=== PATIENT | female | born 1965 | race Hispanic/Latino ===

== ENCOUNTER 2018-01-12 00:54 | Emergency (ER) | payer SELFPAY ==
[2018-01-12] MEDS ORDERED: DIPHENHYDRAMINE 50 MG/ML VIAL ONE (01:56)
[2018-01-12] MEDS ORDERED: KETOROLAC 30 MG/ML INJ ONE (01:56)
[2018-01-12] MEDS ORDERED: NA CHLORIDE 0.9% 1,000 ML ONE (01:56)
[2018-01-12] MEDS ORDERED: METOCLOPRAMIDE 10 MG/2mL INJ ONE (01:56)
--- NOTE | 2018-01-12 02:37 | ER ---
Nurse's Notes [facility] Name: Della Cortez Age: 52 yrs Sex: Female : 1965 Arrival Date: 01/12/2018 Time: 01:04 Bed 17 Private MD: Diagnosis: Migraine Presentation: 01/12 01:19 Presenting complaint: Patient states: "I have had a migraine since yesterday at noon, I bs1 have a history of migraines, I am very sensitive to light and I am nauseous.". Transition of care: patient was not received from another setting of care. Onset of symptoms was January 11, 2018 at 12:00. Initial Sepsis Screen: Does the patient meet any 2 criteria? No. Patient's initial sepsis screen is negative. Does the patient have a suspected source of infection? No. Patient's initial sepsis screen is negative. Care prior to arrival: None. 01:19 Method Of Arrival: Ambulatory bs1 01:19 Acuity: MURRAY 4 bs1 Triage Assessment: 01:27 Headache History: The patient has had previous headaches and this one is similar to bs1 previous episodes. General: Appears in no apparent distress. uncomfortable. Pain: Also complains of nausea, inability to concentrate, sensitive to light. Pain: Complains of pain in head- frontal region. 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 - Social history:: Smoking status: Patient/guardian denies using tobacco. Screenin:23 Abuse screen: Denies threats or abuse. Denies injuries from another. Nutritional bs1 screening: No deficits noted. Tuberculosis screening: No symptoms or risk factors identified. Fall Risk None identified. Assessment: 01:25 General: Appears in no apparent distress. uncomfortable, Behavior is calm, cooperative, bs1 appropriate for age. Pain: Complains of pain in head- frontal Pain does not radiate. Pain currently is 10 out of 10 on a pain scale. Quality of pain is described as throbbing, Pain began gradually. Neuro: Level of Consciousness is awake, alert, obeys commands, Oriented to person, place, time, situation, Appropriate for age Instrument Adjuster are equal bilaterally Moves all extremities. Reports headache frontal area. Cardiovascular: Denies chest pain, palpitations, shortness of breath, Heart tones S1 S2 present. Cardiovascular: Capillary refill < 3 seconds Patient's skin is warm and dry. Respiratory: Airway is patent Trachea midline Respiratory effort is even, unlabored, Respiratory pattern is regular, symmetrical, Breath sounds are clear bilaterally. GI: Abdomen is round Bowel sounds present X 4 quads. Reports nausea. : No deficits noted. No signs and/or symptoms were reported regarding the genitourinary system. EENT: Reports sensitivity to light. Derm: Skin is intact, Skin is pink, warm \\T\\ dry. Skin temperature is warm. Musculoskeletal: Circulation, motion, and sensation intact. Capillary refill < 3 seconds, Range of motion: intact in all extremities. Vital Signs: 01:24 BP 128 / 87; Pulse 68; Resp 17; Temp 97.4(T); Pulse Ox 97% on R/A; Weight 83.91 kg; bs1 Height 5 ft. 2 in. (157.48 cm); Pain 10/10; 02:30 BP 101 / 72; Pulse 74; Resp 17; Pulse Ox 100% on R/A; Pain 0/10; bs1 01:24 Body Mass Index 33.84 (83.91 kg, 157.48 cm) bs1 ED Course: 01:04 Patient arrived in ED. es 01:17 Ruben Roth NP is PHCP. pm1 01:17 Joesph Wood MD is Attending Physician. pm1 01:19 Shelly Skinner RN is Primary Nurse. bs1 01:21 Triage completed. bs1 01:27 Patient has correct armband on for positive identification. Bed in low position. Call bs1 light in reach. Side rails up X 1. Pulse ox on. NIBP on. 01:28 Arm band placed on left wrist. bs1 02:02 Inserted saline lock: 22 gauge in right antecubital area, using aseptic technique. bs1 02:52 No provider procedures requiring assistance completed. bs1 02:53 IV discontinued, bleeding controlled, No redness/swelling at site. Pressure dressing bs1 applied. Administered Medications: 02:02 Drug: Reglan 10 mg Route: IVP; Site: right antecubital; bs1 02:54 Follow up: Response: No adverse reaction bs1 02:02 Drug: Benadryl 25 mg Route: IVP; Site: right antecubital; bs1 02:54 Follow up: Response: No adverse reaction bs1 02:02 Drug: TORadol 30 mg Route: IVP; Site: right antecubital; bs1 02:54 Follow up: Response: No adverse reaction; Pain is decreased bs1 02:02 Drug: NS 0.9% 1000 ml Route: IV; Rate: 1000 ml; Site: right antecubital; bs1 02:53 Follow up: IV Status: Order to discontinue infusion; IV Intake: 700ml bs1 Intake: 02:53 IV: 700ml; Total: 700ml. bs1 Outcome: 02:36 Discharge ordered by MD. pm1 02:53 Discharged to home ambulatory. bs1 02:53 Condition: stable 02:53 Discharge instructions given to patient, Instructed on discharge instructions, follow up and referral plans. medication usage, Demonstrated understanding of instructions, follow-up care, medications, Prescriptions given X 1. 02:54 Patient left the ED. bs1 Signatures: Rochelle Fiore Patrick, NP SUIT MAKER pm1 Shelly Skinner RN RN bs1
--- NOTE | 2018-01-12 02:37 | EDPHYS ---
Physician Documentation [facility] Name: Della Cortez Age: 52 yrs Sex: Female : 1965 Arrival Date: 01/12/2018 Time: 01:04 Bed 17 Private MD: ED Physician Joesph Wood HPI: 01/12 01:49 This 52 yrs old Female presents to ER via Ambulatory with complaints of pm1 Headache. 01:49 The patient complains of pain to the forehead and right eye. The patient describes the pm1 headache as aching, constant. Onset: The symptoms/episode began/occurred yesterday. Associated signs and symptoms: Pertinent positives: nausea, Pertinent negatives: altered mental status, fever, vomiting. Severity of symptoms: in the emergency department the pain is actually worse. Headache History: The patient has had previous headaches and this one is similar to previous episodes. The symptoms are alleviated by nothing. the symptoms are aggravated by lights. The patient has experienced similar episodes in the past, and the symptoms today are exactly the same, to previous migraine headaches. The patient has not recently seen a physician. 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 - Social history:: Smoking status: Patient/guardian denies using tobacco. ROS: 01:49 Constitutional: Negative for fever, chills, and weight loss, Eyes: Negative for injury, pm1 pain, redness, and discharge, ENT: Negative for injury, pain, and discharge, Neck: Negative for injury, pain, and swelling, Cardiovascular: Negative for chest pain, palpitations, and edema, Respiratory: Negative for shortness of breath, cough, wheezing, and pleuritic chest pain, Abdomen/GI: Negative for abdominal pain, nausea, vomiting, diarrhea, and constipation, Back: Negative for injury and pain, MS/Extremity: Negative for injury and deformity, Skin: Negative for injury, rash, and discoloration. :49 Neuro: Positive for headache. Exam: :49 Constitutional: This is a well developed, well nourished patient who is awake, alert, pm1 and in no acute distress. Head/Face: Normocephalic, atraumatic. Eyes: Pupils equal round and reactive to light, extra-ocular motions intact. Lids and lashes normal. Conjunctiva and sclera are non-icteric and not injected. Cornea within normal limits. Periorbital areas with no swelling, redness, or edema. ENT: Nares patent. No nasal discharge, no septal abnormalities noted. Tympanic membranes are normal and external auditory canals are clear. Oropharynx with no redness, swelling, or masses, exudates, or evidence of obstruction, uvula midline. Mucous membranes moist. Neck: Trachea midline, no thyromegaly or masses palpated, and no cervical lymphadenopathy. Supple, full range of motion without nuchal rigidity, or vertebral point tenderness. No Meningismus. Chest/axilla: Normal chest wall appearance and motion. Nontender with no deformity. No lesions are appreciated. Cardiovascular: Regular rate and rhythm with a normal S1 and S2. No gallops, murmurs, or rubs. Normal PMI, no JVD. No pulse deficits. Respiratory: Lungs have equal breath sounds bilaterally, clear to auscultation and percussion. No rales, rhonchi or wheezes noted. No increased work of breathing, no retractions or nasal flaring. Abdomen/GI: Soft, non-tender, with normal bowel sounds. No distension or tympany. No guarding or rebound. No evidence of tenderness throughout. Back: No spinal tenderness. No costovertebral tenderness. Full range of motion. Skin: Warm, dry with normal turgor. Normal color with no rashes, no lesions, and no evidence of cellulitis. MS/ Extremity: Pulses equal, no cyanosis. Neurovascular intact. Full, normal range of motion. :49 Neuro: Orientation: is normal, Mentation: is normal, Cranial nerves: CN II- XII are normal as tested, Cerebellar function: normal finger to nose testing, Motor: moves all fours, Sensation: is normal, no obvious gross deficits. Vital Signs: 01:24 BP 128 / 87; Pulse 68; Resp 17; Temp 97.4(T); Pulse Ox 97% on R/A; Weight 83.91 kg; bs1 Height 5 ft. 2 in. (157.48 cm); Pain 10/10; 02:30 BP 101 / 72; Pulse 74; Resp 17; Pulse Ox 100% on R/A; Pain 0/10; bs1 01:24 Body Mass Index 33.84 (83.91 kg, 157.48 cm) bs1 MDM: 01:21 Patient medically screened. darline 01:49 Data reviewed: vital signs. Data interpreted: Pulse oximetry: on room air is 97 %. pm1 Interpretation: normal. 02:36 Counseling: I had a detailed discussion with the patient and/or guardian regarding: the pm1 historical points, exam findings, and any diagnostic results supporting the discharge/admit diagnosis, the need for outpatient follow up, to return to the emergency department if symptoms worsen or persist or if there are any questions or concerns that arise at home. Administered Medications: 02:02 Drug: Reglan 10 mg Route: IVP; Site: right antecubital; bs1 02:54 Follow up: Response: No adverse reaction bs1 02:02 Drug: Benadryl 25 mg Route: IVP; Site: right antecubital; bs1 02:54 Follow up: Response: No adverse reaction bs1 02:02 Drug: TORadol 30 mg Route: IVP; Site: right antecubital; bs1 02:54 Follow up: Response: No adverse reaction; Pain is decreased bs1 02:02 Drug: NS 0.9% 1000 ml Route: IV; Rate: 1000 ml; Site: right antecubital; bs1 02:53 Follow up: IV Status: Order to discontinue infusion; IV Intake: 700ml bs1 Disposition: 18 02:36 Discharged to Home. Impression: Migraine. - Condition is Stable. - Discharge Instructions: Migraine Headache. - Prescriptions for Fiorinal 50- 325-40 mg Oral Capsule - take 1 capsule by ORAL route every 4 hours As needed - not to exceed 6 capsules per day; 20 capsule. - Medication Reconciliation Form, Thank You Letter, Work release form form. - Follow up: Emergency Department; When: As needed; Reason: Worsening of condition. Follow up: Private Physician; When: 2 - 3 days; Reason: Recheck today's complaints, Continuance of care, Re-evaluation by your physician. - Problem is new. - Symptoms have improved. Addendum: 01/13/2018 07:27 Co-signature as Attending Physician, Joesph Wood MD I agree with the assessment and c hampton plan of care. Signatures: Joesph Wood, Ruben Haynes MD, cha, FORMING YARDAGE CONTROL OPERATOR FORMING YARDAGE CONTROL OPERATOR pm1 Shelly Skinner, RN RN bs1
[2018-01-12 03:14] VITALS: BP 128/87; TEMP 97.4; O2SAT 97
== END 2018-01-12 02:54 | disposition home or self-care (01) ==
LOC: ER 00:54
DX: G43.909 Migraine, unspecified, not intractable, without status migrainosus (principal); E11.9 Type 2 diabetes mellitus without complications; Z88.0 Allergy status to penicillin; Z88.1 Allergy status to other antibiotic agents
CPT/HCPCS: 96361; 96374; 96375; 99284; J2765; J7030

== ENCOUNTER 2018-04-12 05:30 | Emergency (ER) | payer SELFPAY ==
--- NOTE | 2018-04-12 06:27 | ER ---
Nurse's Notes [facility] Name: Della Cortez Age: 52 yrs Sex: Female : 1965 Arrival Date: 04/12/2018 Time: 05:34 Bed 8 Private MD: out of town, doctor Diagnosis: Type 2 diabetes mellitus with diabetic polyneuropathy Presentation: 04/12 05:42 Presenting complaint: Patient states: I've been having pain in my fingers and hands for tl2 about 3 days and now it's going up to my arms. My diabetes doctor said I'm developing nerve damage, but I haven't been able to get an appointment. Transition of care: patient was not received from another setting of care. Onset of symptoms was April 09, 2018. Risk Assessment: Do you want to hurt yourself or someone else? Patient reports no desire to harm self or others. Initial Sepsis Screen: Does the patient meet any 2 criteria? No. Patient's initial sepsis screen is negative. Does the patient have a suspected source of infection? No. Patient's initial sepsis screen is negative. Care prior to arrival: None. 05:42 Method Of Arrival: Ambulatory tl2 05:42 Acuity: MURRAY 4 tl2 Triage Assessment: 05:46 General: Appears in no apparent distress. uncomfortable, Behavior is calm, cooperative, tl2 appropriate for age. Pain: Complains of pain in right hand, left hand, right arm and left arm. Historical: - Allergies: 05:46 PENICILLINS; tl2 05:46 Levaquin; tl2 - Home Meds: 05:46 Metformin Oral [Active]; aspirin 81 mg Oral chew 1 tab once daily [Active]; tl2 - PMHx: 05:46 Diabetes - NIDDM; Migraines; Arthritis; tl2 - Immunization history:: Adult Immunizations up to date. - Social history:: Smoking status: Patient/guardian denies using tobacco. - Ebola Screening: : No symptoms or risks identified at this time. Screenin:47 Abuse screen: Denies threats or abuse. Nutritional screening: No deficits noted. tl2 Tuberculosis screening: No symptoms or risk factors identified. Fall Risk None identified. Assessment: 06:00 General: Appears in no apparent distress. uncomfortable, Behavior is calm, cooperative, bp appropriate for age. Pain: Complains of pain in right hand and left hand. Neuro: Level of Consciousness is awake, alert, obeys commands, Oriented to person, place, time, situation, Appropriate for age. Cardiovascular: No deficits noted. Respiratory: Airway is patent Respiratory effort is even, unlabored, Respiratory pattern is regular, symmetrical. GI: No signs and/or symptoms were reported involving the gastrointestinal system. : No signs and/or symptoms were reported regarding the genitourinary system. EENT: No deficits noted. Derm: No deficits noted. Musculoskeletal: Circulation, motion, and sensation intact. Range of motion: intact in all extremities. 07:03 Reassessment: Patient appears in no apparent distress at this time. Patient and/or tw2 family updated on plan of care and expected duration. Pain level reassessed. Patient is alert, oriented x 3, equal unlabored respirations, skin warm/dry/pink. Vital Signs: 05:46 BP 127 / 72; Pulse 65; Resp 18; Temp 97.7(O); Pulse Ox 97% on R/A; Weight 86.18 kg; tl2 Height 5 ft. 2 in. (157.48 cm); Pain 7/10; 06:44 BP 108 / 69; Pulse 72; Resp 16; Pulse Ox 99% on R/A; mt 05:46 Body Mass Index 34.75 (86.18 kg, 157.48 cm) tl2 ED Course: 05:34 Patient arrived in ED. es 05:35 out of town, doctor is Private Physician. es 05:36 Shaun Thomas, RN is Primary Nurse. bp 05:43 Triage completed. tl2 05:46 Arm band placed on right wrist. tl2 05:47 Patient has correct armband on for positive identification. Bed in low position. Call tl2 light in reach. Side rails up X 1. 06:10 [facility]endano [facility] jr8 06:10 Trevor Benavides MD is Attending Physician. jr8 07:02 No provider procedures requiring assistance completed. Patient did not have IV access tw2 during this emergency room visit. Administered Medications: No medications were administered Outcome: 06:27 Discharge ordered by . jr8 07:02 Discharged to home ambulatory. tw2 07:02 Condition: stable 07:02 Discharge instructions given to patient, Instructed on discharge instructions, follow up and referral plans. medication usage, Demonstrated understanding of instructions, follow-up care, medications, Prescriptions given X 1. 07:03 Patient left the ED. tw2 Signatures: Rochelle Fiore Josh, PA PA jr8 Radha Dunn RN RN tw2 Otilia Bledsoe RN RN tl2 Errol Shineah Shaun Alvarado RN RN bp
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
[2018-04-12 07:09] VITALS: TEMP 97.7
[2018-04-12 07:10] VITALS: BP 108/69; O2SAT 99
== END 2018-04-12 07:03 | disposition home or self-care (01) ==
LOC: ER 05:30
DX: E11.42 Type 2 diabetes mellitus with diabetic polyneuropathy (principal); Z79.84 Long term (current) use of oral hypoglycemic drugs; Z88.1 Allergy status to other antibiotic agents; Z88.0 Allergy status to penicillin; Z79.82 Long term (current) use of aspirin
CPT/HCPCS: 99282

== ENCOUNTER 2018-05-19 08:57 | Emergency (ER) | payer SELFPAY ==
[2018-05-19] MEDS ORDERED: METOCLOPRAMIDE 10 MG/2mL INJ ONE (09:41)
[2018-05-19] MEDS ORDERED: NA CHLORIDE 0.9% 1,000 ML ONE (09:41)
[2018-05-19] MEDS ORDERED: DIPHENHYDRAMINE 50 MG/ML VIAL ONE (09:41)
--- NOTE | 2018-05-19 10:53 | RAD REPORT ---
EXAM DESCRIPTION: RAD - Chest Pa And Lat (2 Views) - 05/19/2018 9:47 am CLINICAL HISTORY: cough, fever Chest pain. COMPARISON: Chest Single View dated 09/10/2017; Chest Pa And Lat (2 Views) dated 07/13/2017; Chest S meghann View dated 06/02/2017; Chest Single View dated 05/06/2017 FINDINGS: The lungs are clear of acute infiltrate. Small granuloma likely present left lung base lat erally. The heart is normal in size. No displaced fractures. IMPRESSION: No acute or concerning finding suspected.
--- NOTE | 2018-05-19 11:26 | ER ---
Nurse's Notes [facility] Name: Della Cortez Age: 52 yrs Sex: Female : 1965 Arrival Date: 05/19/2018 Time: 08:59 Bed 14 Private MD: out of town, doctor Diagnosis: Acute pharyngitis;Acute sinusitis Presentation: 05/19 09:08 Presenting complaint: Patient states: Pt reports sore throat, productive cough, vishnu ear ph pain, headache, mild SOB, dizziness, fever, and nausea x 3 days. TMAX 101, denies V/D. Transition of care: patient was not received from another setting of care. Onset of symptoms was May 19, 2018. Risk Assessment: Do you want to hurt yourself or someone else? Patient reports no desire to harm self or others. Initial Sepsis Screen: Does the patient meet any 2 criteria? No. Patient's initial sepsis screen is negative. Does the patient have a suspected source of infection? No. Patient's initial sepsis screen is negative. Care prior to arrival: Medication(s) given: Theraflu at 0400. 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 - Social history:: Smoking status: Patient/guardian denies using tobacco. - Ebola Screening: : No symptoms or risks identified at this time. Screenin:02 Abuse screen: Denies threats or abuse. Nutritional screening: No deficits noted. rb1 Tuberculosis screening: No symptoms or risk factors identified. Fall Risk None identified. Assessment: 09:02 General: Appears uncomfortable, Behavior is calm, cooperative, Reports fever for rb1 feeling ill for > 3 days, Last . Pain: Complains of pain in head Pain currently is 9 out of 10 on a pain scale. Neuro: Level of Consciousness is awake, alert, obeys commands, Oriented to person, place, time, situation. Cardiovascular: Capillary refill < 3 seconds is brisk in bilateral fingers. Respiratory: Airway is patent Respiratory effort is even, unlabored, Respiratory pattern is regular, symmetrical. Respiratory: Reports cough that is productive, yellow sputum Sputum is yellow. GI: No signs and/or symptoms were reported involving the gastrointestinal system. : No signs and/or symptoms were reported regarding the genitourinary system. Derm: Skin is dry, Skin is normal, Skin temperature is warm. 10:00 Reassessment: Patient appears in no apparent distress at this time. Patient and/or rb1 family updated on plan of care and expected duration. Pain level reassessed. Patient is alert, oriented x 3, equal unlabored respirations, skin warm/dry/pink. Patient states feeling better. 11:00 Reassessment: Patient appears in no apparent distress at this time. No changes from rb1 previously documented assessment. 11:30 Reassessment: Patient appears in no apparent distress at this time. Patient and/or rb1 family updated on plan of care and expected duration. Pain level reassessed. Patient is alert, oriented x 3, equal unlabored respirations, skin warm/dry/pink. Vital Signs: 09:10 BP 126 / 79; Pulse 89; Resp 18; Temp 98.0(TE); Pulse Ox 97% on R/A; Weight 83.91 kg; ph Height 5 ft. 2 in. (157.48 cm); Pain 9/10; 10:01 BP 106 / 92; Pulse 79; Resp 17; Pulse Ox 97% on R/A; dh3 10:51 BP 114 / 64; Pulse 83; Resp 16; Pulse Ox 99% on R/A; dh3 11:30 BP 119 / ???; Pulse 68; Resp 16; Pulse Ox 100% on R/A; rb1 09:10 Body Mass Index 33.84 (83.91 kg, 157.48 cm) ph ED Course: 08:59 Patient arrived in ED. sb2 09:00 out of town, doctor is Private Physician. sb2 09:02 Galindo Avina PA is PHCP. jmm 09:02 Joesph Wood MD is Attending Physician. jmm 09:02 Patient has correct armband on for positive identification. Bed in low position. Call rb1 light in reach. Side rails up X 1. Pulse ox on. NIBP on. 09:10 Triage completed. ph 09:13 Arm band placed on Patient placed in an exam room, on a stretcher. ph 09:18 Magda Rosen, RN is Primary Nurse. rb1 09:25 Missed attempt(s): 20 gauge in right hand. Bleeding controlled, band aid applied, dh3 catheter tip intact. 09:30 Inserted saline lock: 20 gauge in left antecubital area, using aseptic technique. Blood dh3 collected. 09:33 Strep swab sent to lab. dh3 09:44 X-ray completed. Patient tolerated procedure well. Patient moved to radiology via tm4 wheelchair. Patient moved back from radiology. 09:45 Chest Pa And Lat (2 Views) XRAY In Process Unspecified. EDMS 11:58 No provider procedures requiring assistance completed. IV discontinued, intact, hb bleeding controlled, No redness/swelling at site. Pressure dressing applied. Administered Medications: 09:26 CANCELLED (Duplicate Order): NS 0.45 % with KCl 20 mEq/L 1000 ml IV at 125 ml/hr once [facility] 09:50 Drug: Reglan 10 mg Route: IVP; Site: left antecubital; rb1 10:10 Follow up: Response: No adverse reaction rb1 09:50 Drug: diphenhydrAMINE 12.5 mg Route: IVP; Site: left antecubital; rb1 10:10 Follow up: Response: No adverse reaction rb1 09:50 Drug: NS 0.9% 1000 ml Route: IV; Rate: 1 bolus; Site: left antecubital; rb1 11:08 Follow up: IV Status: Completed infusion rb1 Outcome: 11:26 Discharge ordered by . [facility] 11:58 Discharged to home ambulatory. hb 11:58 Condition: stable 11:58 Discharge instructions given to patient, Instructed on discharge instructions, follow up and referral plans. medication usage, Demonstrated understanding of instructions, follow-up care, medications, Prescriptions given X 2. 11:59 Patient left the ED. hb Signatures: Dispatcher [employer] EDMS Mickail, JOSSY Medley Tracy 4 Reena Kang RN RN ph Magda Rosen, RN RN rb1 Eliz Sparks RN RN [facility] Ayanna Osuna 2
--- NOTE | 2018-05-19 11:26 | EDPHYS ---
Physician Documentation [facility] Name: Della Cortez Age: 52 yrs Sex: Female : 1965 Arrival Date: 05/19/2018 Time: 08:59 Bed 14 Private MD: out of town, doctor ED Physician Joesph Wood HPI: 05/19 09:10 This 52 yrs old Female presents to ER via Ambulatory with complaints of Flu jmm Symptoms. 09:10 The patient or guardian reports cough. Onset: The symptoms/episode began/occurred jmm gradually, 3 day(s) ago. Associated signs and symptoms: Pertinent positives: fever, sore throat. This is a 52 year old female with a history of DM, vertigo, that presents to the ED with sore throat, headache, and cough beginning 3 days ago. Patient states her roommate has similar symptoms. Patient states having a low grade fever at home. Patient also complains of sinus congestion and pressure. . 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 - Social history:: Smoking status: Patient/guardian denies using tobacco. - Ebola Screening: : No symptoms or risks identified at this time. ROS: 09:10 Neck: Negative for injury, pain, and swelling, Cardiovascular: Negative for chest pain, jmm palpitations, and edema. 09:10 Abdomen/GI: Negative for abdominal pain, nausea, vomiting, diarrhea, and constipation, MS/Extremity: Negative for injury and deformity, Skin: Negative for injury, rash, and discoloration. 09:10 Constitutional: Positive for fever. 09:10 ENT: Positive for sore throat. 09:10 Respiratory: Positive for cough. 09:10 Neuro: Positive for headache. 09:10 All other systems are negative. Exam: 09:10 Head/Face: atraumatic. [facility] 09:10 Constitutional: The patient appears in no acute distress, alert, awake. 09:10 ENT: TM's: are normal, Examination of the other ear shows no obvious abnormality, Posterior pharynx: is normal, Uvula: normal, swelling, is not appreciated, erythema, is not appreciated. 09:10 Neck: ROM/movement: is normal. 09:10 Cardiovascular: Rate: normal, Rhythm: regular. 09:10 Respiratory: the patient does not display signs of respiratory distress, Respirations: normal. 09:10 Abdomen/GI: Inspection: abdomen appears normal, Bowel sounds: normal, Palpation: abdomen is soft and non-tender. 09:10 Back: ROM is normal. 09:10 Musculoskeletal/extremity: ROM: intact in all extremities. 09:10 Skin: Appearance: Color: normal in color. 09:10 Neuro: Orientation: is normal, Mentation: is normal, Memory: is normal. 09:10 Neuro: Motor: is normal. 09:10 Psych: Behavior/mood is pleasant, cooperative. Vital Signs: 09:10 BP 126 / 79; Pulse 89; Resp 18; Temp 98.0(TE); Pulse Ox 97% on R/A; Weight 83.91 kg; ph Height 5 ft. 2 in. (157.48 cm); Pain 9/10; 10:01 BP 106 / 92; Pulse 79; Resp 17; Pulse Ox 97% on R/A; dh3 10:51 BP 114 / 64; Pulse 83; Resp 16; Pulse Ox 99% on R/A; dh3 11:30 BP 119 / ???; Pulse 68; Resp 16; Pulse Ox 100% on R/A; rb1 09:10 Body Mass Index 33.84 (83.91 kg, 157.48 cm) ph MDM: 09:10 Patient medically screened. darline 10:54 Data reviewed: vital signs, nurses notes. Counseling: I had a detailed discussion with daniel the patient and/or guardian regarding: the historical points, exam findings, and any diagnostic results supporting the discharge/admit diagnosis, the presence of at least one elevated blood pressure reading (>120/80) during this emergency department visit, lab results, radiology results, the need for outpatient follow up, to return to the emergency department if symptoms worsen or persist or if there are any questions or concerns that arise at home. Response to treatment: the patient's symptoms have markedly improved after treatment. 05/19 09:26 Order name: Strep; Complete Time: 10:22 jm 05/19 10:09 Order name: Throat Culture EDMS 05/19 09:26 Order name: Chest Pa And Lat (2 Views) XRAY; Complete Time: 10:54 jm Administered Medications: : CANCELLED (Duplicate Order): NS 0.45 % with KCl 20 mEq/L 1000 ml IV at 125 ml/hr once [facility] 09:50 Drug: Reglan 10 mg Route: IVP; Site: left antecubital; rb1 10:10 Follow up: Response: No adverse reaction [facility] 09:50 Drug: diphenhydrAMINE 12.5 mg Route: IVP; Site: left antecubital; rb1 10:10 Follow up: Response: No adverse reaction [facility] 09:50 Drug: NS 0.9% 1000 ml Route: IV; Rate: 1 bolus; Site: left antecubital; rb1 11:08 Follow up: IV Status: Completed infusion rb1 Disposition: 05/20 06:38 Co-signature as Attending Physician, Joesph Wood MD I agree with the assessment and darline plan of care. Disposition: 05/19/18 11:26 Discharged to Home. Impression: Acute pharyngitis, Acute sinusitis. - Condition is Stable. - Discharge Instructions: Pharyngitis, Sinusitis, Adult. - Prescriptions for Zithromax Z- Jaron 250 mg Oral Tablet - take 1 tablet by ORAL route as directed for 5 days Day 1 - take two (2) tablets one time. Day 2, 3, 4 , 5 take one (1) tablet once daily.; 6 tablet. Meclizine 25 mg Oral Tablet - take 1 tablet by ORAL route every 8 hours As needed; 30 tablet. - Medication Reconciliation Form, Thank You Letter, Antibiotic Education, Prescription Opioid Use form. - Follow up: Private Physician; When: 2 - 3 days; Reason: Recheck today's complaints, Continuance of care, Re-evaluation by your physician. Signatures: Dispatcher [employer] Joesph Mckeon MD MD cha Mickail, Joel, PA PA jmm Hall, Patricia, RN RN Magda Rosen, RN RN [facility] Eliz Sparks RN RN Corrections: (The following items were deleted from the chart) 05/19 09:26 09:26 NS 0.45 % with KCl 20 mEq/L 1000 ml IV at 125 ml/hr once ordered. daniel sanchez 11:59 11:26 05/19/2018 11:26 Discharged to Home. Impression: Acute pharyngitis; Acute hb sinusitis. Condition is Stable. Forms are Medication Reconciliation Form, Thank You Letter, Antibiotic Education, Prescription Opioid Use. Follow up: Private Physician; When: 2 - 3 days; Reason: Recheck today's complaints, Continuance of care, Re-evaluation by your physician. daniel
[2018-05-19 12:06] VITALS: TEMP 98
[2018-05-19 12:09] VITALS: BP 114/64; O2SAT 99
== END 2018-05-19 11:59 | disposition home or self-care (01) ==
LOC: ER 08:57
DX: J02.9 Acute pharyngitis, unspecified (principal); J01.90 Acute sinusitis, unspecified; Z88.1 Allergy status to other antibiotic agents; Z88.0 Allergy status to penicillin; M19.90 Unspecified osteoarthritis, unspecified site; E11.9 Type 2 diabetes mellitus without complications; Z79.84 Long term (current) use of oral hypoglycemic drugs; G43.909 Migraine, unspecified, not intractable, without status migrainosus
CPT/HCPCS: 71046; 87070; 87081; 96361; 96374; 96375; 99284; J2765; J7030

== ENCOUNTER 2018-10-17 21:13 | Emergency (ER) | payer SELFPAY ==
[2018-10-17 21:50] LABS: Urine Blood 1+ (NEG); Urine Glucose 1+ (NEG); Urine Protein TRACE (NEG)
[2018-10-17] MEDS ORDERED: KETOROLAC 30 MG/ML INJ ONE (21:51)
[2018-10-17] MEDS ORDERED: ONDANSETRON 4 MG/2 ML VIAL ONE (21:51)
[2018-10-17] MEDS ORDERED: NA CHLORIDE 0.9% 1,000 ML ONE (21:51)
[2018-10-17] MEDS ORDERED: MORPHINE 4 MG/ML SYR ONE (21:51)
[2018-10-17 21:59] LABS: Absolute Monocytes 0.6 K/uL (0.1-1.3); Absolute Neutrophil 3.3 K/uL (1.8-8.0); Basophils % 0.7 % (0-1.3); Eosinophils % 3.5 % (0-4.4); Hematocrit 44.5 % (36.0-45.0); Lymphocytes % 48.6 % (15.3-44.8); MPV 10.1 fL (7.6-11.3); Monocytes % 6.9 % (3.3-12.3); RBC Red Blood Cell Count 4.63 M/uL (3.86-4.86)
[2018-10-17 22:25] LABS: Albumin 4.1 g/dL (3.4-5.0); Bilirubin Total 0.7 mg/dL (0.2-1.0); Potassium 4.1 mmol/L (3.5-5.1); Protein, Total 8.1 g/dL (6.4-8.2)
[2018-10-17] MEDS ORDERED: SMZ./TMP. 800/160 MG TABLET ONE (23:02)
[2018-10-17] MEDS ORDERED: CEFTRIAXONE/SWI 1gm 1 GM/10 ML SYR ONE (23:02)
--- NOTE | 2018-10-17 23:18 | EDPHYS ---
Physician Documentation [facility] Name: Della Cortez Age: 53 yrs Sex: Female : 1965 Arrival Date: 10/17/2018 Time: 21:15 Bed 28 Private MD: Joesph Soliman HPI: 10/17 21:29 This 53 yrs old Female presents to ER via Unassigned with complaints of Hip darline Pain, Fall Injury - 8 days ago. 21:29 The patient or guardian reports decreased range of motion, an injury, pain. that darline occurred at home, sustained from a fall, There is no obvious deformity, The patient is able to self ambulate. The patient is able to bear partial body weight. There is no radiation of the patient's discomfort. The complaints affect the left lower back and left gluteus kayden. Onset: The symptoms/episode began/occurred 8 day(s) ago. Modifying factors: The symptoms are alleviated by remaining still, the symptoms are aggravated by nothing, any movement, internal rotation. Associated signs and symptoms: Loss of consciousness: the patient experienced no loss of consciousness, Pertinent positives: None. The patient has not experienced similar symptoms in the past. 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 - Social history:: Smoking status: Patient uses tobacco products, 3 sticks a day, Patient/guardian denies using alcohol, street drugs, IV drugs. - Family history:: not pertinent. - Ebola Screening: : No symptoms or risks identified at this time. ROS: 21:30 Constitutional: Negative for fever, chills, and weight loss, Eyes: Negative for injury, darline pain, redness, and discharge, ENT: Negative for injury, pain, and discharge, Neck: Negative for injury, pain, and swelling, Cardiovascular: Negative for chest pain, palpitations, and edema, Respiratory: Negative for shortness of breath, cough, wheezing, and pleuritic chest pain, Abdomen/GI: Negative for abdominal pain, nausea, vomiting, diarrhea, and constipation, Back: Negative for injury and pain, : Negative for injury, bleeding, discharge, and swelling, Skin: Negative for injury, rash, and discoloration, Neuro: Negative for headache, weakness, numbness, tingling, and seizure, Psych: Negative for depression, anxiety, suicide ideation, homicidal ideation, and hallucinations, Allergy/Immunology: Negative for hives, rash, and allergies, Endocrine: Negative for neck swelling, polydipsia, polyuria, polyphagia, and marked weight changes, Hematologic/Lymphatic: Negative for swollen nodes, abnormal bleeding, and unusual bruising. 21:30 MS/extremity: Positive for decreased range of motion, pain, tenderness, of the coccyx, left lower back and left gluteus kayden. Exam: 21:30 Constitutional: This is a well developed, well nourished patient who is awake, alert, darline and in no acute distress. Head/Face: Normocephalic, atraumatic. Eyes: Pupils equal round and reactive to light, extra-ocular motions intact. Lids and lashes normal. Conjunctiva and sclera are non-icteric and not injected. Cornea within normal limits. Periorbital areas with no swelling, redness, or edema. ENT: Nares patent. No nasal discharge, no septal abnormalities noted. Tympanic membranes are normal and external auditory canals are clear. Oropharynx with no redness, swelling, or masses, exudates, or evidence of obstruction, uvula midline. Mucous membranes moist. Neck: Trachea midline, no thyromegaly or masses palpated, and no cervical lymphadenopathy. Supple, full range of motion without nuchal rigidity, or vertebral point tenderness. No Meningismus. Chest/axilla: Normal chest wall appearance and motion. Nontender with no deformity. No lesions are appreciated. Cardiovascular: Regular rate and rhythm with a normal S1 and S2. No gallops, murmurs, or rubs. Normal PMI, no JVD. No pulse deficits. Respiratory: Lungs have equal breath sounds bilaterally, clear to auscultation and percussion. No rales, rhonchi or wheezes noted. No increased work of breathing, no retractions or nasal flaring. Abdomen/GI: Soft, non-tender, with normal bowel sounds. No distension or tympany. No guarding or rebound. No evidence of tenderness throughout. Pelvic Exam: Normal external genitalia. Speculum exam with closed cervical os, no discharge or bleeding noted. Bimanual exam with normal adnexa, no adnexal or cervical motion tenderness. Normal uterus. Female : Normal external genitalia. Skin: Warm, dry with normal turgor. Normal color with no rashes, no lesions, and no evidence of cellulitis. MS/ Extremity: Pulses equal, no cyanosis. Neurovascular intact. Full, normal range of motion. Neuro: Awake and alert, GCS 15, oriented to person, place, time, and situation. Cranial nerves II-XII grossly intact. Motor strength 5/5 in all extremities. Sensory grossly intact. Cerebellar exam normal. Normal gait. Psych: Awake, alert, with orientation to person, place and time. Behavior, mood, and affect are within normal limits. 21:30 Back: ROM is painful, normal spinal alignment noted, CVA tenderness, is absent, vertebral tenderness, is not appreciated, muscle spasm, is appreciated in the left low back, left mid back, right mid back and right low back. Vital Signs: 21:30 BP 112 / 68; Pulse 74; Resp 18; Temp 98; Pulse Ox 100% on R/A; Weight 83.91 kg; Height mg2 5 ft. 2 in. (157.48 cm); Pain 9/10; 22:35 BP 111 / 64; Pulse 69; Resp 18; Pulse Ox 100% on R/A; Pain 5/10; mg2 23:12 BP 118 / 70; Pulse 65; Resp 18; Pulse Ox 100% on R/A; Pain 4/10; mg2 21:30 Body Mass Index 33.84 (83.91 kg, 157.48 cm) mg2 MDM: 21:19 Patient medically screened. [facility] 21:32 Data reviewed: vital signs, nurses notes, lab test result(s), EKG, radiologic studies, [facility] CT scan, plain films. 10/17 21:29 Order name: CBC with Diff; Complete Time: 22:15 [facility] 10/17 21:29 Order name: Comprehensive Metabolic Panel; Complete Time: 22:34 [facility] 10/17 21:29 Order name: Pelvis XRAY [facility] 10/17 21:35 Order name: Urine Culture [facility] 10/17 21:39 Order name: Urine Dipstick--Ancillary (enter results); Complete Time: 22:15 [facility] 10/17 21:39 Order name: Urine --Ancillary (enter results); Complete Time: 22:15 [facility] 10/17 21:29 Order name: CT Lumbar Spine Wo Con [facility] 10/17 21:29 Order name: CT Pelvis wo Cont [facility] 10/17 21:29 Order name: Urine Dipstick-Ancillary (obtain specimen); Complete Time: 21:45 [facility] Administered Medications: 21:52 Drug: TORadol 30 mg Route: IVP; Site: left antecubital; mg2 23:04 Follow up: Response: No adverse reaction; Marked relief of symptoms mg2 21:52 Drug: morphine 2 mg Route: IVP; Site: left antecubital; mg2 23:03 Follow up: Response: No adverse reaction; Marked relief of symptoms mg2 21:52 Drug: Zofran 4 mg Route: IVP; Site: left antecubital; mg2 23:03 Follow up: Response: No adverse reaction; Nausea is decreased mg2 21:53 Drug: NS 0.9% 1000 ml Route: IV; Rate: 1 bolus; Site: left antecubital; mg2 22:30 Follow up: Response: No adverse reaction; IV Status: Completed infusion mg2 22:47 Drug: morphine 2 mg Route: IVP; Site: left antecubital; mg2 23:04 Follow up: Response: No adverse reaction; Pain is decreased mg2 22:59 Drug: Bactrim (160 mg-800 mg (DS) 1 tablet Route: PO; mg2 23:10 Follow up: Response: No adverse reaction; Medication administered at discharge. mg2 23:02 Drug: Rocephin - (cefTRIAXone) 1 grams Route: IVPB; Infused Over: 30 mins; Site: left mg2 antecubital; 23:10 Follow up: Response: No adverse reaction; IV Status: Completed infusion mg2 Disposition: 10/17/18 23:17 Discharged to Home. Impression: Fall due to bumping against object, Contusion of left hip, Cystitis, Type 2 diabetes mellitus, Other ovarian cysts - 3.3 cm dermoid. - Condition is Stable. - Discharge Instructions: Contusion, Dysuria, Fall Prevention in the Home, Ovarian Cyst, Ovarian Cyst, [id number], Fall Prevention in the Home, [id number]. - Prescriptions for Tylenol- Codeine #3 300-30 mg Oral Tablet - take 2 tablet by ORAL route every 6 hours As needed; 30 tablet. Motrin IB 200 mg Oral Tablet - take 2 tablet by ORAL route every 6 hours As needed as needed with food; 40 tablet. Bactrim DS 800- 160 mg Oral Tablet - take 1 tablet by ORAL route every 12 hours for 7 days; 14 tablet. - Medication Reconciliation Form, Thank You Letter, Antibiotic Education, Prescription Opioid Use form. - Follow up: Private Physician; When: 2 - 3 days; Reason: Recheck today's complaints, Continuance of care, Re-evaluation by your physician. Follow up: Kathryn Richards MD; Reason: Recheck today's complaints, Re-evaluation by your physician. - Problem is new. - Symptoms have improved. Signatures: Dispatcher [employer] EDJoesph Goodman MD MD cha Gardose, Michele, RN RN mg2 Corrections: (The following items were deleted from the chart) 23:31 23:17 10/17/2018 23:17 Discharged to Home. Impression: Fall due to bumping against mg2 object; Contusion of left hip; Cystitis; Type 2 diabetes mellitus; Other ovarian cysts - 3.3 cm dermoid. Condition is Stable. Discharge Instructions: Contusion, Dysuria, Fall Prevention in the Home, Fall Prevention in the Home, [id number]. Prescriptions for Tylenol-Codeine #3 300-30 mg Oral Tablet - take 2 tablet by ORAL route every 6 hours As needed; 30 tablet, Motrin IB 200 mg Oral Tablet - take 2 tablet by ORAL route every 6 hours As needed as needed with food; 40 tablet, Bactrim DS 800-160 mg Oral Tablet - take 1 tablet by ORAL route every 12 hours for 7 days; 14 tablet. and Forms are Medication Reconciliation Form, Thank You Letter, Antibiotic Education, Prescription Opioid Use. Follow up: Private Physician; When: 2 - 3 days; Reason: Recheck today's complaints, Continuance of care, Re-evaluation by your physician. Follow up: Kathryn Richards; Reason: Recheck today's complaints, Re-evaluation by your physician. Problem is new. Symptoms have improved. darline
--- NOTE | 2018-10-17 23:18 | ER ---
Nurse's Notes [facility] Name: Della Coretz Age: 53 yrs Sex: Female : 1965 Arrival Date: 10/17/2018 Time: 21:15 Bed 28 Private MD: Diagnosis: Fall due to bumping against object;Contusion of left hip;Cystitis;Type 2 diabetes mellitus;Other ovarian cysts-3.3 cm dermoid Presentation: 10/17 21:30 Presenting complaint: Patient states: i slipped at home 8 days ago and sustained injury mg2 in the left hip. Transition of care: patient was not received from another setting of care. 21:55 Onset of symptoms was October 09, 2018. Risk Assessment: Do you want to hurt yourself mg2 or someone else? Patient reports no desire to harm self or others. Initial Sepsis Screen: Does the patient meet any 2 criteria? No. Patient's initial sepsis screen is negative. Does the patient have a suspected source of infection? No. Patient's initial sepsis screen is negative. Care prior to arrival: None. 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 - Social history:: Smoking status: Patient uses tobacco products, 3 sticks a day, Patient/guardian denies using alcohol, street drugs, IV drugs. - Family history:: not pertinent. - Ebola Screening: : No symptoms or risks identified at this time. Screenin:02 Abuse screen: Denies threats or abuse. Denies injuries from another. Nutritional mg2 screening: No deficits noted. Tuberculosis screening: No symptoms or risk factors identified. Fall Risk IV access (20 points). Assessment: 22:03 General: Appears in no apparent distress. uncomfortable, Behavior is calm, cooperative. mg2 Pain: Complains of pain in left hip lower back Pain does not radiate. Pain currently is 9 out of 10 on a pain scale. Quality of pain is described as aching, Pain began gradually, 8 days ago Is intermittent. Neuro: Level of Consciousness is awake, alert, obeys commands, Oriented to person, place, time, situation. Cardiovascular: Capillary refill < 3 seconds Patient's skin is warm and dry. Respiratory: Airway is patent Respiratory effort is even, unlabored, Respiratory pattern is regular, symmetrical. GI: No signs and/or symptoms were reported involving the gastrointestinal system. : Urine is clear, Reports pain in right in left flank(s), in lower back. EENT: No signs and/or symptoms were reported regarding the EENT system. Derm: Skin is intact, is healthy with good turgor, Skin is pink, warm \T\ dry. normal. Musculoskeletal: Circulation, motion, and sensation intact. Capillary refill < 3 seconds, Reports pain in right low back and right mid back and left mid back and left low back. 22:36 Reassessment: patient s back from xray. mg2 23:12 Reassessment: Patient appears in no apparent distress at this time. Patient and/or mg2 family updated on plan of care and expected duration. Pain level reassessed. Patient is alert, oriented x 3, equal unlabored respirations, skin warm/dry/pink. Vital Signs: 21:30 BP 112 / 68; Pulse 74; Resp 18; Temp 98; Pulse Ox 100% on R/A; Weight 83.91 kg; Height mg2 5 ft. 2 in. (157.48 cm); Pain 9/10; 22:35 BP 111 / 64; Pulse 69; Resp 18; Pulse Ox 100% on R/A; Pain 5/10; mg2 23:12 BP 118 / 70; Pulse 65; Resp 18; Pulse Ox 100% on R/A; Pain 4/10; mg2 21:30 Body Mass Index 33.84 (83.91 kg, 157.48 cm) mg2 ED Course: 21:15 Patient arrived in ED. am2 21:19 Joesph Wood MD is Attending Physician. [facility] 21:25 Gardose, Titus, RN is Primary Nurse. mg2 21:30 Urine collected: clean catch specimen, clear, leonardo colored. jp3 21:35 Initial lab(s) drawn, by me, sent to lab. jp3 21:36 Radiology exam delayed due to getting blood work drawn and IV at this time. vm2 21:43 Inserted saline lock: 20 gauge in left forearm, using aseptic technique. Blood jp3 collected. 21:44 Bed in low position. Call light in reach. Side rails up X 1. Warm blanket given. Pillow jp3 given. Pulse ox on. NIBP on. 21:45 Urine --Ancillary (enter results) Sent. jp3 21:45 Urine Dipstick--Ancillary (enter results) Sent. jp3 21:45 Urine Culture Sent. jp3 21:45 Comprehensive Metabolic Panel Sent. jp3 21:45 CBC with Diff Sent. jp3 21:[address] vm2 21:57 Triage completed. mg2 22:05 No provider procedures requiring assistance completed. mg2 22:05 Arm band placed on. mg2 22:10 CT Lumbar Spine Wo Con In Process Unspecified. EDMS 22:10 CT Pelvis wo Cont In Process Unspecified. EDMS 22:15 CT completed. Patient tolerated procedure well. Patient moved to radiology. vm2 22:26 Pelvis XRAY In Process Unspecified. EDMS 23:17 Kathryn Richards MD is Referral Physician. darline 23:30 IV discontinued, intact, bleeding controlled, No redness/swelling at site. Pressure mg2 dressing applied. Administered Medications: 21:52 Drug: TORadol 30 mg Route: IVP; Site: left antecubital; mg2 23:04 Follow up: Response: No adverse reaction; Marked relief of symptoms mg2 21:52 Drug: morphine 2 mg Route: IVP; Site: left antecubital; mg2 23:03 Follow up: Response: No adverse reaction; Marked relief of symptoms mg2 21:52 Drug: Zofran 4 mg Route: IVP; Site: left antecubital; mg2 23:03 Follow up: Response: No adverse reaction; Nausea is decreased mg2 21:53 Drug: NS 0.9% 1000 ml Route: IV; Rate: 1 bolus; Site: left antecubital; mg2 22:30 Follow up: Response: No adverse reaction; IV Status: Completed infusion mg2 22:47 Drug: morphine 2 mg Route: IVP; Site: left antecubital; mg2 23:04 Follow up: Response: No adverse reaction; Pain is decreased mg2 22:59 Drug: Bactrim (160 mg-800 mg (DS) 1 tablet Route: PO; mg2 23:10 Follow up: Response: No adverse reaction; Medication administered at discharge. mg2 23:02 Drug: Rocephin - (cefTRIAXone) 1 grams Route: IVPB; Infused Over: 30 mins; Site: left mg2 antecubital; 23:10 Follow up: Response: No adverse reaction; IV Status: Completed infusion mg2 Outcome: 23:17 Discharge ordered by . darline 23:30 Discharged to home via wheelchair. mg2 23:30 Condition: stable 23:30 Discharge instructions given to patient, Instructed on discharge instructions, follow up and referral plans. medication usage, Demonstrated understanding of instructions, follow-up care, medications, Prescriptions given X 3. 23:31 Patient left the ED. mg2 Addendum: 10/21/2018 08:12 Addendum: Culture Results: Positive urine culture. Bacteria is resistant to, has i w intermediate sensitivity, or is not tested against prescribed antibiotics. Report given to JUAN ALBERTO for further evaluation and then to sample examiner for follow up with patient. 16:55 Addendum: Culture Results: Phone call Attempt #1 called in Macrobid 100 mg PO BID X 5 i w days, #10, no refills. Signatures: Dispatcher [employer] EDMS Joesph Wood MD MD cha Williams, Irene, RN MARY Sol Munoz am2 Germania Rangel 2 Titus Chappell RN RN mg2 Wesley Hammond jp3 Corrections: (The following items were deleted from the chart) 10/17 22:02 21:55 Presenting complaint: Patient states: i slipped at home 8 days ago and sustained mg2 injury in the left hip. mg2 22:02 21:55 Transition of care: patient was not received from another setting of care. mg2 mg2 22:48 22:35 Pulse 69bpm; Resp 18bpm; Pulse Ox 100% RA; Pain 5/10; mg2 mg2
[2018-10-17 23:48] VITALS: O2SAT 100
[2018-10-17 23:50] VITALS: TEMP 98
[2018-10-17 23:52] VITALS: BP 118/70
--- NOTE | 2018-10-18 08:43 | RAD REPORT ---
EXAM DESCRIPTION: CT - Pelvis Wo Cont - 10/18/2018 3:51 am CLINICAL HISTORY: PAIN Fall, left hip pain COMPARISON: No comparisons TECHNIQUE: All CT scans are performed using dose optimization technique as appropriate and may inclu de automated exposure control or mA/KV adjustment according to patient size. FINDINGS: No acute fracture, dislocation or aggressive marrow lesion. Both hip joints show arthritic changes without acute process. Sacral ala are intact. No soft tissue mass or hematoma. Small 3 cm right ovarian dermoid. IMPRESSION: No acute fracture or dislocation.
--- NOTE | 2018-10-18 08:45 | RAD REPORT ---
EXAM DESCRIPTION: RAD - Pelvis - 10/17/2018 10:23 pm CLINICAL HISTORY: PAIN Trauma, hip pain COMPARISON: No comparisons FINDINGS: No fracture, dislocation or radiographic evidence of AVN. Mild osteoarthritis of both hips . IMPRESSION: No acute finding demonstrated.
--- NOTE | 2018-10-18 08:45 | RAD REPORT ---
EXAM DESCRIPTION: CT - Spine Lumbar Wo Con - 10/18/2018 3:51 am CLINICAL HISTORY: Radiculopathy. PAIN COMPARISON: No comparisons TECHNIQUE: Axial noncontrast CT imaging of the lumbar spine was performed with coronal and sagittal re-formatted images. All CT scans are performed using dose optimization technique as appropriate and may include automated exposure control or mA/KV adjustment according to patient size. FINDINGS: No acute lumbar spine fracture seen. No aggressive marrow pattern or malalignment. Paraspinal tissues are normal in thickness. No paraspinal abscess or hematoma seen. Degenerative changes present in both sacroiliac joints. Mild spondylosis is present along the lower l umbar levels. IMPRESSION: No acute lumbar spine abnormality. Consider MRI follow-up for assessment of disc disease if clinically desired.
== END 2018-10-17 23:31 | disposition home or self-care (01) ==
LOC: ER 21:13
DX: S70.02XA Contusion of left hip, initial encounter (principal); N30.90 Cystitis, unspecified without hematuria; D27.0 Benign neoplasm of right ovary; E11.9 Type 2 diabetes mellitus without complications; F17.200 Nicotine dependence, unspecified, uncomplicated; Z88.1 Allergy status to other antibiotic agents; Z88.0 Allergy status to penicillin; Z79.84 Long term (current) use of oral hypoglycemic drugs; Z79.82 Long term (current) use of aspirin
CPT/HCPCS: 36415; 72131; 72170; 72192; 80053; 81003; 81025; 85025; 87077; 87086; 87088; 87186; 96361; 96374; 96375; 99284; J0696; J2405; J7030

== ENCOUNTER 2018-11-08 15:39 | Emergency (ER) | payer SELFPAY ==
--- NOTE | 2018-11-08 16:19 | EKG ---
Test Date: 2018-11-08 Test Time: 15:48:16 Sheriff: PRABHAKAR MEASUREMENT RESULTS: Intervals: Rate: 65 WV: 160 QRSD: 86 QT: 416 QTc: 432 Welcome: P: 21 WV: 160 QRS: 77 T: 69 INTERPRETIVE STATEMENTS: Normal sinus rhythm Normal ECG Compared to ECG 09/10/2017 10:25:45 No significant changes Electronically Signed On 11-08-18 16:18:04 [employer] MECH[employer]IC by Jayden Frost
[2018-11-08 16:24] LABS: Absolute Lymphocytes (CBC) 4.1 K/uL (0.7-4.9); Absolute Monocytes 0.6 K/uL (0.1-1.3); Absolute Neutrophil 3.4 K/uL (1.8-8.0); Basophils % 1.3 % (0-1.3); Eosinophils % 3.8 % (0-4.4); Hematocrit 43.9 % (36.0-45.0); Lymphocytes % 47.8 % (15.3-44.8); Monocytes % 7.3 % (3.3-12.3); RBC Red Blood Cell Count 4.48 M/uL (3.86-4.86)
[2018-11-08] MEDS ORDERED: DIPHENHYDRAMINE 50 MG/ML VIAL ONE (16:24)
[2018-11-08] MEDS ORDERED: METOCLOPRAMIDE 10 MG/2mL INJ ONE (16:24)
[2018-11-08] MEDS ORDERED: ASPIRIN 325 MG TAB ONE (16:24)
[2018-11-08 16:27] LABS: Protime INR 1.15
[2018-11-08 16:43] LABS: ALT/SGPT 99 U/L (12-78); AST/SGOT 56 U/L (15-37); Albumin 3.8 g/dL (3.4-5.0); Alkaline Phosphatase 155 U/L (45-117); BUN Blood Urea Nitrogen 6 mg/dL (7-18); Bicarbonate 26 mmol/L (21-32); Bilirubin Direct 0.1 mg/dL (0-0.2); Bilirubin Total 0.4 mg/dL (0.2-1.0); Glucose Level 209 mg/dL (74-106); Magnesium 1.9 mg/dL (1.8-2.4); NT PRO-BNP 112 pg/mL (<125); Potassium 3.4 mmol/L (3.5-5.1); Protein, Total 7.6 g/dL (6.4-8.2); Sodium Level 140 mmol/L (136-145); Troponin (Emerg Dept Use Only) < 0.02 ng/mL (0.0-0.045)
--- NOTE | 2018-11-08 16:51 | RAD REPORT ---
EXAM DESCRIPTION: Saúl Single View11/08/2018 4:29 pm CLINICAL HISTORY: Chest pain COMPARISON: April 2018 FINDINGS: The lungs appear clear of acute infiltrate. The heart is normal size IMPRESSION: No acute abnormalities displayed
[2018-11-08] MEDS ORDERED: POTASSIUM CL SA 10 MEQ TAB PO ONE (17:04)
--- NOTE | 2018-11-08 17:08 | RAD REPORT ---
EXAM DESCRIPTION: CT - Head Brain Wo Cont - 11/08/2018 4:40 pm CLINICAL HISTORY: Headache COMPARISON: 2016 TECHNIQUE: Computed axial tomography of the head was obtained. IV contrast was not requested. All CT scans are performed using dose optimization technique as appropriate and may include automated exposure control or mA/KV adjustment according to patient size. FINDINGS: An intracranial bleed is not seen . The ventricles are normal in caliber. No extra-axial fluid collection is noted. Fluid within the sinuses/ mastoids is not seen. IMPRESSION: No acute intracranial abnormality is seen. If patient's symptoms persist MRI of the bra in would be recommended.
--- NOTE | 2018-11-08 17:11 | ER ---
Nurse's Notes [facility] Name: Della Cortez Age: 53 yrs Sex: Female : 1965 Arrival Date: 11/08/2018 Time: 15:41 Bed 15 Private MD: out of town, doctor Diagnosis: Migraine;Chest pain, unspecified Presentation: 11/08 15:46 Presenting complaint: Patient states: left face/head/occipital/neck/arm/chest pain, sv left upper chest wall knot started yesterday. c/o left eye feels heavy. Denies n/v/d/fever/chills. Transition of care: patient was not received from another setting of care. Onset of symptoms was November 07, 2018. Care prior to arrival: None. 15:46 Method Of Arrival: Wheelchair sv 15:46 Acuity: MURRAY 3 sv 15:57 Risk Assessment: Do you want to hurt yourself or someone else? Patient reports no hj desire to harm self or others. Initial Sepsis Screen: Does the patient meet any 2 criteria? No. Patient's initial sepsis screen is negative. Does the patient have a suspected source of infection? No. Patient's initial sepsis screen is negative. Triage Assessment: 15:56 General: Appears in no apparent distress. uncomfortable, Behavior is calm, cooperative, hj appropriate for age. Pain: Complains of pain in chest Pain radiates to left arm. EENT: No signs and/or symptoms were reported regarding the EENT system. Neuro: Level of Consciousness is awake, alert, obeys commands, Oriented to person, place, time, situation, Appropriate for age. Cardiovascular: Capillary refill < 3 seconds Patient's skin is warm and dry. Respiratory: Airway is patent Respiratory effort is even, unlabored, Respiratory pattern is regular, symmetrical. GI: No signs and/or symptoms were reported involving the gastrointestinal system. : No signs and/or symptoms were reported regarding the genitourinary system. Derm: No signs and/or symptoms reported regarding the dermatologic system. Musculoskeletal: No signs and/or symptoms reported regarding the musculoskeletal system. 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 - Social history:: Smoking status: Patient uses tobacco products, denies chronic smoking, but will smoke occasionally, Patient/guardian denies using alcohol. - Ebola Screening: : No symptoms or risks identified at this time. Screenin:56 Abuse screen: Denies threats or abuse. Denies injuries from another. Nutritional hj screening: No deficits noted. Tuberculosis screening: No symptoms or risk factors identified. Fall Risk None identified. Assessment: 16:09 Pain: Pain began 3 hours ago. hj Vital Signs: 15:49 BP 131 / 73; Pulse 68; Resp 20; Pulse Ox 98% ; Weight 86.18 kg; Height 5 ft. 2 in. sv (157.48 cm); 17:11 BP 130 / 74; Pulse 70; Resp 18; Pulse Ox 100% on R/A; hj 15:49 Body Mass Index 34.75 (86.18 kg, 157.48 cm) sv ED Course: 15:41 Patient arrived in ED. mr 15:42 out of town, doctor is Private Physician. mr 15:48 Triage completed. sv 15:49 Dale Avendano PA is PHCP. jr8 15:49 Joesph Wood MD is Attending Physician. jr8 15:49 Arm band placed on. sv 15:50 Jan Ko, MARY is Primary Nurse. hj 15:57 Patient has correct armband on for positive identification. Placed in gown. Bed in low hj position. Call light in reach. Side rails up X 1. satellite project site monitor on. Pulse ox on. NIBP on. 16:03 EKG done, by electrical technician. reviewed by Dale FENTON. sm3 16:09 Patient maintains SpO2 saturation greater than 95% on room air. hj 16:20 No provider procedures requiring assistance completed. Initial lab(s) drawn, by me, hj sent to lab. Inserted saline lock: 22 gauge in right forearm, using aseptic technique. Blood collected. 16:30 XRAY Chest (1 view) In Process Unspecified. EDMS 16:[address] kw1 16:41 CT Head Brain wo Cont In Process Unspecified. EDMS 17:17 IV discontinued, intact, bleeding controlled, No redness/swelling at site. Pressure hj dressing applied. Administered Medications: 16:10 Drug: Aspirin Chewable Tablet 324 mg Route: PO; hj 17:01 Follow up: Response: No adverse reaction hj 16:10 Drug: Reglan 10 mg Route: IVP; Site: left forearm; hj 17:00 Follow up: Response: No adverse reaction hj 16:10 Drug: Benadryl 25 mg Route: IVP; Site: right forearm; hj 17:00 Follow up: Response: No adverse reaction hj 16:49 Drug: Potassium Chloride 20 mEq Route: PO; hj 17:00 Follow up: Response: No adverse reaction Outcome: 17:11 Discharge ordered by . dianna 17:17 Discharged to home ambulatory. 17:17 Condition: stable 17:17 Discharge instructions given to patient, Instructed on discharge instructions, follow up and referral plans. Demonstrated understanding of instructions, follow-up care. 17:18 Patient left the ED. Signatures: Dispatcher [employer] Allegra Johnson, RN Olivia Ferreira Dorifroy, JOSSY Hunter Henry, RN RN hj Wilhelm, Kimberly kw1 Gwen Diaz 3
--- NOTE | 2018-11-08 17:11 | EDPHYS ---
Physician Documentation [facility] Name: Della Cortez Age: 53 yrs Sex: Female : 1965 Arrival Date: 11/08/2018 Time: 15:41 Bed 15 Private MD: out of town, doctor ED Physician Joesph Wood HPI: 11/08 16:05 This 53 yrs old Female presents to ER via Wheelchair with complaints of Chest jr8 Pain, Arm Pain. 16:05 The patient or guardian reports chest pain that is located primarily in the anterior jr8 chest wall, left. Onset: acutely, today, at 03:00. The pain radiates to the left arm. Associated signs and symptoms: Pertinent positives: nausea, shortness of breath. The chest pain is described as a pressure. Duration: The patient or guardian reports a single episode, that is still ongoing, and unchanged. Modifying factors: The symptoms are alleviated by nothing. the symptoms are aggravated by nothing. Severity of pain: At its worst the pain was moderate in the emergency department the pain is unchanged. The patient has not experienced similar symptoms in the past. The patient has not recently seen a physician. Has had headache for the past three days. History of migraines but feels more intense then what she normally has . 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 - Social history:: Smoking status: Patient uses tobacco products, denies chronic smoking, but will smoke occasionally, Patient/guardian denies using alcohol. - Ebola Screening: : No symptoms or risks identified at this time. ROS: 16:05 Eyes: Negative for injury, pain, redness, and discharge, ENT: Negative for injury, jr8 pain, and discharge, Neck: Negative for injury, pain, and swelling, Respiratory: Negative for shortness of breath, cough, wheezing, and pleuritic chest pain, Abdomen/GI: Negative for abdominal pain, nausea, vomiting, diarrhea, and constipation, Back: Negative for injury and pain, MS/Extremity: Negative for injury and deformity, Skin: Negative for injury, rash, and discoloration. 16:05 Cardiovascular: Positive for chest pain, Negative for edema, orthopnea, palpitations, paroxysmal nocturnal dyspnea. 16:05 Neuro: Positive for headache, Negative for altered mental status, dizziness, gait disturbance, hearing loss, loss of consciousness, numbness, seizure activity, speech changes, syncope, near syncope, tingling, tinnitus, tremor, visual changes, weakness. Exam: 16:05 Eyes: Pupils equal round and reactive to light, extra-ocular motions intact. Lids and jr8 lashes normal. Conjunctiva and sclera are non-icteric and not injected. Cornea within normal limits. Periorbital areas with no swelling, redness, or edema. ENT: Nares patent. No nasal discharge, no septal abnormalities noted. Tympanic membranes are normal and external auditory canals are clear. Oropharynx with no redness, swelling, or masses, exudates, or evidence of obstruction, uvula midline. Mucous membranes moist. Neck: Trachea midline, no thyromegaly or masses palpated, and no cervical lymphadenopathy. Supple, full range of motion without nuchal rigidity, or vertebral point tenderness. No Meningismus. Chest/axilla: Normal chest wall appearance and motion. Nontender with no deformity. No lesions are appreciated. Cardiovascular: Regular rate and rhythm with a normal S1 and S2. No gallops, murmurs, or rubs. Normal PMI, no JVD. No pulse deficits. Respiratory: Lungs have equal breath sounds bilaterally, clear to auscultation and percussion. No rales, rhonchi or wheezes noted. No increased work of breathing, no retractions or nasal flaring. Abdomen/GI: Soft, non-tender, with normal bowel sounds. No distension or tympany. No guarding or rebound. No evidence of tenderness throughout. Back: No spinal tenderness. No costovertebral tenderness. Full range of motion. Skin: Warm, dry with normal turgor. Normal color with no rashes, no lesions, and no evidence of cellulitis. MS/ Extremity: Pulses equal, no cyanosis. Neurovascular intact. Full, normal range of motion. Neuro: Awake and alert, GCS 15, oriented to person, place, time, and situation. Cranial nerves II-XII grossly intact. Motor strength 5/5 on right side of body. 4/5 to left hand only. Sensory grossly intact. Cerebellar exam normal. Normal gait. Vital Signs: 15:49 BP 131 / 73; Pulse 68; Resp 20; Pulse Ox 98% ; Weight 86.18 kg; Height 5 ft. 2 in. sv (157.48 cm); 17:11 BP 130 / 74; Pulse 70; Resp 18; Pulse Ox 100% on R/A; hj 15:49 Body Mass Index 34.75 (86.18 kg, 157.48 cm) sv MDM: 15:49 Patient medically screened. jr8 17:09 The patient was given aspirin in the Emergency Department. Data reviewed: vital signs, jr8 nurses notes, lab test result(s), EKG, radiologic studies, CT scan, plain films, and as a result, I will discharge patient. Data interpreted: Pulse oximetry: on room air is 98 %. Interpretation: normal. 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 Response to treatment: the patient's symptoms have markedly improved after treatment. 11/08 16:09 Order name: Basic Metabolic Panel; Complete Time: 16:45 11/08 16:09 Order name: CBC with Diff; Complete Time: 16:39 11/08 16:09 Order name: LFT's; Complete Time: 16:45 8 11/08 16:09 Order name: Magnesium; Complete Time: 16:45 11/08 16:09 Order name: NT PRO-BNP; Complete Time: 16:45 8 11/08 16:09 Order name: PT-INR; Complete Time: 16:39 jr8 11/08 15:49 Order name: EKG; Complete Time: 15:50 sv 11/08 16:09 Order name: Troponin (emerg Dept Use Only); Complete Time: 16:45 11/08 16:09 Order name: XRAY Chest (1 view); Complete Time: 16:55 11/08 16:09 Order name: CT Head Brain wo Cont; Complete Time: 17:09 11/08 15:49 Order name: EKG - Nurse/Tech; Complete Time: 15:50 sv 11/08 16:09 Order name: Cardiac monitoring; Complete Time: 16:10 11/08 16:09 Order name: IV Saline Lock; Complete Time: 16:10 11/08 16:09 Order name: Labs collected and sent; Complete Time: 16:10 11/08 16:09 Order name: O2 Per Protocol; Complete Time: 16:10 11/08 16:09 Order name: O2 Sat Monitoring; Complete Time: 16:10 Administered Medications: 16:10 Drug: Aspirin Chewable Tablet 324 mg Route: PO; hj 17:01 Follow up: Response: No adverse reaction hj 16:10 Drug: Reglan 10 mg Route: IVP; Site: left forearm; hj 17:00 Follow up: Response: No adverse reaction hj 16:10 Drug: Benadryl 25 mg Route: IVP; Site: right forearm; hj 17:00 Follow up: Response: No adverse reaction hj 16:49 Drug: Potassium Chloride 20 mEq Route: PO; hj 17:00 Follow up: Response: No adverse reaction Disposition: 11/08/18 17:11 Discharged to Home. Impression: Migraine, Chest pain, unspecified. - Condition is Stable. - Discharge Instructions: Nonspecific Chest Pain, Migraine Headache, Aspirin and Your Heart. - Medication Reconciliation Form, Thank You Letter, Antibiotic Education, Prescription Opioid Use form. - Work release form (11/10/18 08:56). ms - Follow up: Private Physician; When: 2 - 3 days; Reason: Recheck today's complaints, Continuance of care, Re-evaluation by your physician. - Problem is new. - Symptoms have improved. Addendum: 11/11/2018 05:41 Co-signature as Attending Physician, Joesph Wood MD I agree with the assessment and c hampton plan of care. Signatures: Dispatcher [employer] EDMS Jacinto, Allegra, RN Joesph Mariano MD MD cha Roszak, Josh, PA PA jr8 Jan Ko RN RN Nancy Pierre ms Corrections: (The following items were deleted from the chart) 11/08 17:10 16:05 Onset: acutely, today, jr8 jr8 17:18 17:11 11/08/2018 17:11 Discharged to Home. Impression: Migraine; Chest pain, hj unspecified. Condition is Stable. Forms are Medication Reconciliation Form, Thank You Letter, Antibiotic Education, Prescription Opioid Use. Follow up: Private Physician; When: 2 - 3 days; Reason: Recheck today's complaints, Continuance of care, Re-evaluation by your physician. Problem is new. Symptoms have improved. jr8
[2018-11-08 18:08] VITALS: BP 130/74; O2SAT 100
== END 2018-11-08 17:18 | disposition home or self-care (01) ==
LOC: ER 15:39
DX: G43.909 Migraine, unspecified, not intractable, without status migrainosus (principal); R07.9 Chest pain, unspecified; Z88.1 Allergy status to other antibiotic agents; Z88.0 Allergy status to penicillin; Z79.84 Long term (current) use of oral hypoglycemic drugs; Z79.82 Long term (current) use of aspirin; E11.9 Type 2 diabetes mellitus without complications; Z72.0 Tobacco use
CPT/HCPCS: 36415; 70450; 71045; 80048; 80076; 83735; 83880; 84484; 85025; 85610; 93005; 99285; J2765

== ENCOUNTER 2019-07-08 02:19 | Emergency (ER) | payer SELFPAY ==
[2019-07-08] MEDS ORDERED: NA CHLORIDE 0.9% 1,000 ML ONE (03:18)
[2019-07-08] MEDS ORDERED: MORPHINE 4 MG/ML SYR ONE (03:18)
[2019-07-08] MEDS ORDERED: ONDANSETRON 4 MG/2 ML VIAL ONE (03:19)
[2019-07-08 03:36] LABS: Albumin 3.6 g/dL (3.4-5.0); Bilirubin Direct 0.2 mg/dL (0-0.2); Bilirubin Total 0.3 mg/dL (0.2-1.0); Potassium 3.8 mmol/L (3.5-5.1); Protein, Total 7.1 g/dL (6.4-8.2)
[2019-07-08 03:41] LABS: Absolute Lymphocytes (CBC) 3.4 K/uL (0.7-4.9); Basophils % 0.7 % (0-1.3); Hematocrit 41.3 % (36.0-45.0); Lymphocytes % 46.6 % (15.3-44.8); MPV 10.8 fL (7.6-11.3); RBC Red Blood Cell Count 4.21 M/uL (3.86-4.86)
[2019-07-08 04:08] LABS: Urine Blood NEGATIVE (NEG); Urine Glucose 2+ (NEG); Urine Protein NEGATIVE (NEG); Urine Specific Gravity 1.015 (1.005-1.030)
--- NOTE | 2019-07-08 04:12 | ER ---
Nurse's Notes [facility] Name: Della Cortez Age: 53 yrs Sex: Female : 1965 Arrival Date: 07/08/2019 Time: 02:21 Bed 18 Private MD: Diagnosis: Right flank pain. Elevated liver functions. Uncontrolled diabetes Presentation: 07/08 02:32 Presenting complaint: Patient states: she is having right flank pain since yesterday bb has past hx of kidney stone with lithotripsy and feels like this is similar denies dysuria, denies diarrhea or vomiting has occasional nausea. Transition of care: patient was not received from another setting of care. Onset of symptoms was July 07, 2019. Risk Assessment: Do you want to hurt yourself or someone else? Patient reports no desire to harm self or others. Initial Sepsis Screen: Does the patient meet any 2 criteria? No. Patient's initial sepsis screen is negative. Does the patient have a suspected source of infection? No. Patient's initial sepsis screen is negative. Care prior to arrival: None. 02:32 Method Of Arrival: Ambulatory bb 02:32 Acuity: MURRAY 3 bb Triage Assessment: 02:34 General: Appears uncomfortable, Behavior is calm, cooperative. Pain: Complains of pain bb in right flank Pain currently is 8 out of 10 on a pain scale. Pain began 1 day ago. Neuro: Level of Consciousness is awake, alert, obeys commands, Oriented to person, place, time, situation. Cardiovascular: No deficits noted. Respiratory: Respiratory effort is even, unlabored, Respiratory pattern is regular. GI: No signs and/or symptoms were reported involving the gastrointestinal system. GI: Reports upper abdominal pain. : Denies burning with urination. Derm: Skin is dry, Skin is normal, Skin temperature is warm. Musculoskeletal: Circulation, motion, and sensation intact. 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 - Social history:: Smoking status: Patient uses tobacco products, denies chronic smoking, but will smoke occasionally. - Ebola Screening: : No symptoms or risks identified at this time. Screenin:12 Abuse screen: Denies threats or abuse. Denies injuries from another. Nutritional wh screening: No deficits noted. Tuberculosis screening: No symptoms or risk factors identified. Fall Risk None identified. Assessment: 03:11 General: Appears in no apparent distress. Behavior is calm, cooperative, appropriate wh for age. Pain: Complains of pain in right upper quadrant Pain radiates to back Pain currently is 7 out of 10 on a pain scale. Quality of pain is described as aching, Pain began 1 day ago. Neuro: Level of Consciousness is awake, alert, obeys commands, Oriented to person, place, time, situation, Appropriate for age. Cardiovascular: Heart tones S1 S2. Respiratory: Airway is patent Respiratory effort is even, unlabored, Respiratory pattern is regular, symmetrical. GI: Abdomen is flat, non-distended, Bowel sounds present X 4 quads. Abdomen is tender to palpation in right upper quadrant. : No signs and/or symptoms were reported regarding the genitourinary system. EENT: No signs and/or symptoms were reported regarding the EENT system. Derm: Skin is intact, is healthy with good turgor, Skin is pink, warm \T\ dry. normal. Musculoskeletal: Circulation, motion, and sensation intact. 04:25 Reassessment: Patient appears in no apparent distress at this time. No changes from previously documented assessment. Patient and/or family updated on plan of care and expected duration. Pain level reassessed. Patient is alert, oriented x 3, equal unlabored respirations, skin warm/dry/pink. Patient states feeling better. Patient states symptoms have improved. Vital Signs: 02:34 BP 138 / 60; Pulse 75; Resp 16 S; Temp 98.2(O); Pulse Ox 96% on R/A; Weight 83.91 kg bb (R); Height 5 ft. 2 in. (157.48 cm) (R); Pain 7/10; 04:25 BP 119 / 62; Pulse 59; Resp 18; Pulse Ox 100% on R/A; wh 02:34 Body Mass Index 33.84 (83.91 kg, 157.48 cm) ED Course: 02:21 Patient arrived in ED. ds1 02:33 Triage completed. 02:34 Arm band placed on Patient placed in an exam room, on a stretcher, on pulse oximetry. 02:40 Gal Valdivia MD is Attending Physician. pkmatthias 02:55 Humble Lindsey is Primary Nurse. 03:12 Patient has correct armband on for positive identification. Placed in gown. Bed in low wh position. Call light in reach. Side rails up X 1. Pulse ox on. NIBP on. 03:13 Inserted saline lock: 22 gauge in left antecubital area, using aseptic technique. Blood wh collected. 03:25 CT Stone Protocol In Process Unspecified. EDMS 04:25 No provider procedures requiring assistance completed. IV discontinued, intact, wh bleeding controlled, No redness/swelling at site. Administered Medications: 03:33 Drug: NS 0.9% 1000 ml Route: IV; Rate: 1000 ml; Site: left antecubital; 04:27 Follow up: Response: No adverse reaction; IV Status: Completed infusion 03:33 Drug: morphine 4 mg {Note: RASS 0.} Route: IVP; Site: left antecubital; 04:28 Follow up: Response: No adverse reaction; Pain is decreased; RASS: Alert and Calm (0) 03:33 Drug: Zofran 4 mg Route: IVP; Site: left antecubital; 04:28 Follow up: Response: No adverse reaction; Nausea is decreased Outcome: 04:11 Discharge ordered by . [email or web address] 04:26 Discharged to home ambulatory. 04:26 Condition: good 04:26 Discharge instructions given to patient, Instructed on discharge instructions, follow up and referral plans. no drinking with medication, no driving heavy equipment, medication usage, POC Flank Pain Demonstrated understanding of instructions, follow-up care, medications, POC Prescriptions given X 1. 04:28 Patient left the ED. Signatures: Dispatcher [employer] EDNM Gal Valdivia MD MD pkEvon Grady ds1 Afshan Haywood RN RN Humble Jacob wh
--- NOTE | 2019-07-08 04:13 | EDPHYS ---
Physician Documentation [facility] Name: Della Cortez Age: 53 yrs Sex: Female : 1965 Arrival Date: 07/08/2019 Time: 02:21 Bed 18 Private MD: ED Physician Gal Valdivia HPI: 07/08 02:51 This 53 yrs old Female presents to ER via Ambulatory with complaints of R Side pkl Pain. 02:51 The patient complains of pain in the right flank. The pain does not radiate. Onset: The pkl symptoms/episode began/occurred yesterday. The patient has experienced a previous episode, approximately 7 years ago, Patient had kidney stone and lithotripsy done. Said pain is similar this time. 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 - Social history:: Smoking status: Patient uses tobacco products, denies chronic smoking, but will smoke occasionally. - Ebola Screening: : No symptoms or risks identified at this time. ROS: 02:51 Eyes: Negative for injury, pain, redness, and discharge, ENT: Negative for injury, pkl pain, and discharge, Neck: Negative for injury, pain, and swelling, Cardiovascular: Negative for chest pain, palpitations, and edema, Respiratory: Negative for shortness of breath, cough, wheezing, and pleuritic chest pain, Abdomen/GI: Negative for abdominal pain, nausea, vomiting, diarrhea, and constipation. 02:51 Back: Positive for flank pain, on the right, of the right flank. 02:51 : Negative for urinary symptoms. 02:51 MS/extremity: Negative for acute changes. 02:51 Skin: Negative for rash. 02:51 Neuro: Negative for altered mental status. Exam: 02:51 Head/Face: Normocephalic, atraumatic. Eyes: Pupils equal round and reactive to light, pkl extra-ocular motions intact. Lids and lashes normal. Conjunctiva and sclera are non-icteric and not injected. Cornea within normal limits. Periorbital areas with no swelling, redness, or edema. ENT: Nares patent. No nasal discharge, no septal abnormalities noted. Tympanic membranes are normal and external auditory canals are clear. Oropharynx with no redness, swelling, or masses, exudates, or evidence of obstruction, uvula midline. Mucous membranes moist. Neck: Trachea midline, no thyromegaly or masses palpated, and no cervical lymphadenopathy. Supple, full range of motion without nuchal rigidity, or vertebral point tenderness. No Meningismus. Chest/axilla: Normal chest wall appearance and motion. Nontender with no deformity. No lesions are appreciated. Cardiovascular: Regular rate and rhythm with a normal S1 and S2. No gallops, murmurs, or rubs. Normal PMI, no JVD. No pulse deficits. Respiratory: Lungs have equal breath sounds bilaterally, clear to auscultation and percussion. No rales, rhonchi or wheezes noted. No increased work of breathing, no retractions or nasal flaring. Abdomen/GI: Soft, non-tender, with normal bowel sounds. No distension or tympany. No guarding or rebound. No evidence of tenderness throughout. 02:51 Back: pain, that is moderate, of the right flank. 02:51 : Exam negative for acute changes. 02:51 Musculoskeletal/extremity: Exam is negative for acute changes. 02:51 Skin: Exam negative for rash. 02:51 Neuro: Orientation: is normal, Mentation: is normal, Cranial nerves: grossly normal, Motor: is normal. Vital Signs: 02:34 BP 138 / 60; Pulse 75; Resp 16 S; Temp 98.2(O); Pulse Ox 96% on R/A; Weight 83.91 kg bb (R); Height 5 ft. 2 in. (157.48 cm) (R); Pain 7/10; 04:25 BP 119 / 62; Pulse 59; Resp 18; Pulse Ox 100% on R/A; wh 02:34 Body Mass Index 33.84 (83.91 kg, 157.48 cm) bb MDM: 02:40 Patient medically screened. pkl 04:05 Data reviewed: vital signs, nurses notes, lab test result(s), radiologic studies, CT pkl scan. ED course: Patient feeling better. Discussed lab. and CT scan results with patient. Advised to follow with Dr. Tavera ( Urology ) for her right flank pain and Dr. Cota ( [facility] ) for her elevated liver functions Patient understood instructions. 07/08 02:48 Order name: Urine Dipstick--Ancillary (enter results); Complete Time: 04:13 mw2 07/08 02:48 Order name: Basic Metabolic Panel; Complete Time: 03:52 pkl 07/08 02:48 Order name: CBC with Diff; Complete Time: 03:52 pkl 07/08 02:48 Order name: Creatinine for Radiology; Complete Time: 03:52 pkl 07/08 02:48 Order name: Hepatic Function; Complete Time: 03:52 pkl 07/08 02:48 Order name: Lipase; Complete Time: 03:52 pkl 07/08 02:48 Order name: IV Saline Lock; Complete Time: 03:10 pkl 07/08 02:48 Order name: Labs collected and sent; Complete Time: 03:10 pkl 07/08 02:57 Order name: CT Stone Protocol pkl Administered Medications: 03:33 Drug: NS 0.9% 1000 ml Route: IV; Rate: 1000 ml; Site: left antecubital; 04:27 Follow up: Response: No adverse reaction; IV Status: Completed infusion 03:33 Drug: morphine 4 mg {Note: RASS 0.} Route: IVP; Site: left antecubital; 04:28 Follow up: Response: No adverse reaction; Pain is decreased; RASS: Alert and Calm (0) 03:33 Drug: Zofran 4 mg Route: IVP; Site: left antecubital; 04:28 Follow up: Response: No adverse reaction; Nausea is decreased Disposition: 07/08/19 04:11 Discharged to Home. Impression: Right flank pain. Elevated liver functions. Uncontrolled diabetes. - Condition is Stable. - Prescriptions for Ultram 50 mg Oral Tablet - take 1 tablet by ORAL route every 8-12 hours As needed; 12 tablet. - Medication Reconciliation Form, Thank You Letter, Antibiotic Education, Prescription Opioid Use form. - Follow up: Private Physician; When: 2 - 3 days; Reason: Re-evaluation by your physician. - Problem is new. - Symptoms have improved. Signatures: Dispatcher [employer] EDMS Gal Valdivia MD MD pkl Afshan Haywood, RN RN Humble Jacob Corrections: (The following items were deleted from the chart) 04:28 04:11 07/08/2019 04:11 Discharged to Home. Impression: Right flank pain. Elevated liver wh functions. Uncontrolled diabetes. Condition is Stable. Forms are Medication Reconciliation Form, Thank You Letter, Antibiotic Education, Prescription Opioid Use. Follow up: Private Physician; When: 2 - 3 days; Reason: Re-evaluation by your physician. Problem is new. Symptoms have improved. pkl
[2019-07-08 05:03] VITALS: TEMP 98.2
[2019-07-08 05:04] VITALS: BP 119/62; O2SAT 100
--- NOTE | 2019-07-08 10:07 | RAD REPORT ---
EXAM DESCRIPTION: CT ABDOMEN AND PELVIS WITHOUT CONTRAST CLINICAL HISTORY: Right flank pain. COMPARISON: None. TECHNIQUE: Axial unenhanced CT imaging of the abdomen and pelvis performed. Reformatted coronal and sagittal images reviewed. A dose reduction technique was utilized with automated exposure control according to patient size. FINDINGS: There are several calcified nodules within the left lower lobe up to 7 mm consistent with granulomas. Heart is normal in size. Numerous left hilar calcified lymph nodes are also present. Normal liver. Gallbladder has been resected. Normal spleen, pancreas, adrenal glands. There are a sev eral bilateral nonobstructing renal calculi. The largest is in the left renal pelvis, 4 mm. There is no hydronephrosis. There is no renal mass. Normal caliber aorta and inferior vena cava. No adenopathy . Normal stomach, small bowel loops. Mild sigmoid colon diverticulosis without diverticulitis. Appendix has been resected. No mesenteric adenopathy. No ascites or free air. Normal bladder without stone or adjacent edema.. Uterus is retroverted. Tubal ligation clips are pres ent bilaterally. No pelvic free fluid or adenopathy. L3-4 disc calcifications noted. Normal lumbar alignment. Intact bony pelvis. Normal hips. IMPRESSION: 1. Nonobstructing bilateral renal calculi up to 4 mm. No hydronephrosis. No bladder ston e. 2. Mild sigmoid colon diverticulosis without diverticulitis.. Electronically signed by: Naomi Reynolds DO 07/08/2019 3:37 AM CDT Due to temporary technical issues with the PACS/Fluency reporting system, reports are being signed by the in house radiologist as a courtesy to ensure prompt reporting. The interpreting radiologist is f alexisly responsible for the content of the report.
== END 2019-07-08 04:28 | disposition home or self-care (01) ==
LOC: ER 02:19
DX: R79.89 Other specified abnormal findings of blood chemistry (principal); E11.65 Type 2 diabetes mellitus with hyperglycemia; Z87.442 Personal history of urinary calculi; Z79.82 Long term (current) use of aspirin; Z88.0 Allergy status to penicillin; Z88.1 Allergy status to other antibiotic agents
CPT/HCPCS: 36415; 74176; 76377; 80048; 80076; 81003; 83690; 85025; 96361; 96374; 96375; 99284; J2405; J7030

== ENCOUNTER 2019-07-14 00:02 | Emergency (ER) | payer SELFPAY ==
[2019-07-14] MEDS ORDERED: MORPHINE 4 MG/ML SYR ONE (01:17)
[2019-07-14] MEDS ORDERED: ONDANSETRON 4 MG/2 ML VIAL ONE (01:17)
[2019-07-14 01:20] LABS: Absolute Lymphocytes (CBC) 3.5 K/uL (0.7-4.9); Basophils % 1.3 % (0-1.3); Hematocrit 45.5 % (36.0-45.0); Lymphocytes % 35.8 % (15.3-44.8); MPV 10.3 fL (7.6-11.3); RBC Red Blood Cell Count 4.67 M/uL (3.86-4.86)
[2019-07-14 01:21] LABS: Urine Blood NEGATIVE (NEG); Urine Glucose TRACE (NEG); Urine Protein NEGATIVE (NEG)
[2019-07-14 01:32] LABS: Potassium 3.9 mmol/L (3.5-5.1)
[2019-07-14] MEDS ORDERED: FENTANYL CITR 100 MCG/2 ML ONE (02:18)
--- NOTE | 2019-07-14 03:11 | EDPHYS ---
Physician Documentation [facility] Name: Della Cortez Age: 53 yrs Sex: Female : 1965 Arrival Date: 07/14/2019 Time: 00:05 Bed 18 Private MD: ED Physician Joesph Wood HPI: 07/14 01:42 This 53 yrs old Female presents to ER via Ambulatory with complaints of jr8 Possible Kidney Stone. 01:52 The patient presents with abdominal pain right lower quadrant. Onset: The jr8 symptoms/episode began/occurred gradually, 6 day(s) ago. The symptoms radiate to right back. Associated signs and symptoms: none. The symptoms are described as stabbing. Modifying factors: The symptoms are alleviated by nothing, the symptoms are aggravated by nothing. Severity of pain: At its worst the pain was moderate in the emergency department the pain is unchanged. The patient has experienced a previous episode. The patient has been recently seen by a physician: The patient has been recently seen at the [facility] Emergency Department, this week, for similar complaints labs were performed, CT scan was performed. Patient was diagnosed with non obstructive stone in ED 6 days ago. Came back today for worsening of pain. 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 - Social history:: Smoking status: Patient uses tobacco products, 3 cigarettes per week. - Ebola Screening: : Patient denies travel to an Ebola-affected area in the 21 days before illness onset. ROS: 01:52 Eyes: Negative for injury, pain, redness, and discharge, ENT: Negative for injury, jr8 pain, and discharge, Neck: Negative for injury, pain, and swelling, Cardiovascular: Negative for chest pain, palpitations, and edema, Respiratory: Negative for shortness of breath, cough, wheezing, and pleuritic chest pain, Back: Negative for injury and pain, MS/Extremity: Negative for injury and deformity, Skin: Negative for injury, rash, and discoloration, Neuro: Negative for headache, weakness, numbness, tingling, and seizure. 01:52 Abdomen/GI: Positive for abdominal pain, Negative for nausea, vomiting, and diarrhea, abdominal cramps, abdominal distension, anorexia, dysphagia, hematemesis, black/tarry stool, rectal pain, rectal bleeding, bowel incontinence, flatulence. Exam: 01:52 Eyes: Pupils equal round and reactive to light, extra-ocular motions intact. Lids and jr8 lashes normal. Conjunctiva and sclera are non-icteric and not injected. Cornea within normal limits. Periorbital areas with no swelling, redness, or edema. ENT: Nares patent. No nasal discharge, no septal abnormalities noted. Tympanic membranes are normal and external auditory canals are clear. Oropharynx with no redness, swelling, or masses, exudates, or evidence of obstruction, uvula midline. Mucous membranes moist. Neck: Trachea midline, no thyromegaly or masses palpated, and no cervical lymphadenopathy. Supple, full range of motion without nuchal rigidity, or vertebral point tenderness. No Meningismus. Cardiovascular: Regular rate and rhythm with a normal S1 and S2. No gallops, murmurs, or rubs. Normal PMI, no JVD. No pulse deficits. Respiratory: Lungs have equal breath sounds bilaterally, clear to auscultation and percussion. No rales, rhonchi or wheezes noted. No increased work of breathing, no retractions or nasal flaring. Back: No spinal tenderness. No costovertebral tenderness. Full range of motion. Skin: Warm, dry with normal turgor. Normal color with no rashes, no lesions, and no evidence of cellulitis. MS/ Extremity: Pulses equal, no cyanosis. Neurovascular intact. Full, normal range of motion. Neuro: Awake and alert, GCS 15, oriented to person, place, time, and situation. Cranial nerves II-XII grossly intact. Motor strength 5/5 in all extremities. Sensory grossly intact. Cerebellar exam normal. Normal gait. 01:52 Abdomen/GI: Inspection: abdomen appears normal, Bowel sounds: active, all quadrants, Palpation: soft, in all quadrants, moderate abdominal tenderness, in the right lower quadrant, mass, is not appreciated, rebound tenderness, is not appreciated, voluntary guarding, is not appreciated, involuntary guarding, is not appreciated, no appreciated organomegaly, Indicators: McBurney's point is not tender, Fitzpatrick's sign is negative, Rovsing's sign is negative, Liver: tenderness, is not appreciated. Vital Signs: 00:09 BP 141 / 64; Pulse 75; Resp 18; Temp 97.8(TE); Pulse Ox 100% on R/A; Weight 83.91 kg aj1 (R); Height 5 ft. 2 in. (157.48 cm) (R); Pain 9/10; 01:28 BP 121 / 71; Pulse 73; Resp 14; Pulse Ox 100% on R/A; ak1 02:23 BP 138 / 74; Pulse 71; Resp 16; Temp 98; Pulse Ox 99% on R/A; Pain 8/10; ak1 03:18 BP 114 / 73; Pulse 66; Resp 16; Pulse Ox 99% on R/A; ak1 00:09 Body Mass Index 33.84 (83.91 kg, 157.48 cm) aj1 MDM: 00:45 Patient medically screened. jr8 03:09 Data reviewed: vital signs, nurses notes, old medical records, lab test result(s), 8 radiologic studies, and as a result, I will discharge patient. Data interpreted: Pulse oximetry: is not applicable for this patient encounter. on room air is 99 %. Interpretation: normal. Counseling: I had a detailed discussion with the patient and/or guardian regarding: the historical points, exam findings, and any diagnostic results supporting the discharge/admit diagnosis, lab results, radiology results. ED course: Pain secondary likely to dermoid cyst no other emergent pathology identified, recommend FILLER IN FU. 07/14 00:45 Order name: CBC with Diff; Complete Time: jr8 07/14 00:45 Order name: Basic Metabolic Panel; Complete Time: jr8 07/14 00:53 Order name: CT Abd/Pelvis - IV Contrast Only jr8 07/14 01:18 Order name: Urine Dipstick--Ancillary (enter results); Complete Time: : [facility] 07/14 00:45 Order name: Urine Dipstick-Ancillary (obtain specimen); Complete Time: 01:06 jr8 Administered Medications: 01:28 Drug: morphine 4 mg Route: IVP; Site: left forearm; ak1 03:40 Follow up: Response: No adverse reaction ak1 01:28 Drug: Zofran 4 mg Route: IVP; Site: left forearm; ak1 03:40 Follow up: Response: No adverse reaction ak1 02:23 Drug: fentaNYL (PF) 50 mcg Route: IVP; Site: left forearm; ak1 03:40 Follow up: Response: No adverse reaction ak1 Disposition: 08:35 Co-signature as Attending Physician, Joesph Wood MD I agree with the assessment and darline plan of care. Disposition: 07/14/19 03:11 Discharged to Home. Impression: Unspecified abdominal pain. - Condition is Stable. - Discharge Instructions: Abdominal Pain, Adult, Abdominal Pain, Adult, [id number]. - Medication Reconciliation Form, Thank You Letter, Work release form form. - Follow up: Private Physician; When: 2 - 3 days; Reason: Recheck today's complaints, Re-evaluation by your physician. - Problem is new. - Symptoms have improved. Signatures: Dispatcher [employer] Marcia Musa RN RN aj1 Joesph Wood MD MD cha Roszak, Josh, PA PA jr8 Madison Calhoun RN RN ak1 Corrections: (The following items were deleted from the chart) 02:23 00:21 Stone Protocol+CT.RAD.BRZ ordered. EDNY EDNY 03:45 03:11 07/14/2019 03:11 Discharged to Home. Impression: Unspecified abdominal pain. ak1 Condition is Stable. Forms are Medication Reconciliation Form, Thank You Letter, Antibiotic Education, Prescription Opioid Use. Follow up: Private Physician; When: 2 - 3 days; Reason: Recheck today's complaints, Re-evaluation by your physician. Problem is new. Symptoms have improved. jr8
--- NOTE | 2019-07-14 03:11 | ER ---
Nurse's Notes [facility] Name: Della Cortez Age: 53 yrs Sex: Female : 1965 Arrival Date: 07/14/2019 Time: 00:05 Bed 18 Private MD: Diagnosis: Unspecified abdominal pain Presentation: 07/14 00:07 Presenting complaint: Patient states: "I have kidney stones on the right side that is aj1 really really hurting me" Patient reports that she was diagnosed with kidney stones 2 days ago and told the stones were small enough to pass, but her pain is worse today. Reports nausea. Denies vomiting, fever. Transition of care: patient was not received from another setting of care. Onset of symptoms was July 14, 2019. Risk Assessment: Do you want to hurt yourself or someone else? Patient reports no desire to harm self or others. Initial Sepsis Screen: Does the patient meet any 2 criteria? No. Patient's initial sepsis screen is negative. Does the patient have a suspected source of infection? No. Patient's initial sepsis screen is negative. Care prior to arrival: None. 00:07 Method Of Arrival: Ambulatory aj1 00:07 Acuity: MURRAY 3 aj1 Triage Assessment: 00:09 General: Appears in no apparent distress. uncomfortable, Behavior is calm, cooperative, aj1 appropriate for age. Pain: Pain. Pain: Pain currently is 9 out of 10 on a pain scale. Neuro: Level of Consciousness is awake, alert, obeys commands, Oriented to person, place, time, situation. Cardiovascular: Patient's skin is warm and dry. Respiratory: Airway is patent Respiratory effort is even, unlabored, Respiratory pattern is regular, symmetrical. GI: Reports nausea. 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 - Social history:: Smoking status: Patient uses tobacco products, 3 cigarettes per week. - Ebola Screening: : Patient denies travel to an Ebola-affected area in the 21 days before illness onset. Screenin:29 Abuse screen: Denies threats or abuse. Denies injuries from another. Nutritional ak1 screening: No deficits noted. Tuberculosis screening: No symptoms or risk factors identified. Fall Risk None identified. Assessment: 01:29 General: Appears in no apparent distress. Behavior is calm, cooperative. Pain: ak1 Complains of pain in right upper quadrant and right lower quadrant. Neuro: No deficits noted. Cardiovascular: No deficits noted. Respiratory: No deficits noted. GI: Bowel sounds present X 4 quads. Abd is soft X 4 quads Abdomen is tender to palpation in right upper quadrant and right lower quadrant. : No signs and/or symptoms were reported regarding the genitourinary system. EENT: No signs and/or symptoms were reported regarding the EENT system. Derm: No signs and/or symptoms reported regarding the dermatologic system. Musculoskeletal: No signs and/or symptoms reported regarding the musculoskeletal system. 02:10 Reassessment: pt returned from CT. ak1 02:23 Reassessment: pt c/o increased pain to right lower abd "where my ovary is" Dale FENTON ak1 notified. 03:18 Reassessment: Patient appears in no apparent distress at this time. Patient and/or ak1 family updated on plan of care and expected duration. Pain level reassessed. Patient is alert, oriented x 3, equal unlabored respirations, skin warm/dry/pink. Vital Signs: 00:09 BP 141 / 64; Pulse 75; Resp 18; Temp 97.8(TE); Pulse Ox 100% on R/A; Weight 83.91 kg aj1 (R); Height 5 ft. 2 in. (157.48 cm) (R); Pain 9/10; 01:28 BP 121 / 71; Pulse 73; Resp 14; Pulse Ox 100% on R/A; ak1 02:23 BP 138 / 74; Pulse 71; Resp 16; Temp 98; Pulse Ox 99% on R/A; Pain 8/10; ak1 03:18 BP 114 / 73; Pulse 66; Resp 16; Pulse Ox 99% on R/A; ak1 00:09 Body Mass Index 33.84 (83.91 kg, 157.48 cm) aj1 ED Course: 00:05 Patient arrived in ED. ds1 00:08 Triage completed. aj1 00:09 Arm band placed on Patient placed in waiting room, Patient notified of wait time. aj1 00:41 Madison Calhoun RN is Primary Nurse. ak1 00:45 Dale Avendano PA is PHCP. jr8 00:45 Joesph Wood MD is Attending Physician. jr8 01:18 Inserted saline lock: 22 gauge in left forearm, using aseptic technique. Blood ds4 collected. 01:19 Inserted Missed attempt(s): 22 gauge in left antecubital area. Bleeding controlled, ds4 band aid applied, catheter tip intact. 01:29 Patient has correct armband on for positive identification. Bed in low position. Call ak1 light in reach. Side rails up X 1. Pulse ox on. NIBP on. 02:22 CT Abd/Pelvis - IV Contrast Only In Process Unspecified. EDMS 03:19 No provider procedures requiring assistance completed. ak1 03:45 IV discontinued, intact, bleeding controlled, No redness/swelling at site. Pressure ak1 dressing applied. Administered Medications: 01:28 Drug: morphine 4 mg Route: IVP; Site: left forearm; ak1 03:40 Follow up: Response: No adverse reaction ak1 01:28 Drug: Zofran 4 mg Route: IVP; Site: left forearm; ak1 03:40 Follow up: Response: No adverse reaction ak1 02:23 Drug: fentaNYL (PF) 50 mcg Route: IVP; Site: left forearm; ak1 03:40 Follow up: Response: No adverse reaction ak1 Outcome: 03:11 Discharge ordered by . dianna 03:45 Discharged to home ambulatory, with friend. ak1 03:45 Condition: good 03:45 Discharge instructions given to patient, Instructed on discharge instructions, follow up and referral plans. Demonstrated understanding of instructions, follow-up care. 03:45 Patient left the ED. ak1 Signatures: Dispatcher [employer] EDMS Marcia Martinez RN RN aj1 Evon Syed ds1 Dale Avendano PA PA jr8 Cale Wolf ds4 Krenek, Madison, RN RN ak1
[2019-07-14 04:09] VITALS: TEMP 98; O2SAT 99
[2019-07-14 04:10] VITALS: BP 114/73
--- NOTE | 2019-07-14 10:37 | RAD REPORT ---
EXAM DESCRIPTION: CT - Abdomen Pelvis W Contrast - 07/14/2019 5:32 am CLINICAL HISTORY: ABD PAIN TECHNIQUE: Contiguous axial images obtained through the abdomen and pelvis following the uneventful administration of IV contrast. Coronal and sagittal reformatted images were provided. This exam was performed according to our departmental dose-optimization program, which includes autom ated exposure control, adjustment of the mA and/or kV according to patient size and/or use of iterati ve reconstruction technique. COMPARISON: 07/08/2019 FINDINGS: Lung bases: Left basilar calcified granuloma and calcified left hilar lymph nodes. Liver: The liver is mildly enlarged. Gallbladder and biliary system: Prior cholecystectomy. Pancreas: Unremarkable Spleen: Unremarkable Adrenals: Unremarkable Kidneys: Normal renal cortical enhancement. Subcentimeter right renal cortical hypodensity which is t oo small to characterize. Small bilateral renal calculi. Subtle urothelial thickening on the left. No hydronephrosis. Bowel: Diverticulosis report No obstruction. No appreciable mucosal thickening. Appendix: The appendix not visualized Urinary bladder: Mild circumferential urinary bladder wall thickening. Reproductive: 4.4 x 3.2 x 2.6 cm heterogeneous right adnexal lesion with macroscopic fat compatible w ith a dermoid. The uterus and left ovary are unremarkable as visualized. Lymph nodes: No pathologically enlarged lymph nodes. Peritoneum: No focal fluid collection. No free air. Vessels: Mild atherosclerotic disease. No abdominal aortic aneurysm. Abdominal wall: Tiny fat-containing umbilical hernia. Bones: Multilevel spondylosis. No acute fracture. IMPRESSION: 1. Bilateral nonobstructive renal calculi. 2. Subtle urothelial thickening on the left. Mild circumferential urinary bladder wall thickening. Please correlate clinically for urinary tract infection/cystitis. 3. 4.4 cm right ovarian dermoid cyst. Recommend pelvic MRI w/IV contrast. If not surgically resecte d, pelvic US follow-up annually. Reference: J Am Tara Radiol 2013;10:[id number] 4. Other findings as above. Electronically signed by: Hannah Kessler MD 07/14/2019 2:51 AM CDT Due to temporary technical issues with the PACS/Fluency reporting system, reports are being signed by the in house radiologist as a courtesy to ensure prompt reporting. The interpreting radiologist is f ully responsible for the content of the report.
== END 2019-07-14 03:45 | disposition home or self-care (01) ==
LOC: ER 00:02
DX: R10.31 Right lower quadrant pain (principal); E11.9 Type 2 diabetes mellitus without complications; Z87.442 Personal history of urinary calculi; Z72.0 Tobacco use; Z79.82 Long term (current) use of aspirin; Z88.0 Allergy status to penicillin; Z88.1 Allergy status to other antibiotic agents
CPT/HCPCS: 36415; 74177; 80048; 81003; 85025; 96374; 96375; 99284; J2405; J3010; Q9967

== ENCOUNTER 2019-10-26 18:21 | Emergency (ER) | payer SELFPAY ==
[2019-10-26] MEDS ORDERED: ONDANSETRON 4 MG/2 ML VIAL ONE (18:58)
[2019-10-26] MEDS ORDERED: MORPHINE 4 MG/ML SYR ONE (18:58)
[2019-10-26 19:02] LABS: Absolute Lymphocytes (CBC) 4.2 K/uL (0.7-4.9); Basophils % 1.3 % (0-1.3); Hematocrit 44.3 % (36.0-45.0); Lymphocytes % 53.5 % (15.3-44.8); MPV 10.1 fL (7.6-11.3); RBC Red Blood Cell Count 4.46 M/uL (3.86-4.86)
[2019-10-26 19:18] LABS: ALT/SGPT 74 U/L (12-78); AST/SGOT 56 U/L (15-37); Albumin 3.5 g/dL (3.4-5.0); Alkaline Phosphatase 156 U/L (45-117); BUN Blood Urea Nitrogen 15 mg/dL (7-18); Bicarbonate 26 mmol/L (21-32); Bilirubin Direct < 0.1 mg/dL (0-0.2); Bilirubin Total 0.3 mg/dL (0.2-1.0); Glucose Level 243 mg/dL (74-106); Lipase 234 U/L (73-393); Protein, Total 7.4 g/dL (6.4-8.2); Sodium Level 139 mmol/L (136-145)
[2019-10-26] MEDS ORDERED: FENTANYL CITR 100 MCG/2 ML ONE (19:42)
[2019-10-26 19:58] LABS: Blood Morphology Comment NOT SEEN (NOT SEEN); Platelet Estimate ADEQ
[2019-10-26 20:06] LABS: Urine Blood NEGATIVE (NEG); Urine Glucose 1+ (NEG); Urine Protein NEGATIVE (NEG); Urine Specific Gravity 1.025 (1.005-1.030)
--- NOTE | 2019-10-26 20:26 | RAD REPORT ---
EXAM DESCRIPTION: CT - Abdomen Pelvis W Contrast - 10/26/2019 8:07 pm CLINICAL HISTORY: ABD PAIN COMPARISON: CT study July 14, 2019 TECHNIQUE: Biphasic, helical CT imaging of the abdomen and pelvis was performed following 100 ml non -ionic IV contrast. Oral contrast was given. All CT scans are performed using dose optimization technique as appropriate and may include automated exposure control or mA/KV adjustment according to patient size. FINDINGS: No suspicious findings in the lung bases. Liver shows fatty infiltration with no focal lesion. Spleen and pancreas no suspicious findings appea r cholecystectomy clips are present. No biliary tree dilatation. Symmetric renal function is seen with no hydronephrosis or suspicious renal mass. Nonobstructing elio l calculi noted. No pyelonephritis or acute parenchymal process. No bladder abnormalities. No adrenal abnormalities. Uterus and ovaries show no suspicious findings. No dilated bowel loops or bowel wall thickening. No acute bowel finding identified. No free air, free fluid or inflammatory stranding. No hernia, mass or bulky lymphadenopathy. No suspicious bony findings. IMPRESSION: Contrast enhanced CT abdomen and pelvis showing no significant or suspicious finding. No significant change from comparison.
[2019-10-26] MEDS ORDERED: DIAZEPAM 10 MG/2 ML INJ SYRINGE ONE (20:42)
--- NOTE | 2019-10-26 21:17 | EDPHYS ---
Physician Documentation [facility] Name: Della Cortez Age: 54 yrs Sex: Female : 1965 Arrival Date: 10/26/2019 Time: 18:24 Bed 20 Private MD: ED Physician Joesph Wood HPI: 10/26 18:46 This 54 yrs old Female presents to ER via Ambulatory with complaints of jmm Abdominal Pain. 18:46 The patient presents with abdominal pain left groin. Onset: The symptoms/episode jmm began/occurred gradually, 1 day(s) ago. The symptoms radiate to left leg. The symptoms are described as sharp. Modifying factors: The symptoms are alleviated by nothing, the symptoms are aggravated by movement. This is a 54 year old female with a history of dm, that presents to the ED with complaints of left groin pain which radiates down her left thigh beginning last night. Patient denies strenuous activity but states she worked a 12 hour shift yesterday. Denies fever, vomiting, back pain. . Historical: - Allergies: 18:29 Levaquin; aj1 18:29 PENICILLINS; aj1 - Home Meds: 18:29 aspirin 81 mg Oral chew 1 tab once daily [Active]; metformin 500 mg Oral tab 2 times aj1 per day [Active]; gabapentin 300 mg Oral cap 1 cap 3 times per day [Active]; Topamax Oral as needed [Active]; Tramadol Oral [Active]; - PMHx: 18:29 Arthritis; Diabetes - NIDDM; Kidney stones; Migraines; Vertigo; aj1 - Immunization history:: Flu vaccine is not up to date. - Coronavirus screen:: The patient has NOT traveled to [place], [place], or [place] in the past 14 days. - Social history:: Smoking status: Patient reports the use of cigarette tobacco products, 3 cigarettes per day. - Ebola Screening: : Patient denies travel to an Ebola-affected area in the 21 days before illness onset. ROS: 18:46 Constitutional: Negative for fever, chills, and weight loss, Cardiovascular: Negative jmm for chest pain, palpitations, and edema, Respiratory: Negative for shortness of breath, cough, wheezing, and pleuritic chest pain. 18:46 Abdomen/GI: Positive for abdominal pain. 18:46 MS/extremity: Positive for pain. 18:46 All other systems are negative. Exam: 18:46 Constitutional: This is a well developed, well nourished patient who is awake, alert, jmm and in no acute distress. Head/Face: atraumatic. Eyes: EOMI, no conjunctival erythema appreciated ENT: Moist Mucus Membranes Neck: Trachea midline, Supple Chest/axilla: Normal chest wall appearance and motion. Cardiovascular: Regular rate and rhythm. No edema appreciated Respiratory: Normal respirations, no respiratory distress appreciated Abdomen/GI: Non distended, soft 18:46 Musculoskeletal/extremity: left groin pain on palpation, pain is elicited on flexion of the left hip. 18:46 Skin: Appearance: Color: normal in color. 18:46 Neuro: Orientation: is normal, Mentation: is normal, Memory: is normal. 18:46 Psych: Behavior/mood is pleasant, cooperative. Vital Signs: 18:29 BP 127 / 78; Pulse 63; Resp 16; Temp 97.6; Pulse Ox 98% on R/A; Weight 83.91 kg (R); aj1 Height 5 ft. 2 in. (157.48 cm) (R); Pain 8/10; 19:34 BP 129 / 77; Pulse 62; Resp 18; Pulse Ox 99% on R/A; Pain 9/10; fu 20:40 BP 127 / 66; Pulse 64; Pulse Ox 98% on R/A; fu 21:00 BP 115 / 48; Pulse 66; Pulse Ox 100% ; fu 21:15 BP 107 / 71; Pulse 63; Resp 16; Pulse Ox 98% on R/A; Pain 3/10; fu 18:29 Body Mass Index 33.84 (83.91 kg, 157.48 cm) aj MDM: 18:43 Patient medically screened. [facility] 21:15 Data reviewed: vital signs, nurses notes. Counseling: I had a detailed discussion with [facility] the patient and/or guardian regarding: the historical points, exam findings, and any diagnostic results supporting the discharge/admit diagnosis, lab results, radiology results, the need for outpatient follow up, to return to the emergency department if symptoms worsen or persist or if there are any questions or concerns that arise at home. ED course: Pain partially relieved in the ED. Pain most likely MS. Patient is advised to follow up with pcp/ortho. Patient otherwise given strict return precautions. patient understood and agrees with the plan of care. . 10/26 18:41 Order name: Urine Dipstick--Ancillary (enter results); Complete Time: 20:21 ms 10/26 18:44 Order name: Basic Metabolic Panel; Complete Time: 19:26 [facility] 10/26 18:44 Order name: CBC with Diff; Complete Time: 20:01 [facility] 10/26 18:44 Order name: Creatinine for Radiology; Complete Time: 19:26 [facility] 10/26 18:44 Order name: Hepatic Function; Complete Time: 19:26 [facility] 10/26 18:44 Order name: Lipase; Complete Time: 19:26 [facility] 10/26 18:44 Order name: IV Saline Lock; Complete Time: 18:54 [facility] 10/26 18:44 Order name: Labs collected and sent; Complete Time: 18:54 [facility] 10/26 18:45 Order name: CT Abd/Pelvis - IV Contrast Only; Complete Time: 20:28 [facility] 10/26 19:05 Order name: Manual Differential; Complete Time: 20:01 EDMS Administered Medications: 19:00 Drug: Zofran 4 mg Route: IVP; Site: left antecubital; sv 19:02 Drug: morphine 1 mg {Note: Pt stated for me to stop giving her the rest of the sv medication because she could feel it making her feel weird..} Route: IVP; Site: left antecubital; 19:48 Drug: fentaNYL (PF) 50 mcg Route: IVP; Site: left antecubital; fu 21:42 Drug: Valium 5 mg Route: IVP; Site: left antecubital; fu Disposition: 10/27 06:59 Co-signature as Attending Physician, Joesph Wood MD I agree with the assessment and darline plan of care. Disposition: 10/26/19 21:16 Discharged to Home. Impression: Strain of adductor muscle, fascia and tendon of left thigh. - Condition is Stable. - Discharge Instructions: Adductor Muscle Strain. - Prescriptions for Zanaflex 4 mg Oral Tablet - take 1 tablet by ORAL route every 8 hours As needed; 20 tablet. - Medication Reconciliation Form, Thank You Letter, Antibiotic Education, Prescription Opioid Use, Work release form form. - Follow up: Private Physician; When: 2 - 3 days; Reason: Recheck today's complaints, Continuance of care, Re-evaluation by your physician. Signatures: Dispatcher [employer] EDMarcia Elias RN RN ajAllegra Solis RN Joesph Mariano MD MD cha Mickail, Joel, PA PA jmm Ballard, Brenda, RN RN bb Umadhay, Felix, RN RN fu Corrections: (The following items were deleted from the chart) 10/26 21:18 21:16 10/26/2019 21:16 Discharged to Home. Impression: Groin Pain. Condition is Stable. [facility] Forms are Medication Reconciliation Form, Thank You Letter, Antibiotic Education, Prescription Opioid Use. Follow up: Private Physician; When: 2 - 3 days; Reason: Recheck today's complaints, Continuance of care, Re-evaluation by your physician. daniel 22:10 21:18 10/26/2019 21:16 Discharged to Home. Impression: Strain of adductor muscle, fu fascia and tendon of left thigh. Condition is Stable. Discharge Instructions: Adductor Muscle Strain. Prescriptions for Zanaflex 4 mg Oral Tablet - take 1 tablet by ORAL route every 8 hours As needed; 20 tablet. and Forms are Medication Reconciliation Form, Thank You Letter, Antibiotic Education, Prescription Opioid Use. Follow up: Private Physician; When: 2 - 3 days; Reason: Recheck today's complaints, Continuance of care, Re-evaluation by your physician. daniel
--- NOTE | 2019-10-26 21:17 | ER ---
Nurse's Notes [facility] Name: Della Cortez Age: 54 yrs Sex: Female : 1965 Arrival Date: 10/26/2019 Time: 18:24 Bed 20 Private MD: Diagnosis: Strain of adductor muscle, fascia and tendon of left thigh Presentation: 10/26 18:27 Presenting complaint: Patient states: Left pelvic pain that radiates down her left leg aj1 since yesterday. Patient states that she took some ibuprofen and gabapentin last night before bed and it was gone when she woke up, but after getting up and walking around the pain is back. Transition of care: patient was not received from another setting of care. Onset of symptoms was October 2019. Risk Assessment: Do you want to hurt yourself or someone else? Patient reports no desire to harm self or others. Initial Sepsis Screen: Does the patient meet any 2 criteria? No. Patient's initial sepsis screen is negative. Does the patient have a suspected source of infection? No. Patient's initial sepsis screen is negative. Care prior to arrival: None. 18:27 Method Of Arrival: Ambulatory aj1 18:27 Acuity: MURRAY 3 aj1 Triage Assessment: 18:29 General: Appears in no apparent distress. comfortable, Behavior is calm, cooperative, aj1 appropriate for age. Pain: Pain currently is 8 out of 10 on a pain scale. Neuro: Level of Consciousness is awake, alert, obeys commands. Cardiovascular: Patient's skin is warm and dry. Respiratory: Airway is patent Respiratory effort is even, unlabored, Respiratory pattern is regular, symmetrical. Historical: - Allergies: 18:29 Levaquin; aj1 18:29 PENICILLINS; aj1 - Home Meds: 18:29 aspirin 81 mg Oral chew 1 tab once daily [Active]; metformin 500 mg Oral tab 2 times aj1 per day [Active]; gabapentin 300 mg Oral cap 1 cap 3 times per day [Active]; Topamax Oral as needed [Active]; Tramadol Oral [Active]; - PMHx: 18:29 Arthritis; Diabetes - NIDDM; Kidney stones; Migraines; Vertigo; aj1 - Immunization history:: Flu vaccine is not up to date. - Coronavirus screen:: The patient has NOT traveled to [place], [place], or [place] in the past 14 days. - Social history:: Smoking status: Patient reports the use of cigarette tobacco products, 3 cigarettes per day. - Ebola Screening: : Patient denies travel to an Ebola-affected area in the 21 days before illness onset. Screenin:00 Abuse screen: Denies threats or abuse. Nutritional screening: No deficits noted. fu Tuberculosis screening: No symptoms or risk factors identified. Fall Risk None identified. Assessment: 18:50 General: Appears in no apparent distress. uncomfortable, well groomed, well developed, sv Behavior is cooperative, appropriate for age, anxious. Pain: Complains of pain in left lower quadrant Pain radiates to left leg Pain currently is 8 out of 10 on a pain scale. Pain began 1 day ago. Is continuous. Neuro: Level of Consciousness is awake, alert, obeys commands, Oriented to person, place, time, situation, Moves all extremities. Full function Gait is steady. Respiratory: Respiratory effort is even, unlabored, Respiratory pattern is regular, symmetrical. GI: Abdomen is round Reports lower abdominal pain. Derm: Skin is pink, warm \T\ dry. 19:00 Reassessment: Patient appears in no apparent distress at this time. Patient and/or fu family updated on plan of care and expected duration. Pain level reassessed. Patient is alert, oriented x 3, equal unlabored respirations, skin warm/dry/pink. complaining of pain to left groin area.. 20:00 Reassessment: Patient appears in no apparent distress at this time. Patient and/or fu family updated on plan of care and expected duration. Pain level reassessed. Patient is alert, oriented x 3, equal unlabored respirations, skin warm/dry/pink. Patient states symptoms have improved. 21:00 Reassessment: Patient appears in no apparent distress at this time. Patient and/or fu family updated on plan of care and expected duration. Pain level reassessed. Patient is alert, oriented x 3, equal unlabored respirations, skin warm/dry/pink. Patient states symptoms have improved. Vital Signs: 18:29 BP 127 / 78; Pulse 63; Resp 16; Temp 97.6; Pulse Ox 98% on R/A; Weight 83.91 kg (R); aj1 Height 5 ft. 2 in. (157.48 cm) (R); Pain 8/10; 19:34 BP 129 / 77; Pulse 62; Resp 18; Pulse Ox 99% on R/A; Pain 9/10; fu 20:40 BP 127 / 66; Pulse 64; Pulse Ox 98% on R/A; fu 21:00 BP 115 / 48; Pulse 66; Pulse Ox 100% ; fu 21:15 BP 107 / 71; Pulse 63; Resp 16; Pulse Ox 98% on R/A; Pain 3/10; fu 18:29 Body Mass Index 33.84 (83.91 kg, 157.48 cm) aj1 ED Course: 18:24 Patient arrived in ED. mr 18:29 Triage completed. aj1 18:29 Arm band placed on Patient placed in an exam room. aj1 18:32 Galindo Avina PA is PHCP. [facility] 18:32 Joesph Wood MD is Attending Physician. jmm 18:49 Radiology exam delayed due to lab results not completed at this time. (BUN/Creatinine). bq 18:50 Patient has correct armband on for positive identification. Bed in low position. Call sv light in reach. Pulse ox on. Door closed. Warm blanket given. Head of bed elevated. 18:50 Inserted saline lock: 20 gauge in left antecubital area, using aseptic technique. Blood sv collected. Flushed left antecubital with 2 ml normal saline. 19:09 Report given to Eddie HERNANDEZ. sv 19:15 Eddie Araiza, RN is Primary Nurse. fu 19:43 Radiology exam delayed due to waiting to give pt pain meds. bq 20:07 CT completed. Patient tolerated procedure well. Patient moved back from CT. mw3 20:08 CT Abd/Pelvis - IV Contrast Only In Process Unspecified. EDMS 21:55 No provider procedures requiring assistance completed. IV discontinued, bleeding fu controlled, Pressure dressing applied. Administered Medications: 19:00 Drug: Zofran 4 mg Route: IVP; Site: left antecubital; sv 19:02 Drug: morphine 1 mg {Note: Pt stated for me to stop giving her the rest of the sv medication because she could feel it making her feel weird..} Route: IVP; Site: left antecubital; 19:48 Drug: fentaNYL (PF) 50 mcg Route: IVP; Site: left antecubital; fu 21:42 Drug: Valium 5 mg Route: IVP; Site: left antecubital; fu Outcome: 21:16 Discharge ordered by MD. sanchez 21:56 Discharged to home via wheelchair. fu 21:56 Condition: improved 21:56 Discharge instructions given to patient, Instructed on discharge instructions, follow up and referral plans. Demonstrated understanding of instructions, follow-up care, Prescriptions given X 1. 22:10 Patient left the ED. fu Signatures: Dispatcher [employer] EDMarcia Elias RN RN ajAllegra Solis RN RN sv Mickail, Joel, PA PA jmm Rivera, Mary mr Quilty, Eddie Solis RN RN fu Willis, Michelle mw3
[2019-10-26 22:25] VITALS: BP 127/78; TEMP 97.6; O2SAT 98
== END 2019-10-26 22:10 | disposition home or self-care (01) ==
LOC: ER 18:21
DX: S76.212A Strain of adductor muscle, fascia and tendon of left thigh, initial encounter (principal); E11.9 Type 2 diabetes mellitus without complications; Z79.82 Long term (current) use of aspirin; Z72.0 Tobacco use; Z88.0 Allergy status to penicillin; Z88.1 Allergy status to other antibiotic agents
CPT/HCPCS: 36415; 74177; 80048; 80076; 81003; 83690; 85025; 96374; 96375; 99284; J2405; J3010; J3360; Q9967

== ENCOUNTER 2020-08-02 17:31 | Emergency (ER) | payer OTHER, SELFPAY ==
--- OUTSIDE RECORDS SUMMARY | 2020-08-02 17:33 | XMS REPORT | Encounter Summary ---
:1965 Author Care Team Providers Name Role Phone Olivia Vieyra ([facility]) Primary Care Provider [phone] Reason for Visit Diabetes mellitus Instructions 1. Hemoglobin A1c between 7%-10% indicating borderline diabetic control CMP, serum or plasma HbA1c (hemoglobin A1c), bl ood 2. Elevated liver enzymes level 3. Onychomycosis of toenails 4. Body mass index 30+ - obesity body mass index: care inst ructions learning about healthy huyen ght obesity education informat ion learning about obesity starting a weight loss lauren n: care instructions when you are overweight: c are instructions when you are overweight: c are instructions Discussion Note schedule for wwe/pap and screening mammogram next month. will also need to discuss colorectal screening next month Plan of Care Reminders Provider Appointments [facility] 06/07/2020 Olivia Hankins Exam 1:45PM [facility] Vieyra Lab CMP, Serum 05/03/2020 [facility] p or Plasma HbA1C 05/03/2020 [facility] (Hemoglobin a1C), Blood Referral None recorded. Procedures None recorded. Surgeries None recorded. Imaging None recorded. Medications Name Start Date enalapril maleate 2.5 mg tablet TAKE 1 TABLET BY MOUTH ONCE DAILY metformin 500 mg tablet TAKE 1 TABLET BY MOUTH TWICE DAILY Medications Administered None recorded. Vitals Height Weight BMI Blood Pressure 5 ft 2 in 186 lbs 16 oz 34.2 kg/m2 136/76 mm[Hg] Results Lab Results Date Name Specimen Result Interpretation Description Value Range Status Address 05/03/2020 CMP, Serum Above Glucose 159 65-99 Final [facility] or Plasma High mg/dL mg/dL [facility]: [address] Bun 12 6-24 Final [facility] mg/dL mg/dL [facility]: [address] Creatinine 0.72 0.57-1. Final [facility] orp mg/dL 00 [facility]: [address] mg/dL [address] eGFR If 94 >59 Final [facility] Nonafricn AM mL/min/ mL/min/ PS C: Haile Adames 1.[address] eGFR If 108 >59 Final [facility] Africn AM mL/min/ mL/min/ [facility]: Haile Adames 1.[address] BUN/creatini 17 9-23 Final Lab colleen ne Ratio [facility]: [facility] [address] Sodium 138 134-144 Final [facility] mmol/L mmol/L [facility]: [address] Potassium 4.4 3.5-5.2 Final [facility] r[facility] mmol/L mmol/L [facility]: [address] Chloride 101 96-106 Final [facility] mmol/L mmol/L [facility]: [address] Carbon 21 20-29 Final [facility] Dioxide, mmol/L mmol/L P[facility]: [facility] [address] Calcium 10.0 8.7-10. Final [facility] mg/dL 2 mg/dL [facility]: [address] Protein, 7.0 6.0-8.5 Final [facility] p Total g/dL g/dL [facility]: [address] Albumin 4.4 3.8-4.9 Final [facility] g/dL g/dL [facility]: [address] Globulin, 2.6 1.5-4.5 Final [facility] Total g/dL g/dL [facility]: [address] A/g Ratio 1.7 1.2-2.2 Final [facility] rp [facility]: [address] Bilirubin, <0.2 0.0-1.2 Final [facility] Total mg/dL mg/dL [facility]: [address] Alkaline 117 39-117 Final [facility] Phosphatase IU/L IU/L [facility]: [address] Above Ast (Sgot) 53 IU/L 0-40 Final [facility] High IU/L [facility]: [address] Above Alt (Sgpt) 70 IU/L 0-32 Final [facility] orp High IU/L [facility]: [address] 05/03/2020 HbA1C Above Hemoglobin 7.6 % 4.8-5.6 Final [facility] (Hemoglobin High a1C % PSC: [address] a1C), Blood Normal Gessn er [address] Estim. Avg 171 Final [facility] Glu (EAG) mg/dL [facility]: [address] 05/03/2020 Diabetes Pdf . Final Lith olink Patient [employer] on Education : [address], [place] Allergies Code Code System Name Reaction Severity Status Onset Penicillins Other Moderate Active NKDA Problems Name Status Onset Date Source Vertigo Active 06/04/2018 Increased Liver Function Active 02/04/2020 Onychomycosis Active 05/03/2020 Diabetes Mellitus Active Hyperlipidemia Active Procedures Date Name Performed by Delivery Information not avai lable Fragmenting of Kidney Stone Information not available Tubal Ligation Information not avai lable Vaccine List Vaccine Type influenza, injectable, quadrivalent 08/24/2017 Pneumococcal Conjugate, unspecified form ulation 08/24/2017 pneumococcal polysaccharide PPV23 10/18/2011 Tdap 09/24/2017 Social History Tobacco Smoking Status Light Tobacco Smoker (1 PPW) Past Encounters 05/03/2020 Hemoglobin a1C between 7%-10% Indicating Borderline Diabetic Control; Elevated Liver Enzymes Level; Onychomycosis of Toenails; Body Mass Index 30+ - Obesity Olivia Vieyra, MANAGER SU[employer]PLY: [address], [place] [address], Ph. History of Present Illness Diabetes F/U Reported By: Patient HPI: Review finger sticks: post l unch: 161. Labs: last A1C result: 9.3; on 02/04/20. Context: seeing eye doctor regularly, checking feet regularly, home blood sugar range low ( below 70). Associated Symptoms: no weight gain, no weight loss, no diz ziness, no sweats, no headaches, no confusion, no increased thir st, no increased appetite, no increased urination, no blurred vision , no numbness of feet, no calluses on feet Note: <p>Pt c/o bs getting too low. lg</p><p>pt has hx of type ii dm. her last [id number] 9.3 on 02/04/20. she was restarted on her dm meds in january. she reports bs dropping low and she hasbeen having to drink OJ to bring it up. </p> Review of Systems Diabetes F/U ROS Reported By: Patient Cardiovascular:: Cardiovascular: no SOB, no p alpitations, no intermittent claudication Gastrointestinal: Gastrointestinal: no nausea, no vomiting, no constipation, no diarrhea Neurological: Neurological: no numbness, n o burning, no dizziness Extremities: Extremities: no edema, no ul cers Exercises: Exercises: ; none Diet: Diet: not following diet Constitutional: Constitutional: no fever, no night sweats, no significant weight gain, no significant weight loss, no exercise intolerance Endocrine: Endocrine: no fatigue Physical Exam Diabetes Reported By: Patient Constitutional: General Appearance: no signs of discomfort, no pain, not difficult to engage, healthy-appearing, w ell-developed, obese. Level of Distress: no acute distress Neck: Thyroid: no enlargement, non -tender, no nodules Lungs: Auscultation: breath sounds normal, good air movement, clear to auscultation, no wheezing, n o rales/crackles, no rhonchi Cardiovascular: Apical Impulse: not displace d. Heart Auscultation: RRR, normal S1, normal S2, no rubs, no cristina ps. Murmurs: no murmurs Abdomen: Inspection: soft, non-disten ded Extremities: Extremities: no cyanosis, no edema, no ulcers. Skin: no bunion, dry or cracked skin; thickened y ellow brittle toenails b/l all toes affected Neurologic: Sensation: monofilament norm al on the right, monofilament normal on the left
--- OUTSIDE RECORDS SUMMARY | 2020-08-02 17:33 | XMS REPORT | Continuity of Care Document ---
:1965 Author Organization [facility] t Address [address] [place] [address] Care Team Providers Name Role Phone Unavailable Unavailable Unavailable Problems Condition Condition Condition Status Onset Resolution Last Treating Co mments Source Name Details Category Date Date Treatment Clinician Date Onychomyco Onychomyco Problem Active [facility] sis [facility]10 [facility] Increased Increased Problem Active [facility] [place] liver Liver 5-13 da function Function 00:00: [facility] Vertigo Vertigo Problem Active [place] 9-11 da 00:[facility] Diabetes Diabetes Problem Active [place] mellitus Mellitus [facility] Hyperlipid Hyperlipid Problem Active [facility] emia emia [facility] Allergies, Adverse Reactions, Alerts Allergy Allergy Status Severity Reaction(s) Onset Inactive Treating Comm ents Source Name Type Date Date Clinician PENICILL Allergy Active Moderate Other [place] INS to da substanc [facility] Social History Smoking Status Start Date Stop Date Source Light Tobacco Smoker [facility] Medications Ordered Filled Start Stop Current Ordering Indication Dosage Frequency Signature Comments Components Source Medication Medication Date Date Medication? Clinician (SIG) Name Name enalapril enalapril No enalapril [place] maleate 2.5 maleate 2.5 maleate da mg tablet mg tablet 2.5 mg Epi scop TAKE 1 TAKE 1 tablet al TABLET BY TABLET BY TAKE 1 Hea lth MOUTH ONCE MOUTH ONCE TABLET BY Outreac DAILY DAILY MOUTH ONCE h DAILY Program metformin metformin No metformin [place] 500 mg 500 mg 500 mg da tablet TAKE tablet TAKE tablet [facility] 1 TABLET BY 1 TABLET BY TAKE 1 al MOUTH TWICE MOUTH TWICE TABLET BY Health DAILY DAILY MOUTH Outre[facility] TWICE h DAILY Program Immunizations Ordered Immunization Filled Immunization Date Status Commen ts Source Name Name Tdap Tdap 2017-09-24 Completed [place] 00:00[facility] influenza, influenza, 2017-08-24 Completed [place] injectable, injectable, 00:00:00 [facility] quadrivalent quadrivalent [facility] Pneumococcal Pneumococcal 2017-08-24 Completed [place] Conjugate, Conjugate, 00:00:00 [facility] unspecified unspecified Health Outre ach formulation formulation Program pneumococcal pneumococcal 2011-10-18 Completed [place] polysaccharide PPV23 polysaccharide PPV23 00:00:00 [facility] Vital Signs Vital Name Observation Time Observation Value Comments Source BP Diastolic 2020-05-03 00:00:00 76 mm[Hg] [facility] Height 2020-05-03 00:00:00 62 [in_i] [facility] BMI (Body Mass 2020-05-03 00:00:00 34.2 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 [facility] Index) [facility] Outreach Program BP Systolic 2020-05-03 00:00:00 136 mm[Hg] [facility] Body Weight 2020-05-03 00:00:00 2992 [oz_av] [facility] BP Diastolic 2020-02-04 00:00:00 78 mm[Hg] [facility] Height 2020-02-04 00:00:00 62 [in_i] [facility] BMI (Body Mass 2020-02-04 00:00:00 33.1 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 [facility] Index) [facility] Outreach Program BP Systolic 2020-02-04 00:00:00 136 mm[facility]Hg[facility] Body Weight 2020-02-04 00:00:00 181 [facility]lb_av[facility] Procedures Procedure Date / Time Performed Performing Clinician Sourc e Delivery [place] [facility] Fragmenting of Kidney [place] [facility] Tubal Ligation [place] [facility] Plan of Care Planned Activity Planned Date Details Comments Source Diagnostic Test 2020-05-03 CMP, serum or [place] [facility] Pending 00:00:00 plasma [code = Health Outrea CMP, serum or Program plasma] Diagnostic Test 2020-05-03 HbA1c (hemoglobin [place] [facility] Pending 00:00:00 A1c), blood [code Health Out reach = HbA1c Program (hemoglobin A1c), blood] Encounters Start End Encounter Admission Attending Care Care Encounter Source Date/Time Date/Time Type Type Clinicians Facility Department ID 2020-05-03 2020-05-03 Olivia OLGUIN [place] - [id number] [place] 00:00:00 00:00:00 Gee Vieyra 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 Program Results Test Description Test Time Test Comments Results Result Comments Source Comprehensive metabolic 2000 panel - Serum or Plasma 2020-04 00:00:00 Test Item Value Reference Range Interpretation Comme nts Glucose [Mass/volume] in Serum or Plasma (test code = 159 mg/dL 65-99 H 2345-7) Urea nitrogen [Mass/volume] in Serum or Plasma (test 12 mg/dL 6 -24 code = 3094-0) Creatinine [Mass/volume] in Serum or Plasma (test code 0.72 mg/dL 0.57-1.00 = 2160-0) Glomerular filtration rate/1.73 sq M.predicted among 94 mL/min/1.73 >59 non-blacks [Volume Rate/Area] in Serum, Plasma or Blood by Creatinine-based formula (CKD-EPI) (test code = 83344-8) Glomerular filtration rate/1.73 sq M.predicted among 108 mL/min/1.7 3 >59 blacks [Volume Rate/Area] in Serum, Plasma or Blood by Creatinine-based formula (CKD-EPI) (test code = 57315-9) Urea nitrogen/Creatinine [Mass Ratio] in Serum or 17 9-23 Plasma (test code = 3097-3) Sodium [Moles/volume] in Serum or Plasma (test code = 138 mmol/L 716-039 8181-2) Potassium [Moles/volume] in Serum or Plasma (test code 4.4 mmol/L 3.5-5.2 = 2823-3) Chloride [Moles/volume] in Serum or Plasma (test code = 101 mmol/L 96-106 2075-0) Carbon dioxide, total [Moles/volume] in Serum or Plasma 21 mmol/L 20-29 (test code = 8-9) Calcium [Mass/volume] in Serum or Plasma (test code = 10.0 mg/dL 8.7-10.2 08697-2) Protein [Mass/volume] in Serum or Plasma (test code = 7.0 g/dL 6.0-8.5 2885-2) Albumin [Mass/volume] in Serum or Plasma (test code = 4.4 g/dL 3.8-4.9 1-7) Globulin [Mass/volume] in Serum by calculation (test 2.6 g/dL 1 .5-4.5 code = 30516-5) Albumin/Globulin [Mass Ratio] in Serum or Plasma (test 1.7 1.2-2.2 code = 1759-0) Bilirubin.total [Mass/volume] in Serum or Plasma (test <0.2 0.0-1.2 code = 1975-2) Alkaline phosphatase [Enzymatic activity/volume] in 117 IU/L 39 -117 Serum or Plasma (test code = 6768-6) Aspartate aminotransferase [Enzymatic activity/volume] 53 IU/L 0-40 H in Serum or Plasma (test code = 1920-8) Alanine aminotransferase [Enzymatic activity/volume] in 70 IU/L 0-32 H Serum or Plasma (test code = 1742-6) [facility] Programdiabetes patient [id number] 00:00:00 Test Item Value Reference Range Interpretation Comments pdf (test code = pdf) . [facility]Hemoglobin.total in [id number] 00:00:00 Test Item Value Reference Range Interpretation Comments Hemoglobin A1c/Hemoglobin.total in 7.6 % 4.8-5.6 H Blood (test code = 4548-4) Glucose mean value [Mass/volume] in 171 mg/dL Blood Estimated from glycated hemoglobin (test code = 51770-1) [facility]
[2020-08-02 19:27] LABS: Absolute Lymphocytes (CBC) 3.8 K/uL (0.7-4.9); Basophils % 0.7 % (0-1.3); Hematocrit 39.9 % (36.0-45.0); Lymphocytes % 52.3 % (15.3-44.8); MPV 9.6 fL (7.6-11.3)
[2020-08-02] MEDS ORDERED: MORPHINE 2 MG/ML SYR ONE (19:27)
[2020-08-02] MEDS ORDERED: NA CHLORIDE 0.9% 500 ML ONE (19:27)
[2020-08-02] MEDS ORDERED: LIDOCAINE VISCOUS 2% SOLN 15 ML UDC ONE (19:28)
[2020-08-02 19:41] LABS: ALT/SGPT 65 U/L (12-78); AST/SGOT 57 U/L (15-37); Albumin 3.5 g/dL (3.4-5.0); Alkaline Phosphatase 108 U/L (45-117); BUN Blood Urea Nitrogen 14 mg/dL (7-18); Bicarbonate 29 mmol/L (21-32); Bilirubin Direct < 0.1 mg/dL (0-0.2); Bilirubin Total 0.3 mg/dL (0.2-1.0); Glucose Level 195 mg/dL (74-106); Potassium 3.8 mmol/L (3.5-5.1); Protein, Total 7.5 g/dL (6.4-8.2); Sodium Level 141 mmol/L (136-145)
[2020-08-02] MEDS ORDERED: BUPIVACAINE 0.5% PF 10 ML VIAL ONE (20:36)
[2020-08-02] MEDS ORDERED: LIDOCAINE 1% W/EPI 1:100,000 MDV 20 ML VIAL ONE (20:36)
--- NOTE | 2020-08-02 20:42 | RAD REPORT ---
EXAM DESCRIPTION: US - Abdomen Exam Limited - 08/02/2020 8:00 pm CLINICAL HISTORY: right groin area for abscess COMPARISON: Abdomen Pelvis W Contrast dated 10/26/2019 FINDINGS: Sonographic evaluation was performed of the right inner lower groin lateral to the labia. Patient has a soft tissue swelling and erythema process in this region. At the area of concern approximately 5 mm deep to the skin surface there is a 2 x 1 x 1 a amorphous shape hypoechoic focus. This is surrounded by echogenic fatty tissue. Abscess is the most likely etio logy. IMPRESSION: At the area of concern, a 2 x 1 x 1 centimeter sized abscess is identified approximately 5 mm deep to the skin surface.
[2020-08-02] MEDS ORDERED: CLINDAMYCIN 900MG/D5W 900 MG/50 ML IVPB IV ONE (20:45)
--- NOTE | 2020-08-02 21:08 | EDPHYS ---
Physician Documentation [facility] Name: Della Cortez Age: 55 yrs Sex: Female : 1965 Arrival Date: 08/02/2020 Time: 17:33 Bed 15 Private MD: ED Physician Luis Gross HPI: 08/02 19:00 This 55 yrs old Female presents to ER via Wheelchair with complaints of Cyst. cp 19:00 The patient presents with an abscess of the right groin. cp 19:00 Description: draining, swollen. Onset: The symptoms/episode began/occurred 5 day(s) cp ago. Possible cause(s): unknown. Associated signs and symptoms: Pertinent positives: drainage, Pertinent negatives: fever, vomiting. Historical: - Allergies: 18:08 Levaquin; ca1 18:08 PENICILLINS; ca1 - Home Meds: 18:08 aspirin 81 mg Oral chew 1 tab once daily [Active]; metformin 500 mg Oral tab 2 times ca1 per day [Active]; Topamax Oral as needed [Active]; - PMHx: 18:08 Arthritis; Diabetes - NIDDM; Kidney stones; Migraines; Vertigo; ca1 - PSHx: 18:08 ; ca1 - Immunization history:: Adult Immunizations up to date, Flu vaccine is up to date. - Social history:: Smoking status: Patient/guardian denies using tobacco, Stopped _ months ago 1. ROS: 19:05 Skin: Positive for abscess, of the right groin. cp 19:05 Constitutional: Negative for body aches, chills, fever. cp 19:05 Abdomen/GI: Negative for abdominal pain, nausea, vomiting, and diarrhea. 19:05 : Negative for urinary symptoms. 19:05 All other systems are negative. Exam: 19:20 Constitutional: The patient appears in no acute distress, alert, awake, non-toxic, well cp developed, well nourished, uncomfortable. 19:20 Head/Face: Normocephalic, atraumatic. cp 19:20 Chest/axilla: Inspection: normal. 19:20 Cardiovascular: Rate: normal, Rhythm: regular. 19:20 Respiratory: the patient does not display signs of respiratory distress, Respirations: normal, no use of accessory muscles, no retractions, labored breathing, is not present. 19:20 Abdomen/GI: Inspection: abdomen appears normal, Palpation: abdomen is soft and non-tender, in all quadrants. 19:20 Skin: abscess, that is small, of the right groin, very mild surrounding erythema. 19:20 Neuro: Orientation: to person, place \T\ time. Mentation: is normal. Vital Signs: 18:08 BP 124 / 67; Pulse 70; Resp 16 S; Temp 97.7(TE); Pulse Ox 100% on R/A; Weight 81.65 kg ca1 (R); Height 5 ft. 2 in. (157.48 cm) (R); Pain 9/10; 18:26 BP 129 / 88; Pulse 76; Resp 17; Pulse Ox 99% on R/A; tw2 19:48 BP 133 / 85; Pulse 66; Resp 19; Pulse Ox 100% ; Pain 10/10; bb3 21:40 BP 125 / 73; Pulse 71; Resp 17 S; Pulse Ox 100% on R/A; jd3 18:08 Body Mass Index 32.92 (81.65 kg, 157.48 cm) ca1 Procedures: 21:00 I \T\ D: Incision and drainage was performed for an abscess of the right groin Prepped cp with Betadine, Anesthetized with 6 ccs of 1% lidocaine with epi and 0.5% marcaine. Incised with #11 blade. Drained small amount purulent fluid. Packed with iodoform gauze, Dressing: sterile 4x4 gauze, the patient tolerated the procedure well. MDM: 18:36 Patient medically screened. cp 19:00 Differential diagnosis: abscess, cellulitis, insect bite. cp 21:07 Data reviewed: vital signs, nurses notes, lab test result(s), and as a result, I will cp discharge patient. 21:07 Counseling: I had a detailed discussion with the patient and/or guardian regarding: the cp historical points, exam findings, and any diagnostic results supporting the discharge/admit diagnosis, lab results, the need for outpatient follow up, a general surgeon, to return to the emergency department if symptoms worsen or persist or if there are any questions or concerns that arise at home. Response to treatment: the patient's symptoms have markedly improved after treatment. 08/02 18:53 Order name: Basic Metabolic Panel; Complete Time: 19:46 cp 08/02 18:53 Order name: CBC with Diff; Complete Time: 19:46 08/02 18:53 Order name: Hepatic Function; Complete Time: 19:46 08/02 18:53 Order name: US Abdomen Limited; Complete Time: 21:23 08/02 21:24 Interpretation: Report reviewed. 08/02 18:53 Order name: Wound Culture 08/02 18:53 Order name: IV Saline Lock; Complete Time: 19:19 08/02 18:53 Order name: Labs collected and sent; Complete Time: 19:19 08/02 20:22 Order name: I\T\D Setup; Complete Time: 20:25 cp Administered Medications: 19:25 Drug: morphine 2 mg Route: IVP; Site: left antecubital; bb3 20:20 Follow up: Response: No adverse reaction; RASS: Alert and Calm (0) jd3 19:27 Drug: Lidocaine Gel 2 % 1 ea Volume: 15 ml; Route: Mucous Membrane; bb3 20:20 Follow up: Response: No adverse reaction jd3 19:30 Drug: NS 0.9% 500 ml Route: IV; Rate: bolus; Site: left antecubital; bb3 20:30 Follow up: Response: No adverse reaction; IV Status: Completed infusion jd3 20:24 Drug: Marcaine (0.5 %) 5 ml Volume: 10 ml; Route: Infiltration; jd3 21:31 Follow up: Response: No adverse reaction jd3 20:25 Drug: Lidocaine-Epinephrine -1%: (1:100,000) 5 ml Volume: 20 ml; Route: Infiltration; jd3 21:31 Follow up: Response: No adverse reaction jd3 20:40 Drug: Clindamycin 900 mg Route: IVPB; Infused Over: 30 mins; Site: left antecubital; jd3 21:31 Follow up: Response: No adverse reaction; IV Status: Completed infusion jd3 Disposition: 21:30 Chart complete. Disposition: 08/02/20 21:08 Discharged to Home. Impression: Cutaneous abscess of groin - right. - Condition is Stable. - Discharge Instructions: Skin Abscess, Incision and Drainage. - Prescriptions for Clindamycin HCl 300 mg Oral Capsule - take 1 capsule by ORAL route every 6 hours for 10 days; 40 capsule. Tylenol- Codeine #3 300-30 mg Oral Tablet - take 2 tablets by ORAL route every 6 hours As needed; 20 tablet. Bactrim DS 800- 160 mg Oral Tablet - take 1 tablet by ORAL route every 12 hours for 10 days; 20 tablet. - Medication Reconciliation Form, Thank You Letter, Antibiotic Education, Prescription Opioid Use form. - Work release form (08/03/20 10:31). em1 - Follow up: Dinesh Carrera MD; When: 1 - 2 days; Reason: Wound Recheck. - Problem is new. - Symptoms have improved. Addendum: 08/05/2020 15:18 Co-signature as Attending Physician, Luis Gross MD I agree with the assessment and k dr plan of care. Signatures: Dispatcher [employer] EDMS Luis Gross MD MD [facility] Joesph Blackwell PA PA cp Albino Loo RN RN jd3 Danii Graff RN RN ca1 Akila Yanez bb3 Chris Rincon em1 Corrections: (The following items were deleted from the chart) 08/02 21:41 21:08 08/02/2020 21:08 Discharged to Home. Impression: Cutaneous abscess of groin - jd3 right. Condition is Stable. Forms are Medication Reconciliation Form, Thank You Letter, Antibiotic Education, Prescription Opioid Use. Follow up: Dr. Dinesh Carrera; When: 1 - 2 days; Reason: Wound Recheck. Problem is new. Symptoms have improved. cp
--- NOTE | 2020-08-02 21:08 | ER ---
Nurse's Notes [facility] Name: Della Cortez Age: 55 yrs Sex: Female : 1965 Arrival Date: 08/02/2020 Time: 17:33 Bed 15 Private MD: Diagnosis: Cutaneous abscess of groin-right Presentation: 08/02 18:06 Chief complaint: Patient states: Abscess on R inguinal area x 5 days. Denies fever. ca1 Coronavirus screen: Client denies travel out of the [place] in the last 14 days. At this time, the client does not indicate any symptoms associated with coronavirus-19. Ebola Screen: Patient negative for fever greater than or equal to 101.5 degrees Fahrenheit, and additional compatible Ebola Virus Disease symptoms Patient denies exposure to infectious person. Patient denies travel to an Ebola-affected area in the 21 days before illness onset. No symptoms or risks identified at this time. Initial Sepsis Screen: Does the patient meet any 2 criteria? No. Patient's initial sepsis screen is negative. Does the patient have a suspected source of infection? No. Patient's initial sepsis screen is negative. Risk Assessment: Do you want to hurt yourself or someone else? Patient reports no desire to harm self or others. Onset of symptoms was August 02, 2020. 18:06 Method Of Arrival: Wheelchair ca1 18:06 Acuity: MURRAY 4 ca1 Historical: - Allergies: 18:08 Levaquin; ca1 18:08 PENICILLINS; ca1 - Home Meds: 18:08 aspirin 81 mg Oral chew 1 tab once daily [Active]; metformin 500 mg Oral tab 2 times ca1 per day [Active]; Topamax Oral as needed [Active]; - PMHx: 18:08 Arthritis; Diabetes - NIDDM; Kidney stones; Migraines; Vertigo; ca1 - PSHx: 18:08 ; ca1 - Immunization history:: Adult Immunizations up to date, Flu vaccine is up to date. - Social history:: Smoking status: Patient/guardian denies using tobacco, Stopped _ months ago 1. Screenin:12 Abuse screen: Denies threats or abuse. Nutritional screening: No deficits noted. tw2 Tuberculosis screening: No symptoms or risk factors identified. Fall Risk None identified. Assessment: 18:17 Reassessment: pt requesting to urinate at this time, specimen cup provided. tw2 18:24 General: Appears uncomfortable, obese, well groomed, Behavior is calm, cooperative, tw2 appropriate for age. Pain: Complains of pain in right inguinal area. Neuro: Level of Consciousness is awake, alert, obeys commands, Oriented to person, place, time, situation. Cardiovascular: Patient's skin is warm and dry. Respiratory: Airway is patent Respiratory effort is even, unlabored, Respiratory pattern is regular, symmetrical. GI: No signs and/or symptoms were reported involving the gastrointestinal system. Abdomen is round non-distended, obese. : No signs and/or symptoms were reported regarding the genitourinary system. EENT: No signs and/or symptoms were reported regarding the EENT system. Derm: Abscess located on right inguinal area Reports abscess in the right inquinal area "it opened up i guess during my sleep and there is a big painful ball under the skin, i dont think i can tolerate them cutting it open", provider notified. 19:47 Reassessment: No changes from previously documented assessment. Patient and/or family bb3 updated on plan of care and expected duration. Pain level reassessed. Patient is alert, oriented x 3, equal unlabored respirations, skin warm/dry/pink. Patient states symptoms have not improved. General: Appears distressed, uncomfortable. Pain: Complains of pain in groin Pain currently is 10 out of 10 on a pain scale. 20:06 Reassessment: Patient appears in no apparent distress at this time. No changes from jd3 previously documented assessment. Patient and/or family updated on plan of care and expected duration. Pain level reassessed. Patient is alert, oriented x 3, equal unlabored respirations, skin warm/dry/pink. 21:09 Reassessment: Patient appears in no apparent distress at this time. Patient and/or jd3 family updated on plan of care and expected duration. Pain level reassessed. Patient is alert, oriented x 3, equal unlabored respirations, skin warm/dry/pink. 21:40 Reassessment: Patient appears in no apparent distress at this time. Patient and/or jd3 family updated on plan of care and expected duration. Pain level reassessed. Patient is alert, oriented x 3, equal unlabored respirations, skin warm/dry/pink. Patient states feeling better. Vital Signs: 18:08 BP 124 / 67; Pulse 70; Resp 16 S; Temp 97.7(TE); Pulse Ox 100% on R/A; Weight 81.65 kg ca1 (R); Height 5 ft. 2 in. (157.48 cm) (R); Pain 9/10; 18:26 BP 129 / 88; Pulse 76; Resp 17; Pulse Ox 99% on R/A; tw2 19:48 BP 133 / 85; Pulse 66; Resp 19; Pulse Ox 100% ; Pain 10/10; bb3 21:40 BP 125 / 73; Pulse 71; Resp 17 S; Pulse Ox 100% on R/A; jd3 18:08 Body Mass Index 32.92 (81.65 kg, 157.48 cm) ca1 ED Course: 17:33 Patient arrived in ED. ag5 18:07 Triage completed. ca1 18:08 Arm band placed on right wrist. ca1 18:12 Radha Dunn, RN is Primary Nurse. tw2 18:12 Placed in gown. Bed in low position. Pulse ox on. NIBP on. Warm blanket given. tw2 18:17 Joesph Blackwell PA is PHCP. cp 18:17 Luis Gross MD is Attending Physician. cp 18:49 served as director of labor and delivery for inspection and wound culture of right inguinal area performed by tw2 JOSSY Dunn. 19:04 Report given to MARY Wilburn. tw2 19:10 Initial lab(s) drawn, by mt, sent to lab. Wound culture swab sent to lab. Inserted jp3 saline lock: 20 gauge in left antecubital area, using aseptic technique. Blood collected. 20:00 US Abdomen Limited In Process Unspecified. EDMS 21:07 Dinesh Carrera MD is Referral Physician. cp 21:08 Assist provider with I \\T\\ D: Set up I\\T\\D tray. Performed by Joesph FENTON Patient alina 3 tolerated well. 21:27 Primary Nurse role handed off by Radha Dunn, MARY sg 21:30 Albino Loo RN is Primary Nurse. jd3 21:40 IV discontinued, intact, bleeding controlled, No redness/swelling at site. Pressure jd3 dressing applied. Administered Medications: 19:25 Drug: morphine 2 mg Route: IVP; Site: left antecubital; bb3 20:20 Follow up: Response: No adverse reaction; RASS: Alert and Calm (0) jd3 19:27 Drug: Lidocaine Gel 2 % 1 ea Volume: 15 ml; Route: Mucous Membrane; bb3 20:20 Follow up: Response: No adverse reaction jd3 19:30 Drug: NS 0.9% 500 ml Route: IV; Rate: bolus; Site: left antecubital; bb3 20:30 Follow up: Response: No adverse reaction; IV Status: Completed infusion jd3 20:24 Drug: Marcaine (0.5 %) 5 ml Volume: 10 ml; Route: Infiltration; jd3 21:31 Follow up: Response: No adverse reaction jd3 20:25 Drug: Lidocaine-Epinephrine -1%: (1:100,000) 5 ml Volume: 20 ml; Route: Infiltration; jd3 21:31 Follow up: Response: No adverse reaction jd3 20:40 Drug: Clindamycin 900 mg Route: IVPB; Infused Over: 30 mins; Site: left antecubital; jd3 21:31 Follow up: Response: No adverse reaction; IV Status: Completed infusion jd3 Outcome: 21:08 Discharge ordered by . cp 21:40 Discharged to home via wheelchair, with friend. jd3 21:40 Condition: stable 21:40 Discharge instructions given to patient, Instructed on discharge instructions, follow up and referral plans. medication usage, Demonstrated understanding of instructions, follow-up care, medications, Prescriptions given X 3. 21:41 Patient left the ED. jd3 Signatures: Dispatcher [employer] EDMS Solo Fabian RN RN Joesph Gerber PA PA cp Radha Dunn RN RN tw2 Albino Loo RN RN jd3 Wesley Hammond jp3 Danii Graff RN RN ca1 Devan Villanueva ag5 Akila Yanez bb3
[2020-08-03 07:00] VITALS: TEMP 97.7
[2020-08-03 07:03] VITALS: O2SAT 100
[2020-08-03 07:04] VITALS: BP 125/73
== END 2020-08-02 21:41 | disposition home or self-care (01) ==
LOC: ER 17:31
PROC: 0J980ZZ Drainage of Abdomen Subcutaneous Tissue and Fascia, Open Approach (ICD-10-PCS; principal; 2020-08-02)
DX: L02.214 Cutaneous abscess of groin (principal); E11.9 Type 2 diabetes mellitus without complications; Z79.82 Long term (current) use of aspirin; Z88.0 Allergy status to penicillin; Z88.1 Allergy status to other antibiotic agents
CPT/HCPCS: 96365; 96361; 87070; 85025; 80048; 36415; 87205; 80076; 76705; 96375; 99284; 10060; J2270; J7040

== ENCOUNTER 2020-08-05 15:04 | Emergency (ER) | payer OTHER ==
--- OUTSIDE RECORDS SUMMARY | 2020-08-05 15:06 | XMS REPORT | Continuity of Care Document ---
:1965 Author Organization [facility] t Address [address] [place] [address] Care Team Providers Name Role Phone Unavailable [...] Date Stop Date Source Light Tobacco Smoker [facility] Medications Ordered [...] Source Name Name Tdap Tdap 2017-09-24 Completed [place] 00:00:00 [facility] influenza, influenza, 2017-08-24 Completed [place] injectable, injectable, 00:00:00 [facility] quadrivalent quadrivalent [facility] Pneumococcal Pneumococcal 2017-08-24 Completed [place] Conjugate, Conjugate, 00:00:00 [facility] unspecified unspecified Health Outre ach formulation formulation Program pneumococcal pneumococcal 2011-10-18 Completed [place] polysaccharide PPV23 polysaccharide PPV23 00:00:00 [facility] Vital Signs Vital Name Observation Time Observation Value Comments Source BP Diastolic 2020-05-03 00:00:00 76 mm[Hg] [facility] Height 2020-05-03 00:00:00 62 [in_i] 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 Body Weight 2020-05-03 00:00:00 2992 [oz_av] 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) [facility] Outreach Program BP Systolic 2020-02-04 00:00:00 136 mm[Hg] [facility] Body Weight 2020-02-04 00:00:00 181 [lb_av] [facility] Procedures Procedure Date / Time Performed Performing Clinician Sourc e Delivery [facility] Fragmenting of Kidney [place] [facility] Tubal Ligation [facility] Plan of Care Planned Activity Planned Date Details Comments Source Diagnostic Test 2020-05-03 CMP, serum or [facility] Pending 00:00:00 plasma [code = Health Outrea CMP, serum or Program plasma] Diagnostic Test 2020-05-03 HbA1c (hemoglobin [place] [facility] Pending 00:00:00 A1c), blood [code Health Out reach = HbA1c Program (hemoglobin A1c), blood] Encounters Start End Encounter Admission Attending Care Care Encounter Source Date/Time Date/Time Type Type Clinicians Facility Department ID 2020-05-03 2020-05-03 Olivia OLGU[place] - [id number] [place] 00:00:00 00:00:00 Gee Vieyra SUPERVISOR NUT PROCESSING: [address] [facility], [place], [place] [id number] h , Ph. Program 2020-02-04 2020-02-04 [place] OLGUIN [place] - [id number] [place] 00:00:00 00:00:00 Gee Vieyra SUPERVISOR NUT PROCESSING: [address] [facility] al Time, [place], [place] [id number] h , Ph. Program Results Test Description [...] by Creatinine-based formula (CKD-EPI) (test code = 30547-8) Glomerular filtration rate/1.73 sq M.predicted among 108 mL/min/1.7 3 >59 blacks [Volume Rate/Area] in Serum, Plasma or Blood by Creatinine-based formula (CKD-EPI) (test code = 54182-9) Urea nitrogen/Creatinine [Mass Ratio] in Serum or 17 9-23 Plasma (test code = 3097-3) Sodium [Moles/volume] in Serum or Plasma (test code = 138 mmol/L 257-110 1898-2) Potassium [Moles/volume] in Serum or Plasma (test code 4.4 mmol/L 3.5-5.2 = 2823-3) Chloride [Moles/volume] in Serum or Plasma (test code = 101 mmol/L 96-106 2075-0) Carbon dioxide, total [Moles/volume] in Serum or Plasma 21 mmol/L 20-29 (test code = 8-9) Calcium [Mass/volume] in Serum or Plasma (test code = 10.0 mg/dL 8.7-10.2 47357-3) Protein [Mass/volume] in Serum or Plasma (test code = 7.0 g/dL 6.0-8.5 2885-2) Albumin [Mass/volume] in Serum or Plasma (test code = 4.4 g/dL 3.8-4.9 1-7) Globulin [Mass/volume] in Serum by calculation (test 2.6 g/dL 1 .5-4.5 code = 76338-5) Albumin/Globulin [Mass Ratio] in Serum or Plasma [...] Serum or Plasma (test code = 1742-6) [facility] Programdi[facility] patient [id number] 00:00:00 Test Item Value Reference Range Interpretation Comments pdf (test code = pdf) . [facility]Hemoglobin.total in [id number] 00:00:00 Test Item Value Reference Range Interpretation Comments Hemoglobin A1c/Hemoglobin.total in 7.6 % 4.8-5.6 H Blood (test code = 4548-4) Glucose mean value [Mass/volume] in 171 mg/dL Blood Estimated from glycated hemoglobin (test code = 87041-8) [facility]
--- NOTE | 2020-08-05 17:01 | RAD REPORT ---
EXAM DESCRIPTION: US - Extremity Nonvascular Limited - 08/05/2020 4:27 pm CLINICAL HISTORY: Right inner groin abscess COMPARISON: None FINDINGS: An 8 millimeter hypoechoic mass is present within the right inner groin. It contains incre ased vascularity within this and in the surrounding tissues. IMPRESSION: 8 millimeter hypoechoic mass likely an abscess
--- NOTE | 2020-08-05 17:05 | EDPHYS ---
Physician Documentation [facility] Name: Della Cortez Age: 55 yrs Sex: Female : 1965 Arrival Date: 08/05/2020 Time: 15:07 Bed 18 Private MD: ED Physician Luis Gross HPI: 08/05 18:43 This 55 yrs old Female presents to ER via Wheelchair with complaints of kb Abscess. 18:43 The patient has not experienced similar symptoms in the past. kb 18:44 Patient presents to ED for recheck of: abscess. The affected area is on the groin. kb Previous treatment: The patient was initially treated 2 day(s) ago, the care was rendered at [facility], Treatment type: The patient's original treatment included an I\T\D, Outpatient prescription(s): The patient was given prescription(s) for Bactrim, clindamycin. Progress: The patient reports decreased drainage, redness, swelling, increased pain. The patient has been recently seen at the [facility] Emergency Department, this week, for similar complaints was given a prescription for antibiotics. Pt had abscess I\T\D performed on 08/02/20. States she couldn't find a surgeon that took her insurance so she came back to have the packing removed and it checked. Historical: - Allergies: 15:14 Levaquin; hb 15:14 PENICILLINS; hb - PMHx: 15:14 Arthritis; Diabetes - NIDDM; Kidney stones; Migraines; Vertigo; hb - PSHx: 15:14 ; hb - Immunization history:: Adult Immunizations up to date. - Social history:: Smoking status: Patient reports the use of cigarette tobacco products, smokes one-half pack cigarettes per day. ROS: 18:42 Constitutional: Negative for fever, chills, and weight loss, Cardiovascular: Negative kb for chest pain, palpitations, and edema, Respiratory: Negative for shortness of breath, cough, wheezing, and pleuritic chest pain, Abdomen/GI: Negative for abdominal pain, nausea, vomiting, diarrhea, and constipation, Back: Negative for injury and pain, MS/Extremity: Negative for injury and deformity, Neuro: Negative for headache, weakness, numbness, tingling, and seizure. 18:42 Skin: Positive for abscess, of the groin. Exam: 18:42 Constitutional: This is a well developed, well nourished patient who is awake, alert, kb and in no acute distress. Head/Face: Normocephalic, atraumatic. Chest/axilla: Normal chest wall appearance and motion. Nontender with no deformity. No lesions are appreciated. Cardiovascular: Regular rate and rhythm with a normal S1 and S2. No gallops, murmurs, or rubs. Normal PMI, no JVD. No pulse deficits. Respiratory: Lungs have equal breath sounds bilaterally, clear to auscultation and percussion. No rales, rhonchi or wheezes noted. No increased work of breathing, no retractions or nasal flaring. Abdomen/GI: Soft, non-tender, with normal bowel sounds. No distension or tympany. No guarding or rebound. No evidence of tenderness throughout. MS/ Extremity: Pulses equal, no cyanosis. Neurovascular intact. Full, normal range of motion. Neuro: Awake and alert, GCS 15, oriented to person, place, time, and situation. Cranial nerves II-XII grossly intact. Motor strength 5/5 in all extremities. Sensory grossly intact. Cerebellar exam normal. Normal gait. 18:42 Skin: Wound recheck: Abscess: more pain, the packing is in place. Vital Signs: 15:12 BP 124 / 74; Pulse 64; Resp 16; Temp 98.9; Pulse Ox 100% on R/A; Pain 10/10; hb 15:35 BP 121 / 59; Pulse 65; Resp 14; Pulse Ox 99% on R/A; Pain 10/10; vg1 16:00 BP 104 / 49; Pulse 61; Resp 16; Pulse Ox 100% on R/A; vg1 16:30 BP 126 / 67; Pulse 62; Resp 16; Pulse Ox 99% on R/A; Pain 8/10; vg1 17:00 BP 128 / 65; Pulse 60; Resp 14; Pulse Ox 99% on R/A; vg1 MDM: 15:34 Patient medically screened. kb 17:04 Data reviewed: vital signs, nurses notes. Data interpreted: Pulse oximetry: on room air kb is 99 %. Interpretation: normal. Counseling: I had a detailed discussion with the patient and/or guardian regarding: the historical points, exam findings, and any diagnostic results supporting the discharge/admit diagnosis, radiology results, the need for outpatient follow up, a general surgeon, to return to the emergency department if symptoms worsen or persist or if there are any questions or concerns that arise at home. 17:19 ED course: Pt reports decrease in pain since packing was removed. No swelling, redness kb or inflammation noted. Packing removed from site. No drainage noted after packing removed. Site appears to be healing well. 08/05 15:40 Order name: US Ashraf Nonvasular Limited; Complete Time: 17:03 kb Administered Medications: No medications were administered Disposition: 08/06 05:09 Co-signature as Attending Physician, Luis Gross MD I agree with the assessment and kdr plan of care. Disposition: 08/05/20 17:04 Discharged to Home. Impression: Cutaneous abscess of groin. - Condition is Stable. - Discharge Instructions: Skin Abscess, Qyat-gb-Norn, Incision and Drainage, Care After. - Medication Reconciliation Form, Thank You Letter, Antibiotic Education, Prescription Opioid Use form. - Follow up: Emergency Department; When: As needed; Reason: Worsening of condition. Follow up: Private Physician; When: 2 - 3 days; Reason: Recheck today's complaints, Continuance of care, Re-evaluation by your physician. - Notes: Continue antibiotics as prescribed. Signatures: Dispatcher [employer] EDMS Varsha Voss, EXPERIMENTAL TECHNICIAN-C EXPERIMENTAL TECHNICIAN-CkLuis Arndt MD MD [facility] Eliz Sparks, MARY HERNANDEZ Germania Smith RN RN vg1 Corrections: (The following items were deleted from the chart) 08/05 17:21 17:04 08/05/2020 17:04 Discharged to Home. Impression: Cutaneous abscess of groin. vg1 Condition is Stable. Forms are Medication Reconciliation Form, Thank You Letter, Antibiotic Education, Prescription Opioid Use. Follow up: Emergency Department; When: As needed; Reason: Worsening of condition. Follow up: Private Physician; When: 2 - 3 days; Reason: Recheck today's complaints, Continuance of care, Re-evaluation by your physician. kb 18:47 17:19 ED course: Pt reports decrease in pain since packing was removed. kb kb
--- NOTE | 2020-08-05 17:05 | ER ---
Nurse's Notes [facility] Name: Della Cortez Age: 55 yrs Sex: Female : 1965 Arrival Date: 08/05/2020 Time: 15:07 Bed 18 Private MD: Diagnosis: Cutaneous abscess of groin Presentation: 08/05 15:12 Chief complaint: Seen in ED 08/02 for abscess on groin, was unable to find surgeon that hb accepts her insurance, reports worsening pain and now feels pain in her buttocks and perineum. Coronavirus screen: At this time, the client does not indicate any symptoms associated with coronavirus-19. Ebola Screen: No symptoms or risks identified at this time. Initial Sepsis Screen: Does the patient meet any 2 criteria? No. Patient's initial sepsis screen is negative. Does the patient have a suspected source of infection? No. Patient's initial sepsis screen is negative. Risk Assessment: Do you want to hurt yourself or someone else? Patient reports no desire to harm self or others. Onset of symptoms was August 02, 2020. 15:12 Method Of Arrival: Wheelchair hb 15:12 Acuity: MURRAY 3 hb Historical: - Allergies: 15:14 Levaquin; hb 15:14 PENICILLINS; hb - PMHx: 15:14 Arthritis; Diabetes - NIDDM; Kidney stones; Migraines; Vertigo; hb - PSHx: 15:14 ; hb - Immunization history:: Adult Immunizations up to date. - Social history:: Smoking status: Patient reports the use of cigarette tobacco products, smokes one-half pack cigarettes per day. Screenin:28 Abuse screen: Denies threats or abuse. Nutritional screening: No deficits noted. vg1 Tuberculosis screening: No symptoms or risk factors identified. Fall Risk No fall in past 12 months (0 pts). No secondary diagnosis (0 pts). No IV (0 pts). Ambulatory Aid- None/Bed Rest/Nurse Assist (0 pts). Gait- Normal/Bed Rest/Wheelchair (0 pts) Mental Status- Oriented to own ability (0 pts). Total Espinoza Fall Scale indicates No Risk (0-24 pts). Assessment: 15:28 General: Appears uncomfortable, Behavior is cooperative, crying. Pain: Complains of vg1 pain in right side of groin Pain currently is 10 out of 10 on a pain scale. Neuro: Level of Consciousness is awake, alert, obeys commands, confused, Oriented to person, place, time, situation. Cardiovascular: Capillary refill < 3 seconds in bilateral fingers Patient's skin is warm and dry. Respiratory: Airway is patent Respiratory effort is even, unlabored, Respiratory pattern is regular, symmetrical. GI: No signs and/or symptoms were reported involving the gastrointestinal system. : No signs and/or symptoms were reported regarding the genitourinary system. EENT: No signs and/or symptoms were reported regarding the EENT system. Derm: Skin is pink, warm \\T\\ dry. Musculoskeletal: Range of motion: intact in all extremities. 16:50 Reassessment: Patient and/or family updated on plan of care and expected duration. Pain vg1 level reassessed. Patient is alert, oriented x 3, equal unlabored respirations, skin warm/dry/pink. Patient states groin site "feels a little better since the gauze was pulled out". Rated pain 8/10. Vital Signs: 15:12 BP 124 / 74; Pulse 64; Resp 16; Temp 98.9; Pulse Ox 100% on R/A; Pain 10/10; hb 15:35 BP 121 / 59; Pulse 65; Resp 14; Pulse Ox 99% on R/A; Pain 10/10; vg1 16:00 BP 104 / 49; Pulse 61; Resp 16; Pulse Ox 100% on R/A; vg1 16:30 BP 126 / 67; Pulse 62; Resp 16; Pulse Ox 99% on R/A; Pain 8/10; vg1 17:00 BP 128 / 65; Pulse 60; Resp 14; Pulse Ox 99% on R/A; vg1 ED Course: 15:07 Patient arrived in ED. rg4 15:13 Triage completed. hb 15:14 Arm band placed on. hb 15:22 Lennox Gentile, RN is Primary Nurse. em 15:27 Germania Smith, MARY is Primary Nurse. vg1 15:28 Patient has correct armband on for positive identification. Placed in gown. Bed in low vg1 position. Call light in reach. Pulse ox on. NIBP on. Door closed. 15:34 Varsha Voss FNP-C is PHCP. kb 15:34 Luis Gross MD is Attending Physician. kb 16:16 US at bedside. vg1 16:27 US Extrmty Nonvasular Limited In Process Unspecified. EDMS 17:19 No provider procedures requiring assistance completed. No provider procedures requiring vg1 assistance completed. Patient did not have IV access during this emergency room visit. Administered Medications: No medications were administered Outcome: 17:04 Discharge ordered by . kb 17:20 Discharged to home ambulatory. vg1 17:20 Condition: stable 17:20 Discharge instructions given to patient, Instructed on discharge instructions, follow up and referral plans. Demonstrated understanding of instructions, follow-up care. 17:21 Patient left the ED. vg1 Signatures: Dispatcher [employer] EDMS Varsha Voss, TARE WORKER-C TARE WORKER-Lennox Larry, RN RN Eliz Grover, RN RN Xiomara Jackson4 Germania Smith RN RN vg1
[2020-08-05 20:14] VITALS: TEMP 98.9
[2020-08-05 20:20] VITALS: O2SAT 99
[2020-08-05 20:21] VITALS: BP 128/65
== END 2020-08-05 17:21 | disposition home or self-care (01) ==
LOC: ER 15:04
DX: L02.214 Cutaneous abscess of groin (principal); Z88.0 Allergy status to penicillin; Z88.1 Allergy status to other antibiotic agents; F17.210 Nicotine dependence, cigarettes, uncomplicated
CPT/HCPCS: 76882; 99283

== ENCOUNTER 2024-06-11 11:16 | Emergency (ER) | payer OTHER, SELFPAY ==
[2024-06-11] MEDS ORDERED: IBUPROFEN 400 MG TAB ONE (12:14)
--- NOTE | 2024-06-11 12:14 | ER ---
Nurse's Notes [facility] Name: Della Carlson Age: 58 yrs Sex: Female : 1965 Arrival Date: 06/11/2024 Time: 11:16 Bed DX3 Private MD: Diagnosis: Acute maxillary sinusitis;Rib pain Presentation: 06/11 11:50 Chief complaint: Patient states: 3 weeks ago woke up with headache, sinus pressure, and tm6 thick phlegm, coughing, left eye hurting. Got antibiotics from [employer] [facility] store. Been taking them for 2 weeks. Started fever last night. Took cough syrup and libby selzer last night, still not feeling better. Right rib/chest/back hurting when coughing. Feeling very weak. Coronavirus screen: Vaccine status: Patient reports receiving the 2nd dose of the covid vaccine. Ebola Screen: Patient negative for fever greater than or equal to 101.5 degrees Fahrenheit, and additional compatible Ebola Virus Disease symptoms Patient denies exposure to infectious person. Patient denies travel to an Ebola-affected area in the 21 days before illness onset. No symptoms or risks identified at this time. Initial Sepsis Screen: Does the patient meet any 2 criteria? No. Patient's initial sepsis screen is negative. Does the patient have a suspected source of infection? No. Patient's initial sepsis screen is negative. Risk Assessment: Do you want to hurt yourself or someone else? Patient reports no desire to harm self or others. Onset of symptoms was May 21, 2024. 11:50 Method Of Arrival: Ambulatory tm6 11:50 Acuity: MURRAY 4 tm6 Triage Assessment: 11:53 General: Appears in no apparent distress. uncomfortable, Behavior is calm, cooperative. tm6 Pain: Complains of pain in face, back and anterior aspect of right lateral abdomen Quality of pain is described as aching. EENT: Reports nasal congestion nasal discharge. Neuro: Level of Consciousness is awake, alert, obeys commands, Oriented to person, place, time, situation, Reports headache. Cardiovascular: Patient's skin is warm and dry. Respiratory: Reports cough that is pain with cough Airway is patent Respiratory effort is even, unlabored, Respiratory pattern is regular, symmetrical. GI: No signs and/or symptoms were reported involving the gastrointestinal system. Abdomen is round non-distended. : No signs and/or symptoms were reported regarding the genitourinary system. Derm: No signs and/or symptoms reported regarding the dermatologic system. Musculoskeletal: Reports pain in face, back and anterior aspect of right lateral abdomen. Historical: - Allergies: 11:53 Levaquin; tm6 11:53 PENICILLINS; tm6 - PMHx: 11:53 Arthritis; Diabetes - NIDDM; Kidney stones; Migraines; Vertigo; Fibromyalgia; tm6 - PSHx: 11:53 lithotropsy; section; tm6 - Immunization history:: Client reports receiving the 2nd dose of the Covid vaccine. - Infectious Disease History:: Denies. - Social history:: Smoking status: Patient reports the use of cigarette tobacco products, denies chronic smoking, but will smoke occasionally, Patient/guardian denies using alcohol. Screenin:[address] [facility] ED Fall Risk Assessment (Adult) History of falling in the last 3 months, iw including since admission No falls in past 3 months (0 pts) Confusion or Disorientation No (0 pts) Intoxicated or Sedated No (0 pts) Impaired Gait No (0 pts) Mobility Assist Device Used No (0 pt) Altered Elimination No (0 pt) Score/Fall Risk Level 0 - 2 = Low Risk Oriented to surroundings. Abuse screen: Denies threats or abuse. Denies injuries from another. Nutritional screening: On. Tuberculosis screening: No symptoms or risk factors identified. Assessment: 12:00 General: Appears in no apparent distress. Behavior is calm, cooperative. Pain: iw Complains of pain in back and face and anterior aspect of right lateral abdomen Pain does not radiate. Pain currently is 6 out of 10 on a pain scale. Quality of pain is described as Pain began. Neuro: Level of Consciousness is awake, alert, obeys commands, Oriented to person, place, time, situation, Reports headache. Cardiovascular: Patient's skin is warm and dry. Respiratory: Respiratory effort is even, unlabored, Respiratory pattern is regular. Vital Signs: 11:49 BP 123 / 79; Pulse 79; Resp 18; Temp 98.7(O); Pulse Ox 96% on R/A; Weight 77.11 kg; tm6 Height 5 ft. 2 in. ; Pain 8/10; 11:49 Body Mass Index 31.09 (77.11 kg, 157.48 cm) tm6 11:49 Pain Scale: Adult tm6 ED Course: 11:19 Patient arrived in ED. im 11:21 Allegra Paula MD is Attending Physician. sd2 11:53 Triage completed. tm6 11:53 Arm band placed on left wrist. tm6 12:16 Flu Sent. bc6 12:16 SARS RAPID Sent. bc6 12:16 COVID swab sent to lab. Flu and/or RSV swab sent to lab. 6 12:20 Katie Leong, RN is Primary Nurse. iw 12:36 No provider procedures requiring assistance completed. Patient did not have IV access iw during this emergency room visit. Patient maintains SpO2 saturation greater than 95% on room air. Administered Medications: 12:20 Drug: Ibuprofen PO 800 mg PO once Route: PO; iw 12:20 Follow up: Response: Medication Administered at Departure; Medication administered at iw discharge. 12:20 Drug: Amoxicillin-Clavulanate PO 875 mg PO once Route: PO; iw 12:20 Follow up: Response: Medication administered at discharge. iw Medication: 12:00 VIS not applicable for this client. iw Outcome: 12:14 Discharge ordered by . sd2 12:36 Discharged to home via wheelchair, iw 12:36 Condition: good 12:36 Discharge instructions given to patient, Instructed on discharge instructions, follow up and referral plans. medication usage, Demonstrated understanding of instructions, follow-up care, medications, Prescriptions given X 2, 12:37 Patient left the ED. iw Signatures: Katie Leong, RN RN iw Allegra Paula MD MD nm2 Lady Cordero 6 Tabitha Hernandes Malina Carpenter RN RN 6
--- NOTE | 2024-06-11 12:15 | EDPHYS ---
Physician Documentation [facility] Name: Della Carlson Age: 58 yrs Sex: Female : 1965 Arrival Date: 06/11/2024 Time: 11:16 Bed DX3 Private MD: ED Physician Allegra Paula HPI: 06/11 12:08 This 58 yrs old Female presents to ER via Ambulatory with complaints of Flu sd2 Symptoms, Chest Pain. 12:08 58-year-old female presents with chief complaint of flulike symptoms that have been sd2 ongoing for the past 3 weeks. She reports she initially started with left-sided sinus pain and headache. Reports she has been progressively worsening with productive cough and now body aches and subjective fever. She has been taking multiple OTC medications and an antibiotic from a [employer] store without improvement. . Historical: - Allergies: 11:53 Levaquin; tm6 11:53 PENICILLINS; tm6 - PMHx: 11:53 Arthritis; Diabetes - NIDDM; Kidney stones; Migraines; Vertigo; Fibromyalgia; tm6 - PSHx: 11:53 lithotropsy; section; tm6 - Immunization history:: Client reports receiving the 2nd dose of the Covid vaccine. - Infectious Disease History:: Denies. - Social history:: Smoking status: Patient reports the use of cigarette tobacco products, denies chronic smoking, but will smoke occasionally, Patient/guardian denies using alcohol. ROS: 12:08 Constitutional: Positive for fever. Negative for chills and weight loss. Eyes: sd2 Negative for injury, pain, redness, and discharge, 12:08 Cardiovascular: Negative for chest pain, palpitations, and edema, 12:08 Abdomen/GI: Negative for abdominal pain, nausea, vomiting, diarrhea. MS/Extremity: Negative for injury and deformity, Skin: Negative for injury, rash, and discoloration, 12:08 ENT: Positive for sinus congestion, sinus pain, Negative for injury or acute deformity, 12:08 Respiratory: Positive for cough, Negative for shortness of breath, wheezing, 12:08 Neuro: Positive for headache, Negative for numbness, weakness, Exam: 12:08 Constitutional: This is a well developed, well nourished patient who is awake, alert, sd2 and in no acute distress. Head/Face: Normocephalic, atraumatic. Eyes: EOMI, normal conjunctiva bilaterally ENT: Nares patent. No nasal discharge, no septal abnormalities noted. Left maxillary sinus tenderness noted. Oropharynx with no redness, swelling, or masses, exudates, or evidence of obstruction, uvula midline. Mucous membranes moist. Chest/axilla: Normal chest wall appearance and motion. Nontender with no deformity. Cardiovascular: Regular rate and rhythm with a normal S1 and S2. No gallops, murmurs, or rubs. 2+ distal pulses. Respiratory: Lungs have equal breath sounds bilaterally, clear to auscultation and percussion. No rales, rhonchi or wheezes noted. No increased work of breathing, no retractions or nasal flaring. Abdomen/GI: Soft, non-tender, with normal bowel sounds. No guarding or rebound. No evidence of tenderness throughout. Skin: Warm, dry with normal turgor. Normal color with no rashes, no lesions, and no evidence of cellulitis. MS/ Extremity: Pulses equal, no cyanosis. Neurovascular intact. Full, normal range of motion. Psych: Awake, alert, with orientation to person, place and time. Behavior, mood, and affect are within normal limits. Vital Signs: 11:49 BP 123 / 79; Pulse 79; Resp 18; Temp 98.7(O); Pulse Ox 96% on R/A; Weight 77.11 kg; tm6 Height 5 ft. 2 in. ; Pain 8/10; 11:49 Body Mass Index 31.09 (77.11 kg, 157.48 cm) tm6 11:49 Pain Scale: Adult tm6 MDM: 12:08 Differential diagnosis: Viral URI, sinusitis, tension headache, migraine headache, sd2 pneumonia among others. Data reviewed: vital signs, nurses notes. I considered the following discharge prescriptions or medication management in the emergency department Medications were administered in the Emergency Department. See MAR. Counseling: I had a detailed discussion with the patient and/or guardian regarding the historical points, exam findings, and any diagnostic results supporting the discharge/admit diagnosis, the need for outpatient follow up, to return to the emergency department if symptoms worsen or persist or if there are any questions or concerns that arise at home. ED course: Discussed with patient that her clinical signs and symptoms are consistent with sinusitis that we will likely need to be treated with antibiotics at this point due to the longstanding nature of her symptoms. I offered EKG, CXR and viral swabs but patient declined at this time after discussing benefits and risks of each. She is comfortable with a plan for antibitiotics and follow up outpatient with her PCP on Sunday. Verbalizes understanding of strict return precautions.. 12:14 Patient medically screened. sd2 06/11 11:57 Order name: SARS RAPID sd2 06/11 11:57 Order name: Flu sd2 Administered Medications: 12:20 Drug: Ibuprofen PO 800 mg PO once Route: PO; iw 12:20 Follow up: Response: Medication Administered at Departure; Medication administered at iw discharge. 12:20 Drug: Amoxicillin-Clavulanate PO 875 mg PO once Route: PO; iw 12:20 Follow up: Response: Medication administered at discharge. iw Disposition Summary: 06/11/24 12:14 Discharge Ordered Problem: new sd2 Symptoms: have improved sd2 Condition: Stable sd2 Diagnosis - Acute maxillary sinusitis sd2 - Rib pain sd2 Followup: sd2 - With: Private Physician - When: 2 - 3 days - Reason: Recheck today's complaints, Continuance of care, Re-evaluation by your physician Discharge Instructions: - Discharge Summary Sheet sd2 - Sinus Headache sd2 - Sinusitis, Adult sd2 - How to Perform a Sinus Rinse sd2 Forms: - Medication Reconciliation Form sd2 - Antibiotic Education sd2 - Prescription Opioid Use sd2 - Patient Portal Instructions sd2 - Leadership Thank You Letter sd2 Prescriptions: - Augmentin 875-125 mg Oral Tablet - take 1 tablet ORAL route every 12 hours for 10 days; 20 tablet; Refills: 0, sd2 Product Selection Permitted - Ibuprofen 800 mg Oral tablet - take 1 tablet ORAL route every 8 hours As needed take with food; 20 tablet; sd2 Refills: 0, Product Selection Permitted Signatures: Dispatcher [employer] Katie Ceballos RN RN Allegra Paula MD MD sd2 Malina Carpenter RN RN tm6
[2024-06-11] MEDS ORDERED: AMOX/K CLAV 875 MG TAB ONE (12:17)
[2024-06-11 12:44] LABS: SARS-CoV-2 Antigen CONTROL BLUE LINE VIS/BG OK; SARS-CoV-2 Antigen Rapid Res Negative (Negative)
[2024-06-11 12:53] VITALS: BP 123/79; TEMP 98.7; O2SAT 96
== END 2024-06-11 12:37 | disposition home or self-care (01) ==
LOC: ER 11:16
DX: J01.00 Acute maxillary sinusitis, unspecified (principal); R07.81 Pleurodynia; M79.7 Fibromyalgia; E11.9 Type 2 diabetes mellitus without complications; M19.90 Unspecified osteoarthritis, unspecified site; F17.210 Nicotine dependence, cigarettes, uncomplicated; Z88.0 Allergy status to penicillin; Z88.8 Allergy status to other drugs, medicaments and biological substances; Z11.52 Encounter for screening for COVID-19
CPT/HCPCS: 36415; 87804; 87811; 99283

== ENCOUNTER 2024-09-24 05:51 | Observation (INO) | payer OTHER ==
--- OUTSIDE RECORDS SUMMARY | 2024-09-24 05:54 | XMS REPORT | Continuity of Care Document ---
Author Name Unknown Address [address] [facility] [address] [place] [address] [facility] thconnect Address [address] 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 PLAN (INDEMNITY) [id number] Problems Condition Name Condition Details Condition Category Status Onset Date Resolution Date Last Treatment Date Treating Clinician Comments Source Cirrhosis of liver Cirrhosis of Liver Problem Active 2023-09 00:00: 00 [facility] Vitamin D deficiency Vitamin D Deficiency Problem Active 2023-09 00:00: 00 [facility] Imaging of liver abnormal Imaging of Liver Abnormal Problem Active 2023-09 00:00: 00 [facility] Hemoglobin A1c between 7%-9% indicating borderline diabetic control Hemoglobin a1C between 7%-9% Indicating Borderline Diabetic Control Problem Active 2024-1 2-03 00:00: 00 [facility] Calculus of kidney and ureter Calculus of Kidney and Ureter Problem Active 2023-09 2-03 00:00: 00 [facility] Body mass index 30+ - obesity Body Mass Index 30+ - Obesity Problem Active 2023-09 1-18 00:00: 00 [facility] Acute upper respirator y infection Acute Upper Respirator y Infection Problem Active 5-15 00:00: 00 [facility] Carpal tunnel syndrome Carpal Tunnel Syndrome Problem Active 4-24 00:00: 00 [facility] High risk human papillomav irus detected by cytology High Risk Human Papillomav irus Detected by Cytology Problem Active 3-21 00:00: 00 [facility] Microalbum inuria due to type 2 diabetes mellitus Microalbum inuria Due to Type 2 Diabetes Mellitus Problem Active 2-07 00:00: 00 [facility] Degenerati on of lumbar interverte bral disc Degenerati on of Lumbar Interverte bral Disc Problem Active 8-07 00:00: 00 [facility] Spinal stenosis in cervical region Spinal Stenosis in Cervical Region Problem Active 807 00:00: 00 [facility] Cervical radiculiti s Cervical Radiculiti s Problem Active 7- 00:00: 00 [facility] Noncomplia nce with treatment Noncomplia nce with Treatment Problem Active 7 00:00: 00 [facility] Right side sciatica Right Side Sciatica Problem Active 7- 00:00: 00 [facility] Diabetic peripheral neuropathy Diabetic Peripheral Neuropathy Problem Active 4-11 00:00: 00 [facility] Ex-smoker Ex-smoker Problem Active 3- 00:00: 00 [facility] COVID-19 Covid-19 Problem Active - 00:00: 00 [facility] Onychomyco sis Onychomyco sis Problem Active 8-10 00:00: 00 [facility] Increased liver function Increased Liver Function Problem Active 5-13 00:00: 00 [facility] Vertigo Vertigo Problem Active 9-11 00:00: 00 [facility] Diabetes mellitus Diabetes Mellitus Problem Active [facility] Hyperlipid emia Hyperlipid emia Problem Active [facility] Chest discomfort Chest Discomfort Problem Active [facility] Liver function tests outside reference range Liver Function Tests outside Reference Range Problem Active [facility] Inflammato ry polyarthro feli Inflammato ry Polyarthro feli Problem Active [facility] Fibromyalg ia Fibromyalg ia Problem Active [facility] Allergies, Adverse Reactions, Alerts Allergy Name Allergy Type Status Severity Reaction(s) Onset Date Inactive Date Treating Clinician Comments Source Levoflox acin Allergy to substanc e Active 2016-09 00:00: 00 [facility] PENICILL INS Allergy to substanc e Active Moderate severity Other [facility] Social History Smoking Status Start Date Stop Date Source Former Smoker [facility] Medications Ordered Medication Name Filled Medication Name Start Date Stop Date Current Medication? Ordering Clinician Indication Dosage Frequency Signature (SIG) Comments Components Source hydroxychlo roquine 200 mg tablet TAKE 1 TABLET BY MOUTH TWICE DAILY hydroxychlo roquine 200 mg tablet TAKE 1 TABLET BY MOUTH TWICE DAILY No hydroxychl oroquine 200 mg tablet TAKE 1 TABLET BY MOUTH TWICE DAILY [facility] lisinopril 5 mg tablet TAKE 1 TABLET BY MOUTH ONCE DAILY DIRECTED lisinopril 5 mg tablet TAKE 1 TABLET BY MOUTH ONCE DAILY DIRECTED No lisinopril 5 mg tablet TAKE 1 TABLET BY MOUTH ONCE DAILY DIRECTED [facility] pantoprazol e 40 mg tablet,sheba yed release TAKE 1 TABLET BY MOUTH ONCE DAILY pantoprazol e 40 mg tablet,sheba yed release TAKE 1 TABLET BY MOUTH ONCE DAILY No pantoprazo le 40 mg tablet,del ayed release TAKE 1 TABLET BY MOUTH ONCE DAILY [facility] meloxicam 15 mg tablet TAKE 1 TABLET BY MOUTH ONCE DAILY meloxicam 15 mg tablet TAKE 1 TABLET BY MOUTH ONCE DAILY No 1 Q1D meloxicam 15 mg tablet TAKE 1 TABLET BY MOUTH ONCE DAILY [facility] duloxetine 60 mg capsule,del ayed release TAKE 1 CAPSULE BY MOUTH ONCE DAILY duloxetine 60 mg capsule,del ayed release TAKE 1 CAPSULE BY MOUTH ONCE DAILY No duloxetine 60 mg capsule,de layed release TAKE 1 CAPSULE BY MOUTH ONCE DAILY [facility] ibuprofen 800 mg tablet TAKE ONE (1) TABLET(S) BY MOUTH EVERY EIGHT HOURS WITH FOOD NEEDED FOR PAIN. ibuprofen 800 mg tablet TAKE ONE (1) TABLET(S) BY MOUTH EVERY EIGHT HOURS WITH FOOD NEEDED FOR PAIN. No ibuprofen 800 mg tablet TAKE ONE (1) TABLET(S) BY MOUTH EVERY EIGHT HOURS WITH FOOD NEEDED FOR PAIN. [facility] Synjardy XR 12.5 mg-1,000 mg tablet, extended release Take 1 tablet every day by oral route for 42 days. Synjardy XR 12.5 mg-1,000 mg tablet, extended release Take 1 tablet every day by oral route for 42 days. No 1 Q1D Synjardy XR 12.5 mg-1,000 mg tablet, extended release Take 1 tablet every day by oral route for 42 days. [facility] Tresiba FlexTouch U-200 insulin 200 unit/mL (3 mL) subcutaneou s pen Inject 25 units every day by subcutaneou s route Tresiba FlexTouch U-200 insulin 200 unit/mL (3 mL) subcutaneou s pen Inject 25 units every day by subcutaneou s route No Tresiba FlexTouch U-200 insulin 200 unit/mL (3 mL) subcutaneo us pen Inject 25 units every day by subcutaneo us route [facility] meclizine 25 mg tablet Take 1 tablet 3 times a day by oral route as needed, for vertigo. meclizine 25 mg tablet Take 1 tablet 3 times a day by oral route as needed, for vertigo. No 1 TID meclizine 25 mg tablet Take 1 tablet 3 times a day by oral route as needed, for vertigo. [facility] Immunizations Ordered Immunization Name Filled Immunization Name Date Status Comments Source Non-US Vaccine COVID-19, Product Unknown Non-US Vaccine COVID-19, Product Unknown Unknown Completed [facility] Tdap Tdap Unknown Completed [facility] influenza, seasonal, injectable, preservative free influenza, seasonal, injectable, preservative free Unknown [facility] pneumococcal polysaccharide PPV23 pneumococcal polysaccharide PPV23 Unknown [facility] influenza, injectable, quadrivalent influenza, injectable, quadrivalent Unknown Completed [facility] Pneumococcal Conjugate, unspecified formulation Pneumococcal Conjugate, unspecified formulation Unknown [facility] Vital Signs Vital Name Observation Time Observation Value Comments S ource BP Diastolic 2024-09-04 00:00:00 79 [facility]Hg] [facility] BMI (Body Mass Index) 2024-09-04 00:00:00 31.9 kg/m2 [facility] BP Systolic 2024-09-04 00:00:00 124 mm[Hg] [facility] Height 2024-09-04 00:00:00 62 [in_i] Erin bhatta [facility] Body Weight 2024-09-04 00:00:00 174.6 [lb_av] [facility] BP Diastolic 2024-09-01 00:00:00 103 mm[Hg] [facility] Height 2024-09-01 00:00:00 62 [in_i] [facility] BP Systolic 2024-09-01 00:00:00 144 mm[Hg] Mora mar[facility] Body Weight 2024-08-26 00:00:00 2824 [oz_av] Jackson tagorda [facility] BP Systolic 2024-08-26 00:00:00 144 mm[Hg] Mora mar[facility] BP Diastolic 2024-08-26 00:00:00 87 mm[Hg] [facility] Height 2024-08-26 00:00:00 62 [in_i] [facility] BMI (Body Mass Index) 2024-08-26 00:00:00 32.3 kg/m2 [facility] BMI (Body Mass Index) 2024-02-06 00:00:00 30 kg/m2 [facility] BP Systolic 2024-02-06 00:00:00 128 mm[Hg] Mora [facility] Body Weight 2024-02-06 00:00:00 2628 [oz_av] Jackson cliffordorda [facility] Height 2024-02-06 00:00:00 62 [in_i] [facility] BP Diastolic 2024-02-06 00:00:00 79 mm[Hg] [facility] Height 2023-11-29 00:00:00 62 [in_i] [facility] BMI (Body Mass Index) 2023-10-31 00:00:00 30.5 kg/m2 [facility] BP Systolic 2023-10-31 00:00:00 125 mm[Hg] Mora mar[facility] BP Diastolic 2023-10-31 00:00:00 81 mm[Hg] [facility] Body Weight 2023-10-31 00:00:00 2672 [oz_av] Jackson tagorda [facility] Height 2023-10-31 00:00:00 62 [in_i] [facility] Height 2023-05-24 00:00:00 62 [in_i] [facility] BP Diastolic 2023-04-17 00:00:00 72 mm[Hg] [facility] Height 2023-04-17 00:00:00 62 [in_i] [facility] BMI (Body Mass Index) 2023-04-17 00:00:00 31.7 kg/m2 [facility] BP Systolic 2023-04-17 00:00:00 114 mm[Hg] Mora mar[facility] Body Weight 2023-04-17 00:00:00 2774 [oz_av] Jackson tagord[facility] BP Diastolic 2023-04-04 00:00:00 74 mm[Hg] [facility] Height 2023-04-04 00:00:00 62 [in_i] [facility] BMI (Body Mass Index) 2023-04-04 00:00:00 31.5 kg/m2 [facility] BP Systolic 2023-04-04 00:00:00 111 mm[Hg] Mora mar[facility] Body Weight 2023-04-04 00:00:00 2754 [oz_av] Jackson tagorda [facility] BP Diastolic 2022-03-13 00:00:00 75 mm[Hg] [facility] Height 2022-03-13 00:00:00 62 [in_i] [facility] BMI (Body Mass Index) 2022-03-13 00:00:00 32.4 kg/m2 [facility] BP Systolic 2022-03-13 00:00:00 124 mm[Hg] Mora mar[facility] Body Weight 2022-03-13 00:00:00 2832 [oz_av] Jackson tagord[facility] BP Diastolic 2022-01-02 00:00:00 80 mm[Hg] [facility] Height 2022-01-02 00:00:00 62 [in_i] [facility] BMI (Body Mass Index) 2022-01-02 00:00:00 33.6 kg/m2 [facility] BP Systolic 2022-01-02 00:00:00 124 mm[Hg] Mora mar[facility] Body Weight 2022-01-02 00:00:00 2936 [oz_av] Jackson tagorda [facility] Height 2021-07-19 00:00:00 62 [in_i] [facility] BP Diastolic 2021-07-16 00:00:00 78 mm[Hg] [facility] Height 2021-07-16 00:00:00 62 [in_i] [facility] BMI (Body Mass Index) 2021-07-16 00:00:00 32.3 kg/m2 [facility] BP Systolic 2021-07-16 00:00:00 118 mm[Hg] Mora mar[facility] Body Weight 2021-07-16 00:00:00 2822 [oz_av] Jackson tagorda [facility] Height 2020-12-24 00:00:00 62 [in_i] [facility] BMI (Body Mass Index) 2020-12-24 00:00:00 34.2 kg/m2 [facility] Body Weight 2020-12-24 00:00:00 2992 [oz_av] Jackson tagord[facility] Height 2020-12-13 00:00:00 62 [in_i] [facility] BMI (Body Mass Index) 2020-12-13 00:00:00 34.2 kg/m2 [facility] Body Weight 2020-12-13 00:00:00 2992 [oz_av] Jackson [facility] BP Diastolic 2020-05-03 00:00:00 76 mm[Hg] Pedro [facility] Height 2020-05-03 00:00:00 62 [in_i] [facility] BMI (Body Mass Index) 2020-05-03 00:00:00 34.2 kg/m2 [facility] BP Systolic 2020-05-03 00:00:00 136 mm[Hg] Mora mar[facility] Body Weight 2020-05-03 00:00:00 2992 [oz_av] Jackson [facility]ordorda [facility] BP Diastolic 2020-02-04 00:00:00 78 mm[Hg] Pedro [facility]ord[facility] Height 2020-02-04 00:00:00 62 [in_i] [facility] BMI (Body Mass Index) 2020-02-04 00:00:00 33.1 kg/m2 [facility] BP Systolic 2020-02-04 00:00:00 136 mm[Hg] Mora mar[facility] Body Weight 2020-02-04 00:00:00 181 [lb_av] Pedro [facility] Procedures Procedure Date / Time Performed Performing Clinicia n Source ELECTROCARDIOGRAM, COMPLETE 2024-09-01 00:00:00 [facility], abdomen + pelvis, w/o contrast 2024-08-26 00:00:00 [facility] MAMMO, screening, digital, bilateral 2023-10-31 00:00:00 [facility] MRI, cervical spine, w/o contrast 2023-04-04 00:00:00 [facility] MRI, lumbar spine, w/o contrast 2023-03-29 00:00:00 [facility] MAMMO, screening, digital, bilateral 2022-01-02 00:00:00 [facility] Delivery [facility] Fragmenting of Kidney Stone [facility] Tubal Ligation [facility] Encounters Start Date/Time End Date/Time Encounter Type Admission Type Attending [facility] Facility Care Department Encounter ID Source 2024-09-04 00:00:00 2024-09-04 00:00:00 Kostas Gordon MD: [place] [address] , [facility]. [facility] [id number] [facility] 2024-09-01 00:00:00 2024-09-01 00:00:00 Olivia Vieyra, TREE GIRDLER: [address] [place] [address] , Ph. [place] [phone] [id number] [facility] 2024-08-26 00:00:00 2024-08-26 00:00:00 Olivia Vieyra, TREE GIRDLER: [address] [place] [address] , Ph. [place] [phone] [id number] [facility] 2024-02-06 00:00:00 2024-02-06 00:00:00 Cara Monterroso, TREE GIRDLER: [address] [place] [address] , Ph. [facility] [phone] 0515 [facility] 2023-12-26 00:00:00 2023-12-26 00:00:00 Outpatient NOHELIA MENDEZ [facility] [id number] [facility] 2023-12-18 00:00:00 2023-12-18 00:00:00 Outpatient NOHELIA MENDEZ [facility] [id number] [facility] 2023-12-17 00:00:00 2023-12-17 00:00:00 Outpatient SHIMEK_OLIVIA MENDEZ [facility] [id number] [facility] 2023-12-06 00:00:00 2023-12-06 00:00:00 Outpatient SHIMEK_OLIVIA MENDEZ [facility] [id number] [facility] 2023-11-29 00:00:00 2023-11-29 00:00:00 Outpatient SHIMEK_OLIVIA _GLORIA [facility] [id number] [facility] 2023-11-29 00:00:00 2023-11-29 00:00:00 Olivia Vieyra, TREE GIRDLER: [address] [place] [address] , Ph. [facility] [place] [phone] [facility] 2023-11-28 00:00:00 2023-11-28 00:00:00 Outpatient SHIMEK_OLIVIA MENDEZ [facility] [id number] [facility] 2023-11-16 00:00:00 2023-11-16 00:00:00 Outpatient SHIMEK_OLIVIA CifuentesANN [facility] [id number] [facility] 2023-11-08 00:00:00 2023-11-08 00:00:00 Outpatient SHIMEK_OLIVIA CifuentesANN [facility] [id number] [facility] 2023-11-02 00:00:00 2023-11-02 00:00:00 Outpatient SHIMEK_OLIVIA MENDEZ [facility] [id number] [facility] 2023-10-31 00:00:00 2023-10-31 00:00:00 Outpatient SHIMEK_OLIVIA _ANN [place] [id number] [facility] 2023-10-31 00:00:00 2023-10-31 00:00:00 Olivia Vieyra, TREE GIRDLER: [place] [address] , Ph. [facility] 3 [phone] [facility] 2023-05-25 00:00:00 2023-05-25 00:00:00 Outpatient SHIMEK_OLIVIA MENDEZ [facility] [id number] [facility] 2023-05-25 00:00:00 2023-05-25 00:00:00 Outpatient SHIMEK_OLIVIA MENDEZ [facility] [id number] [facility] 2023-05-25 00:00:00 2023-05-25 00:00:00 Outpatient SHIMEK_OLIVIA MENDEZ [facility] [id number] [facility] 2023-05-24 00:00:00 2023-05-24 00:00:00 Outpatient SHIMEK_OLIVIA MENDEZ [facility] [id number] [facility] 2023-05-24 00:00:00 2023-05-24 00:00:00 Olivia Vieyra, TREE GIRDLER: [address] [address] , Ph. [facility] 3 [phone] [facility] 2023-04-17 00:00:00 2023-04-17 00:00:00 Outpatient SHIMEKNIYA MENDEZ [facility] [id number] [facility] 2023-04-17 00:00:00 2023-04-17 00:00:00 Outpatient SHIMEK_OLIVIA MENDEZ [place] [id number] [facility] 2023-04-17 00:00:00 2023-04-17 00:00:00 Olivia Vieyra, TREE GIRDLER: [address] [address] , Ph. [facility] [phone] [facility] 2023-04-10 00:00:00 2023-04-10 00:00:00 Outpatient SHIMEK_OLIVIA MENDEZ [facility] [id number] [facility] 2023-04-04 00:00:00 2023-04-04 00:00:00 Outpatient SHIMEKNIYA MENDEZ [facility] [id number] [facility] 2023-04-04 00:00:00 2023-04-04 00:00:00 Outpatient SHIMCRISSYNIYA MENDEZ [facility] [id number] [facility] 2023-04-04 00:00:00 2023-04-04 00:00:00 Olivia Vieyra, TREE GIRDLER: [address] [address] , Ph. [facility] [place] [id number] [facility] 2023-04-03 00:00:00 2023-04-03 00:00:00 Outpatient SHIMEK_OLIVIA MENDEZ [facility] [id number] [facility] 2023-03-29 00:00:00 2023-03-29 00:00:00 Outpatient SHIMEK_OLIVIA MENDEZ [facility] [id number] [facility] 2023-03-29 00:00:00 2023-03-29 00:00:00 Outpatient SHIMEK_OLIVIA MENDEZ [facility] [id number] [facility] 2023-03-29 00:00:00 2023-03-29 00:00:00 Outpatient OKEKNIYA MENDEZ [facility] [id number] [facility] 2023-03-29 00:00:00 2023-03-29 00:00:00 Olivia Vieyra, TREE GIRDLER: [place] [address] , Ph. [facility] 3 [phone] [facility] 2022-09-17 00:00:00 2022-09-17 00:00:00 Outpatient NIKKINIYA MENDEZ [facility] [id number] [facility] 2022-09-17 00:00:00 2022-09-17 00:00:00 Outpatient OKCRISSYNIYA MENDEZ [facility] [id number] [facility] 2022-09-17 00:00:00 2022-09-17 00:00:00 Outpatient NOHELIA MENDEZ [facility] [id number] [facility] 2022-09-17 00:00:00 2022-09-17 00:00:00 Outpatient NIKKINIYA MENDEZ [facility] [id number] [facility] 2022-03-18 00:00:00 2022-03-18 00:00:00 Outpatient NIKKINIYA MENDEZ [facility] [id number] [facility] 2022-03-13 00:00:00 2022-03-13 00:00:00 Olivia Vieyra, TREE GIRDLER: [address] [address] , Ph. [facility] [id number] [facility] 2022-01-02 00:00:00 2022-01-02 00:00:00 Olivia Vieyra, TREE GIRDLER: [place] [address] , Ph. SHELLEYOLIVIA MENDEZ [facility] [place] [facility] [id number] [id number] [facility] 2021-12-30 06:19:00 2021-12-30 06:19:00 Outpatient SHIMEK_OLIVIA MENDEZ [facility] [id number] [facility] Program 2021-11-14 09:59:00 2021-11-14 09:59:00 Outpatient OKEK_OLIVIA MENDEZ [facility] [id number] [id number] [facility] 2021-08-29 12:16:00 2021-08-29 12:16:00 Outpatient SHIMEK_OLIVIA MENDEZ [facility] [id number] 1206 [facility] 2021-08-23 09:21:00 2021-08-23 09:21:00 Outpatient SHIMEK_OLIVIA MENDEZ [facility] [id number] [id number] [facility] 2021-08-22 03:09:00 2021-08-22 03:09:00 Outpatient SHIMEK_OLIVIA MENDEZ [facility] [id number] [facility] 2021-07-19 00:00:00 2021-07-19 00:00:00 Olivia Vieyra, TREE GIRDLER: [place] [address] , Ph. SHELLEYOLIVIA MENDEZ [facility] [place] [facility] [id number] 1026 [facility] 2021-07-16 00:00:00 2021-07-16 00:00:00 Olivia Vieyra, TREE GIRDLER: [place] [address] , Ph. NIKKINIYA MENDEZ [facility] [phone] 1023 [facility] 2021-01-03 05:08:00 2021-01-03 05:08:00 Outpatient SHIMEK_OLIVIA MENDEZ [facility] [id number] [facility] 2020-12-25 07:57:00 2020-12-25 07:57:00 Outpatient SHIMEK_OLIVIA MENDEZ [facility] [id number] [id number] [facility] 2020-12-24 00:00:00 2020-12-24 00:00:00 Rajni Nguyen, TREE GIRDLER: [place] [address] , Ph. SHELLEYOLIVIA MENDEZ [facility] 0402 [facility] 2020-12-20 01:11:00 2020-12-20 01:11:00 Outpatient SHELLEYOLIVIA MENDEZ [facility] [id number] [id number] [facility] 2020-12-13 00:00:00 2020-12-13 00:00:00 Olivia Vieyra, TREE GIRDLER: [address] [address] , Ph. SHELLEYOLIVIA MENDEZ [facility] [place] [phone] 0322 [facility] 2020-12-07 04:49:00 2020-12-07 04:49:00 Outpatient SHIMEK_OLIVIA MENDEZ [facility] [id number] [id number] [facility] 2020-12-02 01:13:00 2020-12-02 01:13:00 Outpatient NOHELIA MENDEZ [place] [id number] [facility] 2020-06-03 01:32:00 2020-06-03 01:32:00 Outpatient NOHELIA MENDEZ [place] [id number] [facility] 2020-05-03 00:00:00 2020-05-03 00:00:00 Olivia Vieyra, TREE GIRDLER: [address] [place] [phone] , Ph. NIKKINIYA MENDEZ [facility] 0810 [facility] 2020-04-29 12:35:00 2020-04-29 12:35:00 Outpatient OKCRISSYNIYA MENDEZ [place] [id number] [facility] 2020-02-04 00:00:00 2020-02-04 00:00:00 Olivia Vieyra, TREE GIRDLER: [address] [phone] , Ph. SHELLEYOLIVIA MENDEZ [place] [phone] [facility] Results Test Description Test Time Test Comments Results Result Co mments Source [facility] ProgramCB W Auto Differential panel - Blood 2024-09-02 00:00:00* Test Item Value Reference Range Interpretation Comme nts Leukocytes [#/volume] in Blo od by Automated count (test code = 6690-2) 8.7 x10e3/uL 3.4-10.8 Erythrocytes [#/volume] in Blood by Automated count (test code = 789-8) 4.74 x10e6/uL 3.77-5.28 Hemoglobin [Mass/volume] in Blood (test code = 718-7) 16.2 g/dL 11.1-15.9 H Hematocrit [Volume Fraction] of Blood by Automated count (test code = 4544-3) 46.2 % 34.0-46.6 MCV [Entitic volume] by Automated count (test code = 787-2) 98 fL 79-97 H MCH [Entitic mass] by Automa leighann count (test code = 785-6) 34.2 pg 26.6-33.0 H MCHC [Mass/volume] by Automa leighann count (test code = 786-4) 35.1 g/dL 31.5-35.7 Erythrocyte distribution wid th [Ratio] by Automated count (test code = 788-0) 12.1 % 11.7-15.4 Platelets [#/volume] in Bloo d by Automated count (test code = 777-3) 183 x10e3/uL 150-450 Neutrophils/100 leukocytes i n Blood by Automated count (test code = 770-8) 50 % not estab. Lymphocytes/100 leukocytes i n Blood by Automated count (test code = 736-9) 39 % not estab. Monocytes/100 leukocytes in Blood by Automated count (test code = 5905-5) 9 % not estab. Eosinophils/100 leukocytes i n Blood by Automated count (test code = 713-8) 1 % not estab. Basophils/100 leukocytes in Blood by Automated count (test code = 706-2) 1 % not estab. immature cells (test code = immature cells) TREE GIRDLER Neutrophils [#/volume] in Bl ood by Automated count (test code = 751-8) 4.3 x10e3/uL 1.4-7.0 Lymphocytes [#/volume] in Bl ood by Automated count (test code = 731-0) 3.4 x10e3/uL 0.7-3.1 H Monocytes [#/volume] in Bloo d by Automated count (test code = 742-7) 0.8 x10e3/uL 0.1-0.9 Eosinophils [#/volume] in Bl ood by Automated count (test code = 711-2) 0.1 x10e3/uL 0.0-0.4 Basophils [#/volume] in Bloo d by Automated count (test code = 704-7) 0.0 x10e3/uL 0.0-0.2 Immature granulocytes/100 leukocytes in Blood by Automated count (test code = 67647-3) 0 % not estab. Immature granulocytes [#/volume] in Blood by Automated count (test code = 78099-5) 0.0 x10e3/uL 0.0-0.1 Nucleated erythrocytes/100 leukocytes [Ratio] in Blood by Automated count (test code = 60757-6) TREE GIRDLER Morphology [Interpretation] in Blood Narrative (test code = 80988-7) [facility] [employer] ProgramComprehensive metabolic 2000 panel - Serum or [id number] 00:00:00* Test Item Value Reference Range Interpretation Comme nts Glucose [Mass/volume] in Ser um or Plasma (test code = 2345-7) 247 mg/dL 70-99 H Urea nitrogen [Mass/volume] in Serum or Plasma (test code = 3094-0) 14 mg/dL 8-27 Creatinine [Mass/volume] in Serum or Plasma (test code = 2160-0) 0.75 mg/dL 0.57-1.00 Glomerular filtration rate/1.73 sq M.predicted [Volume Rate/Area] in Serum, Plasma or Blood by Creatinine-based formula (CKD-EPI 2020) (test code = 32267-1) 91 mL/min/1.73 >59 Urea nitrogen/Creatinine [Ma ss Ratio] in Serum or Plasma (test code = 3097-3) 19 12-28 Sodium [Moles/volume] in Ser um or Plasma (test code = 2951-2) 137 mmol/L 134-144 Potassium [Moles/volume] in Serum or Plasma (test code = 2823-3) 4.9 mmol/L 3.5-5.2 Chloride [Moles/volume] in Serum or Plasma (test code = 2075-0) 99 mmol/L 96-106 Carbon dioxide, total [Moles/volume] in Serum or Plasma (test code = 2027-9) 19 mmol/L 20-29 L Calcium [Mass/volume] in Ser um or Plasma (test code = 80656-7) 9.9 mg/dL 8.7-10.3 Protein [Mass/volume] in Ser um or Plasma (test code = 2885-2) 7.7 g/dL 6.0-8.5 Albumin [Mass/volume] in Ser um or Plasma (test code = 1751-7) 4.8 g/dL 3.9-4.9 Globulin [Mass/volume] in Serum by calculation (test code = 87500-6) 2.9 g/dL 1.5-4.5 Bilirubin.total [Mass/volume ] in Serum or Plasma (test code = 1975-2) 0.8 mg/dL 0.0-1.2 Alkaline phosphatase [Enzymatic activity/volume] in Serum or Plasma (test code = 6768-6) 92 IU/L 44-121 Aspartate aminotransferase [Enzymatic activity/volume] in Serum or Plasma (test code = 1920-8) 34 IU/L 0-40 Alanine aminotransferase [Enzymatic activity/volume] in Serum or Plasma (test code = 1742-6) 45 IU/L 0-32 H [facility] - [facility] or Plasma 2024-09-02 00:00:00* Test Item Value Reference Range Interpretation Comme nts Cholesterol [Mass/volume] in Serum or Plasma (test code = 2093-3) 209 mg/dL 100-199 H Triglyceride [Mass/volume] i n Serum or Plasma (test code = 2571-8) 301 mg/dL 0-149 H Cholesterol in HDL [Mass/vol ume] in Serum or Plasma (test code = 2085-9) 30 mg/dL >39 L Cholesterol in VLDL [Mass/vo lume] in Serum or Plasma by calculation (test code = 51695-9) 54 mg/dL 5-40 H Cholesterol in LDL [Mass/vol ume] in Serum or Plasma by calculation (test code = 59965-1) 125 mg/dL 0-99 H LDL calc comment: (test code = LDL calc comment:) TREE GIRDLER [facility]/Hemoglobin.total in [id number] 00:00:00* Test Item Value Reference Range Interpretation Comme nts Hemoglobin A1c/Hemoglobin.to yolette in Blood (test code = 4548-4) 8.9 % 4.8-5.6 H Glucose mean value [Mass/vol ume] in Blood Estimated from glycated hemoglobin (test code = 55341-6) 209 mg/dL [facility]-Hydroxyvitamin D3+25- Hydroxyvitamin D2 [Mass/volume] in Serum or [id number] 00:00:00* Test Item Value Reference Range Interpretation Comme nts 25-Hydroxyvitamin D3+25-Hydroxyvitamin D2 [Mass/volume] in Serum or Plasma (test code = 19259-7) 15.7 NG/mL 30.0-100.0 L [facility] [id number] 00:00:00* Test Item Value Reference Range Interpretation Comme nts pdf (test code = pdf) Not applicable [facility] [id number] 00:00:00* Test Item Value Reference Range Interpretation Comme nts Interpretation and review of laboratory results (test code = 60359-5) Note [facility] identified in Urine by [id number] 00:00:00* Test Item Value Reference Range Interpretation Comme nts Bacteria identified in Urine by Culture (test code = 630-4) COMMENT [facility]urinalysis, [id number] 14:48:00* Test Item Value Reference Range Interpretation Comme nts Leukocytes (test code = Leukocytes) neg Nitrite (test code = Nitrite) neg Urobilinogen (test code = Urobilinogen) 3.5 umol/L Protein (test code = Protein) 0.15 g/L pH (test code = pH) 6.0 Blood (test code = Blood) 25 Jethro/uL Specific [place] (test code = Specific [place]) 1.015 Ketone (test code = Ketone) neg Bilirubin (test code = Bilirubin) neg Glucose (test code = Glucose) 60 mmol/L Appearance (test code = Appearance) clear Color (test code = Color) yellow [facility] group A, [id number] 16:25:00* Test Item Value Reference Range Interpretation Comme nts Strep (test code = Strep) negative [facility] TSH panel - Serum or [id number] 00:00:00* Test Item Value Reference Range Interpretation Comme nts Thyrotropin [Units/volume] i n Serum or Plasma by Detection limit <= 0.005 mIU/L (test code = 82039-3) 2.800 uIU/mL 0.450-4.500 Thyroxine (T4) free [Mass/volume] in Serum or Plasma (test code = 3024-7) 1.22 NG/dL 0.82-1.77 [facility] W Auto Differential panel - Blood 2023-11-23 00:00:00* Test Item Value Reference Range Interpretation Comme nts Leukocytes [#/volume] in Blo od by Automated count (test code = 6690-2) 6.8 x10e3/uL 3.4-10.8 Erythrocytes [#/volume] in Blood by Automated count (test code = 789-8) 4.59 x10e6/uL 3.77-5.28 Hemoglobin [Mass/volume] in Blood (test code = 718-7) 15.1 g/dL 11.1-15.9 Hematocrit [Volume Fraction] of Blood by Automated count (test code = 4544-3) 45.0 % 34.0-46.6 MCV [Entitic volume] by Automated count (test code = 787-2) 98 fL 79-97 H MCH [Entitic mass] by Automa leighann count (test code = 785-6) 32.9 pg 26.6-33.0 MCHC [Mass/volume] by Automa leighann count (test code = 786-4) 33.6 g/dL 31.5-35.7 Erythrocyte distribution wid th [Ratio] by Automated count (test code = 788-0) 11.6 % 11.7-15.4 L Platelets [#/volume] in Bloo d by Automated count (test code = 777-3) 156 x10e3/uL 150-450 Neutrophils/100 leukocytes i n Blood by Automated count (test code = 770-8) 38 % not estab. Lymphocytes/100 leukocytes i n Blood by Automated count (test code = 736-9) 50 % not estab. Monocytes/100 leukocytes in Blood by Automated count (test code = 5905-5) 7 % not estab. Eosinophils/100 leukocytes i n Blood by Automated count (test code = 713-8) 4 % not estab. Basophils/100 leukocytes in Blood by Automated count (test code = 706-2) 1 % not estab. immature cells (test code = immature cells) inpatient services rn Neutrophils [#/volume] in Bl ood by Automated count (test code = 751-8) 2.6 x10e3/uL 1.4-7.0 Lymphocytes [#/volume] in Bl ood by Automated count (test code = 731-0) 3.4 x10e3/uL 0.7-3.1 H Monocytes [#/volume] in Bloo d by Automated count (test code = 742-7) 0.5 x10e3/uL 0.1-0.9 Eosinophils [#/volume] in Bl ood by Automated count (test code = 711-2) 0.3 x10e3/uL 0.0-0.4 Basophils [#/volume] in Bloo d by Automated count (test code = 704-7) 0.1 x10e3/uL 0.0-0.2 Immature granulocytes/100 leukocytes in Blood by Automated count (test code = 75530-7) 0 % not estab. Immature granulocytes [#/volume] in Blood by Automated count (test code = 37925-9) 0.0 x10e3/uL 0.0-0.1 Nucleated erythrocytes/100 leukocytes [Ratio] in Blood by Automated count (test code = 61485-4) inpatient services rn Morphology [Interpretation] in Blood Narrative (test code = 08908-3) [facility] r[facility]Com[facility] 2000 panel - Serum or [id number] 00:00:00* Test Item Value Reference Range Interpretation Comme nts Glucose [Mass/volume] in Serum or Plasma (test code = 2345-7) 273 mg/dL 70-99 H Urea nitrogen [Mass/volume] in Serum or Plasma (test code = 3094-0) 14 mg/dL 8-27 Creatinine [Mass/volume] in Serum or Plasma (test code = 2160-0) 0.51 mg/dL 0.57-1.00 L Glomerular filtration rate/1.73 sq M.predicted [Volume Rate/Area] in Serum, Plasma or Blood by Creatinine-based formula (CKD-EPI 2020) (test code = 96150-2) 107 mL/min/1.73 >59 Urea nitrogen/Creatinine [Mass Ratio] in Serum or Plasma (test code = 3097-3) 27 12-28 Sodium [Moles/volume] in Serum or Plasma (test code = 2951-2) 141 mmol/L 134-144 Potassium [Moles/volume] in Serum or Plasma (test code = 2823-3) 4.1 mmol/L 3.5-5.2 Chloride [Moles/volume] in Serum or Plasma (test code = 5-0) 102 mmol/L 96-106 Carbon dioxide, total [Moles/volume] in Serum or Plasma (test code = 2027-) 23 mmol/L 20-29 Calcium [Mass/volume] in Serum or Plasma (test code = 63034-7) 9.1 mg/dL 8.7-10.3 Protein [Mass/volume] in Serum or Plasma (test code = 2885-2) 6.8 g/dL 6.0-8.5 Albumin [Mass/volume] in Serum or Plasma (test code = 1751-7) 4.3 g/dL 3.8-4.9 Globulin [Mass/volume] in Serum by calculation (test code = 41572-3) 2.5 g/dL 1.5-4.5 Albumin/Globulin [Mass Ratio ] in Serum or Plasma (test code = 1759-0) 1.7 1.2-2.2 Bilirubin.total [Mass/volume ] in Serum or Plasma (test code = 1974-) 0.6 mg/dL 0.0-1.2 Alkaline phosphatase [Enzymatic activity/volume] in Serum or Plasma (test code = 6768-6) 126 IU/L 44-121 H Aspartate aminotransferase [Enzymatic activity/volume] in Serum or Plasma (test code = 1920-8) 36 IU/L 0-40 Alanine aminotransferase [Enzymatic activity/volume] in Serum or Plasma (test code = 1742-6) 55 IU/L 0-32 H [facility] - [facility] or Plasma 2023-11-23 00:00:00* Test Item Value Reference Range Interpretation Comme nts Cholesterol [Mass/volume] in Serum or Plasma (test code = 2093-3) 210 mg/dL 100-199 H Triglyceride [Mass/volume] i n Serum or Plasma (test code = 2571-8) 206 mg/dL 0-149 H Cholesterol in HDL [Mass/vol ume] in Serum or Plasma (test code = 2085-9) 32 mg/dL >39 L Cholesterol in VLDL [Mass/vo lume] in Serum or Plasma by calculation (test code = 55131-6) 37 mg/dL 5-40 Cholesterol in LDL [Mass/vol ume] in Serum or Plasma by calculation (test code = 57245-8) 141 mg/dL 0-99 H Laboratory comment [Text] in Report Narrative (test code = 95851-1) inpatient services rn [facility] ProgramMicroalbumin/Creatinine [Mass Ratio] in [id number] 00:00:00* Test Item Value Reference Range Interpretation Comme nts Creatinine [Mass/volume] in Urine (test code = 2161-8) 91.5 mg/dL not estab. Microalbumin [Mass/volume] i n Urine (test code = 42747-9) 8.9 ug/mL not estab. Albumin/Creatinine [Mass Rat io] in Urine (test code = 9318-7) 10 mg/g creat 0-29 [facility] ProgramHemoglobin A1c/Hemoglobin.total in Tisoz4031-77-90 00:00:00* Test Item Value Reference Range Interpretation Comme nts Hemoglobin A1c/Hemoglobin.to yolette in Blood (test code = 4548-4) 10.2 % 4.8-5.6 H Glucose mean value [Mass/vol ume] in Blood Estimated from glycated hemoglobin (test code = 14873-3) 246 mg/dL [facility] Programcardiovascular [id number] 00:00:00* Test Item Value Reference Range Interpretation Comme nts Interpretation and review of laboratory results (test code = 51279-3) note Report (test code = 72747-2) . [facility] Programdiabetes patient [id number] 00:00:00* Test Item Value Reference Range Interpretation Comme nts pdf (test code = pdf) not applicable [facility], [id number] 13:17:00* Test Item Value Reference Range Interpretation Comme nts Strep (test code = Strep) negative [facility] HospitalHemoglobin.gastrointestinal.lower [Presence] in Stool by Idqnqdwnuro9995-04-47 00:00:00* Test Item Value Reference Range Interpretation Comme nts Hemoglobin.gastrointestinal. lower [Presence] in Stool by Immunoassay (test code = 75991-9) negative negative [facility] T[facility] and TSH panel - Serum or [id number] 00:00:00* Test Item Value Reference Range Interpretation Comme nts Thyrotropin [Units/volume] i n Serum or Plasma by Detection limit <= 0.005 mIU/L (test code = 22725-1) 3.340 uIU/mL 0.450-4.500 Thyroxine (T4) free [Mass/volume] in Serum or Plasma (test code = 3024-7) 1.25 NG/dL 0.82-1.77 [facility] W Auto Differential panel - Blood 2023-03-30 00:00:00* Test Item Value Reference Range Interpretation Comme nts Leukocytes [#/volume] in Blo od by Automated count (test code = 6690-2) 6.5 x10e3/uL 3.4-10.8 Erythrocytes [#/volume] in Blood by Automated count (test code = 789-8) 4.74 x10e6/uL 3.77-5.28 Hemoglobin [Mass/volume] in Blood (test code = 718-7) 15.7 g/dL 11.1-15.9 Hematocrit [Volume Fraction] of Blood by Automated count (test code = 4544-3) 45.3 % 34.0-46.6 Erythrocyte mean corpuscular volume [Entitic volume] by Automated count (test code = 787-2) 96 fL 79-97 Erythrocyte mean corpuscular hemoglobin [Entitic mass] by Automated count (test code = 785-6) 33.1 pg 26.6-33.0 H Erythrocyte mean corpuscular hemoglobin concentration [Mass/volume] by Automated count (test code = 786-4) 34.7 g/dL 31.5-35.7 Erythrocyte distribution wid th [Ratio] by Automated count (test code = 788-0) 11.3 % 11.7-15.4 L Platelets [#/volume] in Bloo d by Automated count (test code = 777-3) 197 x10e3/uL 150-450 Neutrophils/100 leukocytes i n Blood by Automated count (test code = 770-8) 39 % not estab. Lymphocytes/100 leukocytes i n Blood by Automated count (test code = 736-9) 49 % not estab. Monocytes/100 leukocytes in Blood by Automated count (test code = 5905-5) 8 % not estab. Eosinophils/100 leukocytes i n Blood by Automated count (test code = 713-8) 3 % not estab. Basophils/100 leukocytes in Blood by Automated count (test code = 706-2) 1 % not estab. immature cells (test code = immature cells) inpatient services rn Neutrophils [#/volume] in Bl ood by Automated count (test code = 751-8) 2.6 x10e3/uL 1.4-7.0 Lymphocytes [#/volume] in Bl ood by Automated count (test code = 731-0) 3.2 x10e3/uL 0.7-3.1 H Monocytes [#/volume] in Bloo d by Automated count (test code = 742-7) 0.5 x10e3/uL 0.1-0.9 Eosinophils [#/volume] in Bl ood by Automated count (test code = 711-2) 0.2 x10e3/uL 0.0-0.4 Basophils [#/volume] in Bloo d by Automated count (test code = 704-7) 0.1 x10e3/uL 0.0-0.2 Immature granulocytes/100 leukocytes in Blood by Automated count (test code = 51149-1) 0 % not estab. Immature granulocytes [#/volume] in Blood by Automated count (test code = 92859-9) 0.0 x10e3/uL 0.0-0.1 Nucleated erythrocytes/100 leukocytes [Ratio] in Blood by Automated count (test code = 92113-9) inpatient services rn Morphology [Interpretation] in Blood Narrative (test code = 79873-1) inpatient services rn [facility] Outreach ProgramComprehensive metabolic 2000 panel - Serum or [id number] 00:00:00* Test Item Value Reference Range Interpretation Comme nts Glucose [Mass/volume] in Serum or Plasma (test code = 2345-7) 227 mg/dL 70-99 H Urea nitrogen [Mass/volume] in Serum or Plasma (test code = 3094-0) 14 mg/dL 6-24 Creatinine [Mass/volume] in Serum or Plasma (test code = 2160-0) 0.57 mg/dL 0.57-1.00 Glomerular filtration rate/1.73 sq M.predicted [Volume Rate/Area] in Serum, Plasma or Blood by Creatinine-based formula (CKD-EPI 2020) (test code = 61269-5) 105 mL/min/1.73 >59 Urea nitrogen/Creatinine [Mass Ratio] in Serum or Plasma (test code = 3097-3) 25 9-23 H Sodium [Moles/volume] in Serum or Plasma (test code = 2951-2) 138 mmol/L 134-144 Potassium [Moles/volume] in Serum or Plasma (test code = 2823-3) 4.7 mmol/L 3.5-5.2 Chloride [Moles/volume] in Serum or Plasma (test code = 207-0) 100 mmol/L 96-106 Carbon dioxide, total [Moles/volume] in Serum or Plasma (test code = 2027-) 22 mmol/L 20-29 Calcium [Mass/volume] in Serum or Plasma (test code = 07244-2) 9.6 mg/dL 8.7-10.2 Protein [Mass/volume] in Serum or Plasma (test code = 2885-2) 7.1 g/dL 6.0-8.5 Albumin [Mass/volume] in Serum or Plasma (test code = 1751-7) 4.6 g/dL 3.8-4.9 Globulin [Mass/volume] in Serum by calculation (test code = 54780-2) 2.5 g/dL 1.5-4.5 Albumin/Globulin [Mass Ratio ] in Serum or Plasma (test code = 1759-0) 1.8 1.2-2.2 Bilirubin.total [Mass/volume ] in Serum or Plasma (test code = 1974-) 0.5 mg/dL 0.0-1.2 Alkaline phosphatase [Enzymatic activity/volume] in Serum or Plasma (test code = 6768-6) 138 IU/L 44-121 H Aspartate aminotransferase [Enzymatic activity/volume] in Serum or Plasma (test code = 1920-8) 30 IU/L 0-40 Alanine aminotransferase [Enzymatic activity/volume] in Serum or Plasma (test code = 1742-6) 37 IU/L 0-32 H [facility] - [facility] or Plasma 2023-03-30 00:00:00* Test Item Value Reference Range Interpretation Comme nts Cholesterol [Mass/volume] in Serum or Plasma (test code = 2093-3) 222 mg/dL 100-199 H Triglyceride [Mass/volume] i n Serum or Plasma (test code = 2571-8) 183 mg/dL 0-149 H Cholesterol in HDL [Mass/vol ume] in Serum or Plasma (test code = 2085-9) 43 mg/dL >39 Cholesterol in VLDL [Mass/vo lume] in Serum or Plasma by calculation (test code = 78580-7) 33 mg/dL 5-40 Cholesterol in LDL [Mass/vol ume] in Serum or Plasma by calculation (test code = 18519-3) 146 mg/dL 0-99 H Laboratory comment [Text] in Report Narrative (test code = 75694-2) inpatient services rn [facility] ProgramMicroalbumin/Creatinine [Mass Ratio] in [id number] 00:00:00* Test Item Value Reference Range Interpretation Comme nts Creatinine [Mass/volume] in Urine (test code = 2161-8) 36.0 mg/dL not estab. Microalbumin [Mass/volume] i n Urine (test code = 84952-3) 21.2 ug/mL not estab. Albumin/Creatinine [Mass rat io] in Urine (test code = 9318-7) 59 mg/g creat 0-29 H [facility] HospitalHem[facility] A1c/Hemoglobin.total in Iazxa7699-78-28 00:00:00* Test Item Value Reference Range Interpretation Comme nts Hemoglobin A1c/Hemoglobin.to yolette in Blood (test code = 4548-4) 8.4 % 4.8-5.6 H Glucose mean value [Mass/vol ume] in Blood Estimated from glycated hemoglobin (test code = 50805-3) 194 mg/dL [facility] Programcardiovascular [id number] 00:00:00* Test Item Value Reference Range Interpretation Comme nts Interpretation and review of laboratory results (test code = 33071-0) note Report (test code = 58556-3) . [facility] [id number] 00:00:00* Test Item Value Reference Range Interpretation Comme nts pdf (test code = pdf) not applicable [facility] HospitalBacteria identified in Urine by Gazvgjo5022-01-19 00:00:00* Test Item Value Reference Range Interpretation Comme nts Bacteria identified in Urine by Culture (test code = 630-4) comment [facility] and SARS-CoV-2 (COVID-19) and Respiratory syncytial virus RNA panel - Respiratory specimen by ROMELIA with probe [id number] 14:27:58* Test Item Value Reference Range Interpretation Comme nts Influenza A (test code = Inf luenza A) negative Influenza B (test code = Inf luenza B) negative RSV (test code = RSV) negative Sars Cov 2 (test code = Sars Cov 2) positive [facility] - Serum or [id number] 00:00:00* Test Item Value Reference Range Interpretation Comme nts Glucose [Mass/volume] in Serum or Plasma (test code = 2345-7) 159 mg/dL 65-99 H Urea nitrogen [Mass/volume] in Serum or Plasma (test code = 3094-0) 12 mg/dL 6-24 Creatinine [Mass/volume] in Serum or Plasma (test code = 2160-0) 0.72 mg/dL 0.57-1.00 Glomerular filtration rate/1.73 sq M.predicted among non-blacks [Volume Rate/Area] in Serum, Plasma or Blood by Creatinine-based formula (CKD-EPI) (test code = 76617-0) 94 mL/min/1.73 >59 Glomerular filtration rate/1.73 sq M.predicted among blacks [Volume Rate/Area] in Serum, Plasma or Blood by Creatinine-based formula (CKD-EPI) (test code = 97100-1) 108 mL/min/1.73 >59 Urea nitrogen/Creatinine [Mass Ratio] in Serum or Plasma (test code = 3097-3) 17 9-23 Sodium [Moles/volume] in Serum or Plasma (test code = 2951-2) 138 mmol/L 134-144 Potassium [Moles/volume] in Serum or Plasma (test code = 2823-3) 4.4 mmol/L 3.5-5.2 Chloride [Moles/volume] in Serum or Plasma (test code = 2075-0) 101 mmol/L 96-106 Carbon dioxide, total [Moles/volume] in Serum or Plasma (test code = 2027-9) 21 mmol/L 20-29 Calcium [Mass/volume] in Serum or Plasma (test code = 66242-8) 10.0 mg/dL 8.7-10.2 Protein [Mass/volume] in Serum or Plasma (test code = 2885-2) 7.0 g/dL 6.0-8.5 Albumin [Mass/volume] in Serum or Plasma (test code = 1751-7) 4.4 g/dL 3.8-4.9 Globulin [Mass/volume] in Serum by calculation (test code = 57412-1) 2.6 g/dL 1.5-4.5 Albumin/Globulin [Mass Ratio ] in Serum or Plasma (test code = 1759-0) 1.7 1.2-2.2 Bilirubin.total [Mass/volume ] in Serum or Plasma (test code = 1974-2) <0.2 0.0-1.2 Alkaline phosphatase [Enzymatic activity/volume] in Serum or Plasma (test code = 6768-6) 117 IU/L 39-117 Aspartate aminotransferase [Enzymatic activity/volume] in Serum or Plasma (test code = 1920-8) 53 IU/L 0-40 H Alanine aminotransferase [Enzymatic activity/volume] in Serum or Plasma (test code = 1742-6) 70 IU/L 0-32 H [facility] [id number] 00:00:00* Test Item Value Reference Range Interpretation Comme nts pdf (test code = pdf) . [facility] ProgramHemoglobin A1c/Hemoglobin.total in [id number] 00:00:00* Test Item Value Reference Range Interpretation Comme nts Hemoglobin A1c/Hemoglobin.to yolette in Blood (test code = 4548-4) 7.6 % 4.8-5.6 H Glucose mean value [Mass/vol ume] in Blood Estimated from glycated hemoglobin (test code = 46100-1) 171 mg/dL [facility]
[2024-09-24] MEDS ORDERED: FAMOTIDINE 20 MG/2 ML VIAL IV ONE (06:08)
[2024-09-24] MEDS ORDERED: FENTANYL CITR 100 MCG/2 ML ONE (06:08)
[2024-09-24] MEDS ORDERED: ONDANSETRON 4 MG/2 ML VIAL ONE (06:10)
[2024-09-24] MEDS ORDERED: ASPIRIN 81 MG CHEWABLE TABLET ONE (06:10)
[2024-09-24 06:18] LABS: Absolute Basophils 0.1 K/uL (0-0.5); Absolute Eosinophils 0.2 K/uL (0-0.5); Absolute Lymphocytes (CBC) 2.8 K/uL (0.7-4.9); Absolute Neutrophil 6.4 K/uL (1.8-8.0); Basophils % 0.8 % (0-1.3); Eosinophils % 1.6 % (0-4.4); Hematocrit 40.3 % (36.0-45.0); Hemoglobin 13.9 g/dL (12.0-15.0); Lymphocytes % 26.6 % (15.3-44.8); MCH 33.6 pg (27.0-35.0); MCHC 34.4 g/dL (32.0-36.0); MCV 97.4 fL (80-100); MPV 9.7 fL (7.6-11.3); Monocytes % 9.3 % (3.3-12.3); Neutrophils % 61.7 % (41.7-73.7); Platelets 178 thou/uL (152-406); RBC Red Blood Cell Count 4.14 M/uL (3.86-4.86); Red Cell Distribution Width 12.6 % (12.1-15.2)
[2024-09-24 06:25] LABS: PT Prothrombin Time 11.9 SECONDS (9.4-12.5); Protime INR 1.06
[2024-09-24 06:37] LABS: Albumin 3.9 g/dL (3.4-5.0); Albumin/Globulin Ratio 1.1 (1.1-1.8); Anion Gap 11.1 mEq/L (5.0-15.0); Bilirubin Direct 0.2 mg/dL (0-0.2); Bilirubin Indirect, Calculated 0.3 mg/dL (0.2-0.8); Bilirubin Total 0.5 mg/dL (0.2-1.0); Globulin 3.6 g/dL (2.3-3.5); Magnesium 2.3 mg/dL (1.6-2.4); Potassium 4.1 mEq/L (3.5-5.1); Protein, Total 7.5 g/dL (6.4-8.2); Troponin High Sensitivity 3.3 pg/mL (<58.9)
--- NOTE | 2024-09-24 07:00 | ER ---
Nurse's Notes [facility] Name: Della Carlson Age: 59 yrs Sex: Female : 1965 Arrival Date: 09/24/2024 Time: 05:51 Bed 17 Private MD: Diagnosis: Chest pain, unspecified;Chest pain on breathing;Epigastric abdominal tenderness Presentation: 09/24 05:52 Chief complaint: Patient states: MID EPIGASTRIC PAIN FOR THE PAST FOUR DAYS. PAIN ha1 RADIATES TO THE LEFT SIDE OF CHEST AND LEFT ARM. 30 mg OF KETOROLAC WERE GIVEN. SINUS RHYTHM. 05:52 Coronavirus screen: Client denies travel out of the [place] in the last 14 days. At this ha1 time, the client does not indicate any symptoms associated with coronavirus-19. Ebola Screen: No symptoms or risks identified at this time. Initial Sepsis Screen: Does the patient meet any 2 criteria? No. Patient's initial sepsis screen is negative. Does the patient have a suspected source of infection? No. Patient's initial sepsis screen is negative. Risk Assessment: Do you want to hurt yourself or someone else? Patient reports no desire to harm self or others. Onset of symptoms was September 24, 2024. 05:52 Method Of Arrival: EMS: [facility] ha1 05:52 Acuity: MURRAY 2 ha1 Triage Assessment: 06:02 General: Appears uncomfortable, Behavior is cooperative. Pain: Complains of pain in ha1 epigastric area and headache Pain radiates to chest and left arm Pain currently is 9 out of 10 on a pain scale. Quality of pain is described as aching. Neuro: Level of Consciousness is awake, alert, obeys commands, Oriented to person, place, time, situation. Cardiovascular: Capillary refill < 3 seconds Patient's skin is warm and dry. Respiratory: Airway is patent Trachea midline Respiratory effort is even, unlabored, Respiratory pattern is regular, symmetrical. GI: Abdomen is round non-distended, Reports epigastric pain. Derm: Skin is pink, warm \T\ dry. Historical: - Allergies: 06:02 Levaquin; ha1 06:02 PENICILLINS; ha1 - Home Meds: 06:02 metformin 500 mg Oral tab 2 times per day [Active]; Cymbalta oral [Active]; hydroxyzine ha1 HCl Oral [Active]; Lisinopril Oral [Active]; Trexall oral [Active]; - PMHx: 06:02 Arthritis; Diabetes - NIDDM; Fibromyalgia; Kidney stones; Migraines; Vertigo; ha1 - PSHx: 06:02 section; lithotropsy; Cholecystectomy; ha1 - Immunization history:: Adult Immunizations up to date. - Infectious Disease History:: Denies. - Family history:: not pertinent. - Social history:: Smoking status: Patient denies any tobacco usage or history of. Screenin:09 [facility] ED Fall Risk Assessment (Adult) History of falling in the last 3 months, ha1 including since admission No falls in past 3 months (0 pts) Confusion or Disorientation No (0 pts) Intoxicated or Sedated No (0 pts) Impaired Gait No (0 pts) Mobility Assist Device Used No (0 pt) Altered Elimination No (0 pt) Score/Fall Risk Level 0 - 2 = Low Risk Oriented to surroundings, Maintained a safe environment, Educated pt \T\ family on fall prevention, incl call for assistance when getting out of bed, Hourly rounding (assess needs \T\ fall precautionary measures) done. Abuse screen: Denies threats or abuse. Denies injuries from another. Nutritional screening: No deficits noted. Tuberculosis screening: No symptoms or risk factors identified. Vital Signs: 05:52 BP 106 / 66; Pulse 89; Resp 19 S; Temp 97.9; Pulse Ox 98% on R/A; Weight 79.83 kg; ha1 Height 5 ft. 2 in. ; 05:52 Body Mass Index 32.19 (79.83 kg, 157.48 cm) ha1 ED Course: 05:52 Patient arrived in ED. [email or web address] 05:55 Joesph Wood MD is Attending Physician. darline 06:02 Triage completed. ha1 06:10 Maintain EMS IV. Dressing intact. Good blood return noted. Site clean \T\ dry. Gauge \T\ [place] 1 site: 20 G LAC. Flushed with 10 mL NS. 06:14 XRAY Chest (1 view) In Process Unspecified. EDMS 06:22 Samuel Almanzar, RN is Primary Nurse. rg5 06:58 Primary Nurse role handed off by Samuel Almanzar RN bp 06:58 Shaun Thomas, RN is Primary Nurse. bp 06:59 Janet Bangura is Hospitalizing Provider. darline 07:15 CT Abd/Pelvis - IV Contrast Only In Process Unspecified. EDMS 07:15 CT Chest For PE Angio In Process Unspecified. EDMS 11:58 delivered lunch tray to pt.. sp Administered Medications: 05:50 Drug: Aspirin PO Chewable Tablet 81 mg PO once Route: PO; rg5 13:38 Follow up: Response: No adverse reaction bp 06:15 Drug: Famotidine IVP 20 mg IVP once; dilute with 10 mL 0.9% NaCl; give over 2 minutes rg5 Route: IVP; Site: left antecubital; 13:38 Follow up: Response: No adverse reaction bp 06:23 Drug: fentaNYL (PF) IVP 50 mcg IVP once Route: IVP; Site: left antecubital; rg5 13:38 Follow up: Response: No adverse reaction bp 06:23 Drug: Ondansetron IVP 4 mg IVP once; over 2 minutes Route: IVP; Site: left antecubital; rg5 13:38 Follow up: Response: No adverse reaction bp Outcome: 07:00 Decision to Hospitalize by Provider. darline 13:37 Patient left the ED. bp Signatures: Dispatcher [employer] EDJoesph Goodman MD MD cha Pinkerton, Shawna sp Peltier, Brian, RN RN Lynne Alvarado jj6 Melissa Milan RN RN ha1 Samuel Almanzar RN RN rg5
--- NOTE | 2024-09-24 07:00 | EDPHYS ---
Physician Documentation [facility] Name: Della Carlson Age: 59 yrs Sex: Female : 1965 Arrival Date: 09/24/2024 Time: 05:51 Bed 17 Private MD: ED Physician Joesph Wood HPI: 09/24 06:00 This 59 yrs old Female presents to ER via Unassigned with complaints of Chest darline Pain. 06:00 The patient or guardian reports chest pain that is located primarily in the epigastric darline area, anterior chest wall, bilaterally. Onset: 4 day(s) ago. The pain radiates to the left scapula. Associated signs and symptoms: Pertinent positives: abdominal pain. The chest pain is described as aching. Duration: The patient or guardian reports multiple episodes, that are intermittent. Modifying factors: The symptoms are alleviated by nothing. the symptoms are aggravated by deep breath, movement. Severity of pain: At its worst the pain was moderate in the emergency department the pain is unchanged. The patient has not experienced similar symptoms in the past. Historical: - Allergies: 06:02 Levaquin; ha1 06:02 PENICILLINS; ha1 - Home Meds: 06:02 metformin 500 mg Oral tab 2 times per day [Active]; Cymbalta oral [Active]; hydroxyzine ha1 HCl Oral [Active]; Lisinopril Oral [Active]; Trexall oral [Active]; - PMHx: 06:02 Arthritis; Diabetes - NIDDM; Fibromyalgia; Kidney stones; Migraines; Vertigo; ha1 - PSHx: 06:02 section; lithotropsy; Cholecystectomy; ha1 - Immunization history:: Adult Immunizations up to date. - Infectious Disease History:: Denies. - Family history:: not pertinent. - Social history:: Smoking status: Patient denies any tobacco usage or history of. ROS: 06:00 Constitutional: Negative for fever, chills, and weight loss, Eyes: Negative for injury, darline pain, redness, and discharge, ENT: Negative for injury, pain, and discharge, Neck: Negative for injury, pain, and swelling, Respiratory: Negative for shortness of breath, cough, wheezing, and pleuritic chest pain, Back: Negative for injury and pain, : Negative for injury, bleeding, discharge, and swelling, MS/Extremity: Negative for injury and deformity, Skin: Negative for injury, rash, and discoloration, Neuro: Negative for headache, weakness, numbness, tingling, and seizure, Psych: Negative for depression, anxiety, suicide ideation, homicidal ideation, and hallucinations, Allergy/Immunology: Negative for hives, rash, and allergies, Endocrine: Negative for neck swelling, polydipsia, polyuria, polyphagia, and marked weight changes, Hematologic/Lymphatic: Negative for swollen nodes, abnormal bleeding, and unusual bruising, 06:00 Cardiovascular: Positive for chest pain, with movement, 06:00 Respiratory: Positive for cough, with no reported sputum, 06:00 Abdomen/GI: Positive for abdominal pain, nausea, of the epigastric area, right upper quadrant and left upper quadrant, Exam: 06:00 Constitutional: This is a well developed, well nourished patient who is awake, alert, darline and in no acute distress. Head/Face: Normocephalic, atraumatic. Eyes: Pupils equal round and reactive to light, extra-ocular motions intact. Lids and lashes normal. Conjunctiva and sclera are non-icteric and not injected. Cornea within normal limits. Periorbital areas with no swelling, redness, or edema. ENT: Nares patent. No nasal discharge, no septal abnormalities noted. Tympanic membranes are normal and external auditory canals are clear. Oropharynx with no redness, swelling, or masses, exudates, or evidence of obstruction, uvula midline. Mucous membranes moist. Neck: Trachea midline, no thyromegaly or masses palpated, and no cervical lymphadenopathy. Supple, full range of motion without nuchal rigidity, or vertebral point tenderness. No Meningismus. Chest/axilla: Normal chest wall appearance and motion. Nontender with no deformity. No lesions are appreciated. Cardiovascular: Regular rate and rhythm with a normal S1 and S2. No gallops, murmurs, or rubs. Normal PMI, no JVD. No pulse deficits. Respiratory: Lungs have equal breath sounds bilaterally, clear to auscultation and percussion. No rales, rhonchi or wheezes noted. No increased work of breathing, no retractions or nasal flaring. Back: No spinal tenderness. No costovertebral tenderness. Full range of motion. Female : Normal external genitalia. Skin: Warm, dry with normal turgor. Normal color with no rashes, no lesions, and no evidence of cellulitis. MS/ Extremity: Pulses equal, no cyanosis. Neurovascular intact. Full, normal range of motion., bilateral aka Neuro: Awake and alert, GCS 15, oriented to person, place, time, and situation. Cranial nerves II-XII grossly intact. Motor strength 5/5 in all extremities. Sensory grossly intact. Cerebellar exam normal. Normal gait. Psych: Awake, alert, with orientation to person, place and time. Behavior, mood, and affect are within normal limits. 06:00 Musculoskeletal/extremity: ROM: intact in all extremities, full active range of motion, full passive range of motion, Circulation is intact in all extremities. Sensation intact. Compartment Syndrome exam of affected extremity: is normal. Weight bearing: able to fully bear weight, without difficulty, DVT Exam: No signs of deep vein thrombosis. no pain, no swelling, no tenderness, negative Homans' sign noted on exam, no appreciated bluish discoloration, no erythema, no increased warmth, 06:06 ECG was reviewed by the Attending Physician. [facility] Vital Signs: 05:52 BP 106 / 66; Pulse 89; Resp 19 S; Temp 97.9; Pulse Ox 98% on R/A; Weight 79.83 kg; ha1 Height 5 ft. 2 in. ; 05:52 Body Mass Index 32.19 (79.83 kg, 157.48 cm) [facility] MDM: 05:55 Medical Screening Exam initiated [facility] 06:03 Differential diagnosis: abnormal EKG, acute myocardial infarction, acute pericarditis, darline chest wall pain, costochondritis, esophagitis, gastritis, gastroesophageal reflux disease (GERD), hiatal hernia, pancreatitis, pleurisy, pneumonia, pneumothorax, pulmonary embolus, stable angina, thoracic aortic disection, unstable angina. HEART Score: History: Slightly Suspicious (0), ECG: Non specific repolarization disturbance / LBTB / PM (1), Age: > 45 and < 65 years (1), Risk Factors: 1 or 2 risk factors (1), [Hypertension] [+ Family HX] Troponin: < or = 1 x Normal Limit (0). The patient was given aspirin in the Emergency Department. GALLO Risk Score: TOTAL SCORE = 0. Data reviewed: vital signs, nurses notes, lab test result(s), EKG, radiologic studies, CT scan, plain films. Consideration of Admission/Observation Patient was admitted/placed on observation. Escalation of care including admission/observation considered. I considered the following discharge prescriptions or medication management in the emergency department Medications were administered in the Emergency Department. See MAR. Independent interpretation of the following test(s) in the Emergency Department EKG: See my EKG interpretation above. Test considered but Not performed: Ultrasound no 2 d echo. Historians other than the Patient: EMS: ems well informed. Care significantly affected by the following chronic conditions: Hypertension, Obesity. Counseling: I had a detailed discussion with the patient and/or guardian regarding the historical points, exam findings, and any diagnostic results supporting the discharge/admit diagnosis, lab results, radiology results, the need for further work-up and treatment in the hospital. 09/24 05:57 Order name: Basic Metabolic Panel; Complete Time: 06:57 darline 09/24 05:57 Order name: CBC with Diff; Complete Time: 06:57 darline 09/24 05:57 Order name: LFT's; Complete Time: 06:57 darline 09/24 05:57 Order name: Magnesium; Complete Time: 06:57 darline 09/24 05:57 Order name: NT PRO-BNP; Complete Time: 06:57 darline 09/24 05:57 Order name: PT-INR; Complete Time: 06:57 darline 09/24 05:57 Order name: Troponin HS; Complete Time: 06:57 darline 09/24 05:57 Order name: Lipase; Complete Time: 06:57 darline 09/24 05:57 Order name: Urinalysis w/ reflexes [facility] 09/24 08:12 Order name: Influenza Screen (A EDMN 09/24 08:12 Order name: Respiratory Syncytial Virus Ag EDMN 09/24 08:12 Order name: SARS-COV-2 Antigen Rapid EDMN 09/24 08:19 Order name: CBC with Automated Diff EDMN 09/24 08:19 Order name: CBC with Automated Diff EDMN 09/24 08:19 Order name: Comprehensive Metabolic Panel EDMN 09/24 08:19 Order name: Comprehensive Metabolic Panel EDMN 09/24 08:19 Order name: Lipid Profile EDMN 09/24 08:19 Order name: Lipid Profile EDMN 09/24 11:58 Order name: Glucose, Ancillary Testing EDMN 09/24 05:57 Order name: XRAY Chest (1 view); Complete Time: 07:54 darline 09/24 05:57 Order name: CT Abd/Pelvis - IV Contrast Only; Complete Time: 07:54 darline 09/24 05:57 Order name: CT Chest For PE Angio; Complete Time: 07:54 darline 09/24 05:57 Order name: EKG; Complete Time: 05:58 [facility] 09/24 05:57 Order name: Cardiac monitoring; Complete Time: 06:24 [facility] 09/24 05:57 Order name: EKG - Nurse/Tech; Complete Time: 06:05 [facility] 09/24 05:57 Order name: IV Saline Lock; Complete Time: 06:05 [facility] 09/24 05:57 Order name: Labs collected and sent; Complete Time: 06:05 [facility] 09/24 05:57 Order name: O2 Per Protocol; Complete Time: 06:05 [facility] 09/24 05:57 Order name: O2 Sat Monitoring; Complete Time: 06:05 [facility] EC:06 Rate is 83 beats/min. Rhythm is regular. QRS [place] is Normal. ID interval is normal. QRS darline interval is normal. QT interval is normal. No Q waves. T waves are Normal. No ST changes noted. Clinical impression: Normal ECG and No evidence of ischemia. Interpreted by me. Reviewed by me. Administered Medications: 05:50 Drug: Aspirin PO Chewable Tablet 81 mg PO once Route: PO; rg5 13:38 Follow up: Response: No adverse reaction bp 06:15 Drug: Famotidine IVP 20 mg IVP once; dilute with 10 mL 0.9% NaCl; give over 2 minutes rg5 Route: IVP; Site: left antecubital; 13:38 Follow up: Response: No adverse reaction bp 06:23 Drug: fentaNYL (PF) IVP 50 mcg IVP once Route: IVP; Site: left antecubital; rg5 13:38 Follow up: Response: No adverse reaction bp 06:23 Drug: Ondansetron IVP 4 mg IVP once; over 2 minutes Route: IVP; Site: left antecubital; rg5 13:38 Follow up: Response: No adverse reaction bp Disposition Summary: 09/24/24 07:00 Hospitalization Ordered Notes: Hospitalization Status: Observation darline Provider: Janet Bangura darline Condition: Fair darline Problem: new darline Symptoms: have improved darline Bed/Room Type: Standard darline Location: Telemetry/MedSurg (observation)(09/24/24 12:41) Room Assignment: 210(09/24/24 12:41) Diagnosis - Chest pain, unspecified darline - Chest pain on breathing darline - Epigastric abdominal tenderness darline Forms: - Medication Reconciliation Form darline - SBAR form darline - Leadership Thank You Letter [facility] Signatures: Dispatcher [employer] EDMS Joesph Wood MD MD cha Waters, Shelly, GUIDE ESCORT-C GUIDE ESCORT-Meghan Campos Shelby, MARY RN ss Melissa Milan, RN RN ha1 Samuel Almanzar RN RN rg5 Shaun Thomas RN bp Corrections: (The following items were deleted from the chart) 05:58 05:58 BASIC METABOLIC PANEL+C.LAB.BRZ ordered. EDMS EDMS 05:58 05:58 CBC+H.LAB.BRZ ordered. EDMS EDMS 05:58 05:58 HEPATIC FUNCTION+C.LAB.BRZ ordered. EDMS EDMS 05:58 05:58 MAGNESIUM+C.LAB.BRZ ordered. EDMS EDMS 05:58 05:58 PROBNP+C.LAB.BRZ ordered. EDMS EDMS 05:58 05:58 PROTIME (+INR)+COAG.LAB.BRZ ordered. EDMS EDMS 05:58 05:58 Troponin High Sensitivity+C.LAB.BRZ ordered. EDMS EDMS 05:58 05:58 LIPASE+C.LAB.BRZ ordered. EDMS EDMS 05:58 05:58 Urinalysis+U.LAB.BRZ ordered. EDMS EDMS 08:50 07:00 Telemetry/MedSurg (observation) darline sp 08:50 07:00 darline sp 12:41 08:50 [facility] ER HOLD sp ss 12:41 08:50 ERHOLD- sp ss
--- NOTE | 2024-09-24 07:15 | P.HP ---
Certification for Inpatient Patient admitted to: Observation With expected LOS: <2 Midnights Patient will require the following post-hospital care: None Practitioner: I am a practitioner with admitting privileges, knowledge of patient current condition, hospital course, and medical plan of care. Services: Services provided to patient in accordance with Admission requirements found in Title 42 Section 412.3 of the Code of Federal Regulations Patient History Date of Service: 09/24/24 Reason for admission: abdominal pain, dyspepsia History of Present Illness: Ms. Carlson is a 59yo female with a past medical history of HTN, DM, Fibromyalgia, GERD, Kidney stones, and Arthritis who presented to the ED this am for abdominal (epigastric) pain that has kept her awake for the past 4 nights. She is s/p Cholecystectomy and states she has recently changed her diet to include more greens and fruits. She states she has a had a "little cough", malaise, and na usea. We will hydrate her and try to relieve her symptoms and expect early am discharge. Labs: Unremarkable Imaging: CT for PE and abd/pelvis, Chest xray negative Allergies Penicillins Allergy (Severe, Verified 12/23/12 12:23) Anaphylaxis levofloxacin [From Levaquin] Allergy (Verified 09/10/17 15:45) Unknown Home medications list reviewed: Yes Home Medications: Metformin ER [Glucophage ER*] 500 mg PO BID 02/14/13 Aspirin [Aspirin EC 81 MG] 81 mg PO DAILY 09/10/17 Pantoprazole [Protonix Tab] 40 mg PO DAILY #30 tab 09/10/17 - Past Medical/Surgical History Diabetic: Yes -: Diabetes -: ARTHRITIS -: DIABETES -: MIGRAINES -: NEUROPATHY -: KIDNEY STONES -: GERD -: FIBROMYALGIA -: -: LITHOTRIPSY -: CHOLECYSTECTOMY Psychosocial/ Personal History: Nonsmoker, No ETOH, No assistive devices, lives at home - Family History Father -: Diabetes, Stroke Mother -: Heart disease, Hypertension, Diabetes Brother -: Diabetes Sister -: Heart disease, Hypertension, Diabetes, Cancer - Social History Smoking Status: Never smoker Alcohol use: No CD- Drugs: No Caffeine use: No Place of Residence: Home Review of Systems 10-point ROS is otherwise unremarkable General: Malaise Eyes: Unremarkable ENT: Unremarkable Respiratory: Cough, Pleuritic Pain, As per HPI Cardiovascular: Unremarkable Gastrointestinal: Nausea, Abdominal Pain, Constipation, As per HPI Genitourinary: Unremarkable Musculoskeletal: Unremarkable Integumentary: Unremarkable Neurological: Unremarkable Lymphatics: Unremarkable Physical Examination - Physical Exam General: Alert, In no apparent distress, Oriented x3 HEENT: Atraumatic, Normocephalic Neck: Supple Respiratory: Clear to auscultation bilaterally, Normal air movement Cardiovascular: Normal pulses, Regular rate/rhythm, Normal S1 S2 Capillary refill: <2 Seconds Gastrointestinal: Soft and benign Musculoskeletal: No clubbing, No swelling Integumentary: No rashes Neurological: Normal speech, Normal tone, Normal affect Lymphatics: No axilla or inguinal lymphadenopathy External genitalia: Deferred Rectal: Deferred - Studies Laboratory Data (last 24 hrs) 09/24/24 09/24/24 09/24/24 06:05 06:05 06:05 WBC 10.40 Hgb 13.9 Hct 40.3 Plt Count 178 PT 11.9 INR 1.06 Sodium 137 Potassium 4.1 BUN 24 H Creatinine 0.77 Glucose 167 H Magnesium 2.3 Total Bilirubin 0.5 AST 30 ALT 50 Alkaline Phosphatase 92 Lipase 33 Assessment and Plan - Plan GERD/Dyspepsia Protonix carafate Diabetes - controlled Continue Insulin Glargine 25U daily Clear liquid diet FSBS monitoring with mild SSI coverage Constipation Lactulose 20gm po this am VTE/GI prophylaxis SCDs/Protonix Expect Discharge in AM Discharge Plan: Home Plan to discharge in: 24 Hours - Advance Directives Does patient have a Living Will: No Does patient have a Durable POA for Healthcare: No - Code Status/Comfort Care Code Status Assessed: Yes (Full) Critical Care: No
--- NOTE | 2024-09-24 07:40 | RAD REPORT ---
EXAMINATION: CTA CHEST PE CLINICAL INDICATION: Dyspnea;Pain TECHNIQUE: This examination was performed according to an angiographic protocol with 3D post-processi ng. This involves 3D reconstructions, MIPs, volume rendered images and/or shaded surface rendering. One or more of the following dose reduction techniques were used: Automated exposure control, adjustm ent of the mA and/or kV according to patient size, and/or iterative reconstruction. Unless otherwise specified, incidental findings do not require dedicated imaging follow-up. COMPARISON: 10/12/2015 FINDINGS: PULMONARY ARTERIES: Normal caliber. No evidence of pulmonary emboli to the subsegmental level. THORACIC AORTA: Normal caliber and configuration. LUNGS: No evidence of airspace or interstitial process. No nodules. PLEURA: No pleural effusion. No pneumothorax. MEDIASTINUM AND LYMPH NODES: No mediastinal mass or fluid collection. Normal size mediastinal, hilar, and axillary lymph nodes. OSSEOUS STRUCTURES AND CHEST WALL: Intact. UPPER ABDOMEN: No significant abnormalities. IMPRESSION: No evidence of pulmonary emboli to the subsegmental level.
--- NOTE | 2024-09-24 07:44 | RAD REPORT ---
EXAMINATION: CT ABDOMEN AND PELVIS WITH CONTRAST CLINICAL INDICATION: ABD PAIN TECHNIQUE: CT abdomen and pelvis was performed, after the administration of IV contrast, as per [facility] protocol. Axial, sagittal and coronal reconstructions were obtained. One or more of the following dose reduction techniques were used: Automated exposure control, adjustment of the mA and k V according to patient size, and iterative reconstruction. Unless otherwise specified, incidental findings do not require dedicated imaging follow-up. COMPARISON: 10/26/2019, 07/14/2019 FINDINGS: LOWER CHEST: The visualized lung bases are clear. LIVER: Normal in size and contour. No focal lesion. Cholecystectomy clips. SPLEEN: Normal size. No focal lesion. PANCREAS: No mass, ductal dilation, or get-pancreatic fluid. ADRENALS: Normal; no mass. KIDNEYS: Normal size and contour. No hydronephrosis. Nonobstructing left renal calculus. GASTROINTESTINAL TRACT: No evidence of free air, significant intra-abdominal free fluid, bowel obstru ction or abscess. Mild stool is retained in the colon. APPENDIX: Appendix not visualized, but no inflammatory changes in region of appendix. LYMPH NODES: No lymphadenopathy. MUSCULOSKELETAL: No acute or suspicious osseous abnormality. ADDITIONAL FINDINGS: 4.5 cm fat-containing right adnexal lesion likely ovarian dermoid. IMPRESSION: No acute or concerning abnormalities seen in the abdomen or pelvis.
--- NOTE | 2024-09-24 07:48 | RAD REPORT ---
EXAMINATION: ONE VIEW CHEST XR CLINICAL INDICATION: CHEST PAIN TECHNIQUE: Frontal chest projection is submitted. Examination is limited by patient positioning and t echnique. COMPARISON: 11/08/2018 FINDINGS: The lungs are well inflated and clear. The heart is normal in size. No displaced fractures identified . IMPRESSION: No acute intrathoracic abnormalities.
[2024-09-24] MEDS: LACTULOSE 20 GM/30 ML UCUP PO ONE (08:11)
[2024-09-24] MEDS ORDERED: SODIUM CHLORIDE 0.9% 10ML INJ IV PRN (08:11)
[2024-09-24] MEDS ORDERED: D10W 125 ML IV PRN (08:34)
[2024-09-24] MEDS ORDERED: GLUCAGON 1 MG/VIAL IM PRN (08:34)
[2024-09-24] MEDS: lisinopriL 5 MG TAB PO SCH (09:00)
[2024-09-24] MEDS: PANTOPRAZOLE 40 MG INJ IVP SCH (09:00)
[2024-09-24] MEDS: INSULIN GLARGINE 100 UNIT/ML SQ SCH (09:00)
[2024-09-24] MEDS ORDERED: INSULIN GLARGINE 100 UNIT/ML SQ ONE (10:11)
[2024-09-24] MEDS ORDERED: lisinopriL 5 MG TAB ONE (10:12)
[2024-09-24] MEDS ORDERED: PANTOPRAZOLE 40 MG INJ ONE (10:12)
[2024-09-24] MEDS ORDERED: LACTULOSE 20 GM/30 ML UCUP ONE (10:12)
[2024-09-24 10:29] LABS: SARS-CoV-2 Antigen CONTROL BLUE LINE VIS/BG OK; SARS-CoV-2 Antigen Rapid Res Negative (Negative)
[2024-09-24] MEDS: SUCRALFATE 1 GM TABLET PO SCH (11:30)
[2024-09-24] MEDS ORDERED: SUCRALFATE 1 GM TABLET ONE (12:06)
[2024-09-24 12:32] VITALS: BMI 32.1
[2024-09-24] MEDS: ACETAMINOPHEN 500 MG TAB PO PRN (13:56)
[2024-09-24 14:25] LABS: Sqamous Epithelial <5 /HPF (None Seen); Urine Bacteria <20 /HPF (<20); Urine Bilirubin NEGATIVE (Negative); Urine Blood 1+ (Negative); Urine Clarity Clear (Clear); Urine Color Light-Yellow (Yellow); Urine Culture Reflex Order NOT NEEDED; Urine Glucose 4+ (Over) (Negative); Urine Ketones NEGATIVE (Negative); Urine Microscopic Reflex YN ORDER UMIC; Urine Mucus Slight /HPF (None Seen); Urine Nitrite NEGATIVE (Negative); Urine Protein NEGATIVE (Negative); Urine Urobilinogen Normal (Normal); Urine pH 5.5 (5.0-7.0)
[2024-09-24 14:29] LABS: Specific Gravity > 1.030 (1.005-1.030)
[2024-09-24] MEDS: MORPHINE 2 MG/ML SYR IV PRN (15:11)
[2024-09-24] MEDS: HYDROCODONE/APAP 5/325 MG TAB PO PRN (20:34)
[2024-09-25 06:18] LABS: Absolute Basophils 0.1 K/uL (0-0.5); Absolute Eosinophils 0.2 K/uL (0-0.5); Absolute Lymphocytes (CBC) 3.5 K/uL (0.7-4.9); Absolute Monocytes 0.6 K/uL (0.1-1.3); Absolute Neutrophil 2.1 K/uL (1.8-8.0); Basophils % 1.2 % (0-1.3); Eosinophils % 3.8 % (0-4.4); Hematocrit 42.9 % (36.0-45.0); Hemoglobin 14.4 g/dL (12.0-15.0); Lymphocytes % 53.6 % (15.3-44.8); MCH 33.1 pg (27.0-35.0); MCHC 33.6 g/dL (32.0-36.0); MCV 98.4 fL (80-100); MPV 10.1 fL (7.6-11.3); Monocytes % 9.2 % (3.3-12.3); Neutrophils % 32.2 % (41.7-73.7); Nucleated Red Blood Cells % 0.1 % (0-0); Platelets 181 thou/uL (152-406); RBC Red Blood Cell Count 4.36 M/uL (3.86-4.86); Red Cell Distribution Width 12.6 % (12.1-15.2)
[2024-09-25 06:33] LABS: Albumin 3.6 g/dL (3.4-5.0); Albumin/Globulin Ratio 0.9 (1.1-1.8); Anion Gap 9.6 mEq/L (5.0-15.0); Bilirubin Total 0.7 mg/dL (0.2-1.0); Globulin 3.9 g/dL (2.3-3.5); Potassium 4.6 mEq/L (3.5-5.1); Protein, Total 7.5 g/dL (6.4-8.2)
[2024-09-25 07:37] LABS: Blood Morphology Comment NOT SEEN (NOT SEEN); Platelet Estimate ADEQ; White Blood Cell Scan OK (OK)
[2024-09-25 07:50] VITALS: BP 99/57
[2024-09-25 08:42] VITALS: TEMP 97.6
[2024-09-25 10:15] VITALS: O2SAT 96
--- NOTE | 2024-09-25 13:10 | P.DS ---
Admission Date: 09/24/24 Discharge Date: 09/25/24 Disposition: ROUTINE DISCHARGE Discharge Condition: GOOD Reason for Admission: abdominal pain, dyspepsia Brief History of Present Illness: Ms. Carlson is a 59yo female with a past medical history of HTN, DM, Fibromyalgia, GERD, Kidney stones, and Arthritis who presented to the ED this am for abdominal (epigastric) pain that has kept her awake for the past 4 nights. She is s/p Cholecystectomy and states she has recently changed her diet to include more greens and fruits. She states she has a had a "little cough", malaise, and nausea. We will hydrate her and try to relieve her symptoms and expect early am discharge. Labs: Unremarkable Imaging: CT for PE and abd/pelvis, Chest xray negative Hospital Course: Ms. Carlson has an appointment for an Upper GI on 09/30/23. She continues with epigastric discomfort. We discussed ulcer and use of anti-inflammatories. Her hemoglobin is stable and she has no history of melena or hematemesis. I will discharge her with instructions for a bland diet, gastroparesis diet, and carafate. She will need follow up with her PCP in 1-2 weeks as well. Pt requests Meclizine for history of vertigo. Vital Signs/Physical Exam: Temp Pulse Resp BP Pulse Ox 97.6 F 62 14 99/57 L 95 09/25/24 08:00 09/25/24 08:00 09/25/24 09:07 09/25/24 08:00 09/25/24 09:07 Other Physical/Emotional Findings: - Physical Exam. General: Alert, Oriented x3, Cooperative, no distress. HEENT: Atraumatic, Normocephalic. Neck: Supple. Respiratory: Clear to auscultation bilaterally, Normal air movement. Cardiovascular: No edema, Regular rate/rhythm, Normal S1 S2. Capillary refill: <2 Seconds. Gastrointestinal: Soft and benign, without hepatosplenomegaly. Musculoskeletal: No clubbing, No swelling. Integumentary: No rashes, No breakdown. Neurological: Normal gait, Normal speech, Normal strength at 5/5 x4 extr, Cranial nerves 3-12 intact, Normal affect. Lymphatics: No axilla or inguinal lymphadenopathy Laboratory Data at Discharge: WBC 6.50 thou/uL (4.3-10.9) 09/25/24 05:46 Hgb 14.4 g/dL (12.0-15.0) 09/25/24 05:46 Hct 42.9 % (36.0-45.0) 09/25/24 05:46 Plt Count 181 thou/uL (152-406) 09/25/24 05:46 PT 11.9 SECONDS (9.4-12.5) 09/24/24 06:05 INR 1.06 09/24/24 06:05 Sodium 135 mEq/L (136-145) L 09/25/24 05:46 Potassium 4.6 mEq/L (3.5-5.1) 09/25/24 05:46 BUN 15 mg/dL (7-18) 09/25/24 05:46 Creatinine 0.61 mg/dL (0.55-1.02) 09/25/24 05:46 Glucose 123 mg/dL (74-106) H 09/25/24 05:46 Magnesium 2.3 mg/dL (1.6-2.4) 09/24/24 06:05 Total Bilirubin 0.7 mg/dL (0.2-1.0) 09/25/24 05:46 AST 51 U/L (15-37) H 09/25/24 05:46 ALT 53 U/L (13-56) 09/25/24 05:46 Alkaline Phosphatase 75 U/L (45-117) 09/25/24 05:46 Triglycerides 113 mg/dL (<150) 09/25/24 05:46 Cholesterol 174 mg/dL (<200) 09/25/24 05:46 HDL Cholesterol 36 mg/dL (40-60) L 09/25/24 05:46 Cholesterol/HDL Ratio 4.83 09/25/24 05:46 Lipase 33 U/L (13-75) 09/24/24 06:05 Home Medications: Pantoprazole [Protonix Tab*] 40 mg PO DAILY #30 tab 09/10/17 Duloxetine [Cymbalta *] 20 mg PO BID 09/24/24 Insulin Degludec [Tresiba] 25 unit SQ DAILY 09/24/24 lisinopriL [Lisinopril] 5 mg PO DAILY 09/24/24 Meclizine HCl [Bonine] 25 mg PO Q8HP #1 box 09/25/24 Sucralfate [Carafate*] 1 gm PO ACHS #60 tab 09/25/24 New Medications: Meclizine HCl [Bonine] 25 mg PO Q8HP #1 box Sucralfate [Carafate*] 1 gm PO ACHS #60 tab Physician Discharge Instructions: Ms. Carlson has an appointment for an Upper GI on 09/30/23. She continues with epigastric discomfort. We discussed ulcer and use of anti-inflammatories. Her hemoglobin is stable and she has no history of melena or hematemesis. I will discharge her with instructions for a bland diet, gastroparesis diet, and carafate. She will need follow up with her PCP in 1-2 weeks as well. Pt requests Meclizine for history of vertigo. Diet: Hardin Activity: Ad ivy Followup: RADHA GARCIA [Primary Care Provider] -
--- NOTE | 2024-09-26 12:46 | EKG ---
Test Date: 2024-09-24 Test Time: 05:58:30 Him Manager: SUDHIR MEASUREMENT RESULTS: Intervals: Rate: 83 CT: 156 QRSD: 84 QT: 394 QTc: 462 Kenna: P: -4 CT: 156 QRS: 70 T: 61 INTERPRETIVE STATEMENTS: Normal sinus rhythm Normal ECG No previous ECG available for comparison Electronically Signed On 09-26-24 12:42:07 NURSES' AIDE by George Gonzalez
== END 2024-09-25 10:32 | disposition home or self-care (01) ==
LOC: ER 05:51 → ERHOLD 08:11 → 2ND 12:58
PROVIDERS: ADMIT Internal Medicine; ATTEND Internal Medicine
DX: K21.9 Gastro-esophageal reflux disease without esophagitis (principal); I10 Essential (primary) hypertension; E11.9 Type 2 diabetes mellitus without complications; M79.7 Fibromyalgia; K59.00 Constipation, unspecified; N20.0 Calculus of kidney; M19.90 Unspecified osteoarthritis, unspecified site; R05.9 Cough, unspecified; R11.0 Nausea; R53.81 Other malaise; Z88.0 Allergy status to penicillin; Z88.1 Allergy status to other antibiotic agents
CPT/HCPCS: 93005; 85025 ×2; 81001; 80048; 36415 ×2; 83735; 85610; 80061; 82947 ×4; 80076; 84484 ×3; 83690; 80053; 83880; 87807; 87804 ×2; 71275; 74177; 71045; 96375; 96374; 99284; 87811; J2470 ×2; J3010; J2270 ×3; J2405; G0378 ×4